=== PATIENT | female | born 1940 | race Caucasian/White ===

== ENCOUNTER 2016-04-26 15:03 | Emergency (ER) | payer MEDICARE, MEDICAID ==
[~2016-04-26] VITALS: Ht 162.6 cm; Wt 96.4 kg
[~2016-04-26 15:03] MED LIST: ADV250INH IH; ALBU8.5H2 INHALATION; PRED-508 PO
[2016-04-26 15:06] VITALS: BP 122/86; PULSE 71; RESP 24; O2SAT 93
--- NOTE | 2016-04-26 15:14 | ED.REPORT ---
HPI-Dyspnea / Wheezing Date of Service Apr 26, 2016 ED Provider: Thom Tong Anna A 76 year old female with a history of COPD, hypertension, asthma, and pneumonia presents to the ED complaining of shortness of breath. She has been short of breath for two days, which has been accompanied by a productive cough with clear sputum. The cough is slightly worse than baseline. She denies fever. The pt was seen for similar symptoms two months ago and was discharged on 4 liters of oxygen. She has been using this regularly at home. She has not been using her albuterol treatments very frequently, though she used it twice today. The pt believes that her symptoms are due to her COPD. Nursing Notes Stated Complaint: SOB Chief Complaint: Respiratory Distress Nursing Notes Reviewed: Yes Allergies: Coded Allergies: Penicillins (Verified Allergy, Unknown, 08/13/15) Sulfa (Sulfonamide Antibiotics) (Verified Allergy, Unknown, 08/13/15) Scheduled Azithromycin (Zithromax) 250 Mg Tablet 250 MG PO DAILY Fluticasone/Salmeterol (Advair 250-50 Diskus) 60 Puff/Inh Disk 1 PUFF IH BID Prednisone (Deltasone) 20 Mg Tablet 40 MG PO BID Prednisone (PredniSONE) 50 Mg Tablet 50 MG PO DAILY Scheduled PRN Albuterol HFA (Proair HFA) 8.5 Gm Hfa.aer.ad 2 PUFFS INHALATION Q4H PRN PRN For Shortness of Breath General Time Seen by MD: 15:13 Chief Complaint Shortness of breath Hx Obtained From: Patient Arrived By: Wheelchair Sudden in Onset?: No Onset Occurred: 2 days ago Symptom Duration: Since onset Recent Healthcare: Recent doctor visit, Recent hospitalization Similar Sx Previous: Yes Past Medical History Past Medical History Notes: PCP: Dr. Ariana Miller Patient had abdominal CT 09/05/2014 for hernia, bilateral hip osteoarthritis was noted at that time. Admitted November 2013 for left lower lobe pneumonia Past Medical History chronic hip and back pain Pneumonia with hospitalization. Reports: Asthma, COPD, Hypertension Past Surgical History Stomach surgery. Right leg surgery. Family History non-contributory Smoking History Current Every Day Smoker, Heavy Tobacco Smoker Social History has been living in her van for ten years Alcohol Use: Denies alcohol use Drug Use: Denies drug use Other Social History: Homeless Ambulatory Status Walker Review of Systems Constitutional: Denies: Fever Respiratory: Reports: Prod cough, clear, Shortness of breath Cardiovascular: Denies: Chest pain Musculoskeletal: Denies: Back pain, Neck pain Skin: Denies Rash Complete sys rev & neg: except as marked. GI: Denies: Abdominal pain Physical Exam Initial Vital Signs Vital Signs (First) Date Time Temp Pulse Resp B/P Pulse Ox O2 Delivery O2 Flow Rate FiO2 04/26/16 15:06 36.2 71 24 122/86 93 Nasal Cannula 4 Initial VS: Reviewed General/Constitutional: Awake, Alert Neck: Atraumatic, Supple, Full range of motion Respiratory / Chest: Atraumatic, Breath sounds = bilat, No respiratory distress prolonged expiration bibasilar rales with inspiration Cardiovascular: Regular rhythm, Heart sounds NL, No murmurs Heart Rate / Rhythm: Positive: Tachycardia ENT: Atraumatic, Airway patent, Mucous membranes moist Abdomen: Atraumatic, Soft, Non-tender Back: Atraumatic, Full range of motion Lower Extremity / Pelvis / MS: Atraumatic, Full range of motion trace edema bilaterally Skin: Atraumatic, Color NL, No rash, Warm, Dry Neurologic: Oriented X3, Speech NL, No motor deficits, No sensory deficits Head / Eyes: Atraumatic, Normocephalic, PERRL, EOMI Upper Extremity / MS: Atraumatic, Full range of motion Psychiatric: Affect NL, Mood NL Interpretation & Diagnostics Lab Results Interpretation Result Diagram: 04/26/16 1546 04/26/16 1546 Test 04/26/16 15:46 White Blood Count 10.1th/mm3 (3.8-10.1) Red Blood Count 5.38mil/mm3 (3.90-5.20) Hemoglobin 16.3g/dL (12.0-15.6) Hematocrit 50.1% (35.0-46.0) Mean Corpuscular Volume 93.1fL (81-100) Mean Corpuscular Hemoglobin 30.3pg (27.0-35.0) Mean Corpuscular Hemoglobin Concent 32.5% (32.0-37.0) Red Cell Distribution Width 13.7% (12.3-15.4) Platelet Count 307bil/L (150-400) Neutrophils (%) (Auto) 65.8% (40-74) Lymphocytes (%) (Auto) 20.8% (14-46) Monocytes (%) (Auto) 10.4% (4-12) Eosinophils (%) (Auto) 2.6% (0-5) Basophils (%) (Auto) 0.3% (0-3) Sodium Level 144mEq/L (134-144) Potassium Level 4.0mEq/L (3.5-5.2) Chloride Level 101mEq/L (97-108) Carbon Dioxide Level 30mmol/L (18-29) Blood Urea Nitrogen 12mg/dL (8-27) Creatinine 0.72mg/dL (0.57-1.00) Estimat Glomerular Filtration Rate 113mL/min (>59) Glucose Level 131mg/dL (60-99) Calcium Level 9.0mg/dL (8.5-10.1) Total Bilirubin 0.3mg/dL (0.0-1.2) Aspartate Amino Transf (AST/SGOT) 16U/L (0-50) Alanine Aminotransferase (ALT/SGPT) 14U/L (0-32) Alkaline Phosphatase 94U/L (25-165) Troponin T < 0.010ug/L (0.0-0.011) Pro-B-Type Natriuretic Peptide 118.1pg/mL (0-738) Total Protein 6.4g/dL (6.4-8.4) Albumin 4.3g/dL (3.4-5.0) Hold [place] Top Tube Received (Received) ECG Interpretation ECG Interpretation: normal sinus rhythm with a rate of [address] changes unchanged from previous dated 02/25/2016 Time: 16:51 Interpreted by: ED physician X-Ray Chest Interpretation Chest Xray Interpretation: IMPRESSION: Bibasilar pneumonia. Continued plain film surveillance is recommended to ensure resolution, and to exclude underlying or central malignancy. Dictated by: Samuel Zamora M.D. on 04/26/2016 at 16:32 Approved by: Samuel Zamora M.D. on 04/26/2016 at 16:32 Interpretation / Wet Read by: Interpret - Radiologist Re-Eval/Medical Decision Med Decision/Clinical Course 76-year-old female with a history of COPD presents with increasing shortness of breath for the past 2 days. She is not in respiratory distress but did have some prolonged expiration and bibasilar Rales. She is stable with a pulse ox of 96 on her home oxygen of 4 L/m. X-ray shows bilateral pneumonia. Patient felt much better after receiving prednisone and 2 breathing treatments here. She notes that she only has one inhaler left so another inhaler was given here in the emergency department. Because she looks so good and has a curb 65 score of only 1 I have elected to treat her as an outpatient. She is not hypotensive or tachypneic at the time of my last check. Patient is in agreement with this plan. It is noted that she lives out of her van but she states that she does have plenty of oxygen and plenty of gas to keep her warm through the night. Source of Hx: Old records Re-Evaluation/Progress #1: Time of Eval: 16:41 Patient Status: Condition improved Re-Evaluation/Progress Note: Pt rechecked, who is feeling significantly better with breathing treatment. She is informed of her radiology results and diagnosis, as well as the plan for discharge. The pt understands and agrees with the plan. All questions are addressed at this time. Re-Evaluation/Progress #2: Time of Eval: 17:08 Patient Status: Condition improved Re-Evaluation/Progress Note: Pt rechecked, who is stable. Options for both admission and discharge are discussed. The pt feels comfortable with discharge. The pt understands and agrees with the plan. All questions are addressed at this time. Counseled Regarding: Diagnosis, Lab results, Need for follow-up, When/why to return to ED Discharge & Departure Impression: Primary Impression: Pneumonia of both lower lobes Pneumonia type: due to unspecified organism Qualified Code: J18.9 - Pneumonia, unspecified organism Additional Impression: COPD exacerbation Disposition: Home Discharge Condition All VS Reviewed: Yes Condition: Stable Patient Instructions: Bacterial Pneumonia (ED), Chronic Obstructive Pulmonary Disease (ED) Additional Instructions: Thank you for entrusting us with your care today. Your tests indicate that you have pneumonia. Take your prednisone and azithromycin once daily as prescribed. You may also use the albuterol inhaler as needed for shortness of breath. Follow up with your primary care physician next week for further evaluation. Return to the emergency department if you develop any new or concerning symptoms. Referrals: Adam Lane MD (PCP) Scribe Attestation Portions of this note were transcribed by John Naqvi I Dr. Tong personally performed the history, physical exam and medical decision-making; I reviewed and confirmed the accuracy of the information in the transcribed note. Signed by: Alana Forbes, 04/26/16 and 15:27. copies to: Adam Lane MD, Gary R DO Apr 26, 2016 15:13 JOHN NAQVI Apr 26, 2016 15:27
[2016-04-26 15:22] VITALS: BP 118/69; PULSE 108; RESP 20; O2SAT 97
[2016-04-26] MEDS ORDERED: Albuterol 2.5 mg/3 mL Inhalation Solution NEB ONE (15:25)
[2016-04-26] MEDS ORDERED: Albuterol-Ipratropium 3 mL Inhalation Solution NEB ONE (15:25)
[2016-04-26] MEDS ORDERED: predniSONE 20 mg Tablet PO ONE (15:25)
[2016-04-26 15:54] LABS: BASOPHILS % (AUTO) 0.3 % (0-3); EOSINOPHILS % (AUTO) 2.6 % (0-5); MONOCYTES % (AUTO) 10.4 % (4-12); Mean Corpuscular Hemoglobin 30.3 pg (27.0-35.0); Mean Corpuscular Volume 93.1 fL (81-100); NEUTROPHILS % (AUTO) 65.8 % (40-74); Platelet Count 307 bil/L (150-400)
[2016-04-26 16:28] VITALS: BP 126/49; PULSE 94; RESP 22; O2SAT 97
[2016-04-26 16:32] LABS: TROPONIN T < 0.010 ug/L (0.0-0.011)
--- NOTE | 2016-04-26 16:34 | DRSVH ---
PROCEDURE: X-RAY CHEST, TWO VIEWS ([id number]) INDICATIONS: sob TECHNIQUE: 2 views of the chest were acquired. COMPARISON: [facility], CR, XR CHEST 2VW, 02/25/2016, 8:05. [facility], CR , XR CHEST 2VW, 02/02/2016, 15:34. [facility], CR, XR CHEST 2VW, 07/10/2015, 10:25. FINDINGS: Surgical changes and devices: None. Lungs and pleura: No pleural effusions or pneumothorax. Mild bibasilar patchy airspace opacity. Mediastinum: Mediastinal contours are normal. Heart size is normal. Bones and chest wall: No suspicious bony abnormalities. Soft tissues appear unremarkable. IMPRESSION: Bibasilar pneumonia. Continued plain film surveillance is recommended to ensure resolutio n, and to exclude underlying or central malignancy. Dictated by: Samuel Zamora M.D. on 04/26/2016 at 16:32 Approved by: Samuel Zamora M.D. on 04/26/2016 at 16:32
[2016-04-26] MEDS ORDERED: Albuterol HFA 60 Puff 8 Gm Inhaler INHALATION ONE (16:45)
[2016-04-26] MEDS ORDERED: PRED50TA PO (17:13)
[2016-04-26] MEDS ORDERED: ZIT250 PO (17:13)
[2016-04-26 18:21] VITALS: BP 132/75; PULSE 87; RESP 18; O2SAT 98
== END 2016-04-26 18:23 | disposition home or self-care (01) ==
LOC: SED 15:03
DX: J18.9 Pneumonia, unspecified organism (principal); J44.1 Chronic obstructive pulmonary disease with (acute) exacerbation; I10 Essential (primary) hypertension; J45.909 Unspecified asthma, uncomplicated; F17.200 Nicotine dependence, unspecified, uncomplicated; Z87.01 Personal history of pneumonia (recurrent); Z59.0 Homelessness; Z88.0 Allergy status to penicillin; Z88.2 Allergy status to sulfonamides
CPT/HCPCS: 36415; 71020; 80053; 83880; 84484; 85025; 93005; 94799; 99285; J7613; J7620

== ENCOUNTER 2016-05-02 07:53 | Emergency (ER) | payer MEDICARE, MEDICAID ==
[~2016-05-02 07:53] MED LIST changes: +PRED50TA PO; +ZIT250 PO
[2016-05-02 07:55] VITALS: BP 163/110; PULSE 102; RESP 22; O2SAT 93
--- NOTE | 2016-05-02 08:06 | ED.REPORT ---
HPI-General Illness Date of Service May 02, 2016 ED Provider: Willie Cm MD Pt is a 76-year-old lady with history of COPD, recurrent pneumonia, homelessness , anxiety, depression, tobaccoism, and urinary incontinence and recent visit to the emergency department 6 days ago, 04/26 for COPD exacerbation and possible bilateral lower lobe pneumonia and was treated with duo nebs, prednisone, azithromycin who presents to the ED complaining of SOB starting this morning. She states that when the cold outside, several days ago, she started wheezing again. She states that her albuterol inhaler frozen the van after standing at the cold weather homeless halfway last evening as well as reports of malfunctioning oxygen concentrator (4 L at home, day and night) she was doing very short of breath and very anxious and decided to visit the emergency department for treatment. Pt reports aggravated nonproductive cough. She denies fever and chills. She states that she is currently homeless and lives out of her car. She currently feels pretty well on 2 L nasal cannula and she is asking for stuart crackers and cranberry juice. Nursing Notes Stated Complaint: TROUBLE BREATHING/COPD Chief Complaint: Respiratory Complaints Nursing Notes Reviewed: Yes Allergies: Coded Allergies: Penicillins (Verified Allergy, Unknown, 05/02/16) Sulfa (Sulfonamide Antibiotics) (Verified Allergy, Unknown, 05/02/16) Scheduled PRN Albuterol HFA (Proair HFA) 8.5 Gm Hfa.aer.ad 2 PUFFS INHALATION Q4H PRN PRN For Shortness of Breath General Time Seen by MD: 08:06 Chief Complaint Breathing problem Sudden in Onset?: No Past Medical History Past Medical History Notes: PCP: Dr. Ariana Miller Patient had abdominal CT 09/05/2014 for hernia, bilateral hip osteoarthritis was noted at that time. Admitted November 2013 for left lower lobe pneumonia Past Medical History chronic hip and back pain Pneumonia with hospitalization. Reports: Asthma, COPD, Hypertension Past Surgical History Stomach surgery. Right leg surgery. Family History non-contributory Smoking History Current Every Day Smoker, Heavy Tobacco Smoker Social History has been living in her van for ten years Alcohol Use: Denies alcohol use Drug Use: Denies drug use Other Social History: Homeless Ambulatory Status Walker Review of Systems A comprehensive review of systems was conducted with the patient and found to be negative except as above in the History of Present Illness. Physical Exam General: Elderly lady lying in bed in no acute distress after 10 minute interview no longer in acute distress, well-developed, well-nourished, appropriately interactive. On 2 L oxygen nasal cannula. HEENT: Normocephalic, atraumatic. External ears without defect. Pupils equal, round, and reactive to light and accommodation. Anicteric sclerae, moist conjunctivae, and no lid lag. Oropharynx free of erythema and cobble stoning with moist mucosa. Neck: Supple with full range of motion. No jugular venous distension. No bruits. No lymphadenopathy or thyromegaly. Cardiovascular: Regular rate and rhythm with no murmurs, rubs, or gallops appreciated Pulmonary: Clear to auscultation bilaterally with no crackles. Decreased air movement diffusely, minor end expiratory wheezes in the upper lobes laterally, abnormal respiratory effort with minor use of accessory muscles. With cough patient is rhonchorous and very wheezy. Abdomen: Bowel tones present. Soft, nontender, nondistended. No hepatosplenomegaly or masses appreciated. Extremities: No clubbing, cyanosis, edema, or lymphadenopathy appreciated. Mild lower extremity nonpitting edema appreciated. Skin: Normal temperature, turgor, and texture; no rash, ulcers, or subcutaneous nodules appreciated. Neurological: Cranial nerves grossly intact. Normal muscle strength, tone, and bulk. Reflexes, coordination, and sensory function within normal limits. No known gait impairment. Psychiatric: Depressed and anxious mood. Alert and oriented to person, place, and time. Vital Signs Vital Signs Date Time Temp Pulse Resp B/P Pulse Ox O2 Delivery O2 Flow Rate FiO2 05/02/16 10:19 84 23 138/66 93 Room Air 05/02/16 09:01 111 22 Nasal Cannula 4 05/02/16 07:55 36.4 102 22 163/110 93 Room Air Re-Eval/Medical Decision Med Decision/Clinical Course Miss Linda Kramer is a 76-year-old lady with history of COPD, recurrent pneumonia, homelessness, anxiety, depression, tobaccoism, and urinary incontinence and recent visit to the emergency department 6 days ago, 04/26 for COPD exacerbation and possible bilateral lower lobe pneumonia and was treated with duo nebs, prednisone, azithromycin who presents to the ED complaining of SOB starting this morning. Patient is homeless and reports living in her van for the last 14 years. She is very anxious individual and feels that without her oxygen or medical help she will . She was encouraged to stop smoking. She was just treated for possible pneumonia and COPD exacerbation 6 days ago with azithromycin and prednisone as well as DuoNeb treatments. Her presentation is much more consistent with mild COPD exacerbation and anxiety, as well as social. She has been treated with duo nebs, oxygen by nasal cannula. She is a 76-year- old with significant social needs therefore social work consult has been placed with attempts to find housing and help with home oxygen concentrator. 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 Patient's vitals are stable and she is feeling much better. Patient will be discharged with detailed instructions follow-up with primary care physician and emergency services if signs and symptoms do not improve. Discharge & Departure Primary Impression: Cough Additional Impressions: COPD (chronic obstructive pulmonary disease) Anxiety Disposition: Home Discharge Condition All VS Reviewed: Yes Condition: Stable Patient Instructions: Chronic Obstructive Pulmonary Disease (ED) Additional Instructions: During your visit to [facility] Emergency Department we treated you with a Duo-Neb nebulizer treatment with great results. You were initially treated with oxygen by nasal cannula at 2 L O2. During your stay your Oxygen levels were normal on room air. Your history and presentation were not consistent with active infection. Following your duoneb treatments you report feeling much better. This is most likely COPD exacerbation. COPD can be managed at home if you do the following. - Stay away from cigarette smoke, or other irritants. - Use your home medications for COPD. - Use your home Oxygen at 2-4 L daily. Do not hesitate to call emergency services or your primary care physician if you experience any of the following. -High unrelenting fevers. -Uncontrolled vomiting. -Severe hypertension. -Syncope or loss of consciousness. -Chest pain or severe shortness of breath. Follow up with your primary care physician in 1-2 weeks time following your emergency department visit for medication checks and general well-being. Referrals: Adam Lane MD (PCP) Attending Statement The patient was seen and examined together with Dr. Antony on 05/02/16 and I agree with the history, exam and plan as outlined in the note above. copies to: Adam Lane MD, COREY P DO May 02, 2016 08:06 Willie Cm MD May 02, 2016 15:53
[2016-05-02] MEDS ORDERED: Albuterol-Ipratropium 3 mL Inhalation Solution NEB ONE (08:15)
[2016-05-02 09:01] VITALS: PULSE 111; RESP 22
[2016-05-02 10:19] VITALS: BP 138/66; PULSE 84; RESP 23; O2SAT 93
== END 2016-05-02 10:12 | disposition home or self-care (01) ==
LOC: SED 07:53
DX: R05 Cough (principal); J44.9 Chronic obstructive pulmonary disease, unspecified; F41.9 Anxiety disorder, unspecified; I10 Essential (primary) hypertension; F17.200 Nicotine dependence, unspecified, uncomplicated; Z59.0 Homelessness; Z79.51 Long term (current) use of inhaled steroids; Z88.0 Allergy status to penicillin; Z88.2 Allergy status to sulfonamides
CPT/HCPCS: 94664; 99284; J7620

== ENCOUNTER 2016-05-05 13:11 | Inpatient (IN) | payer MEDICARE, MEDICAID ==
[~2016-05-05] VITALS: Ht 162.6 cm; Wt 97.3 kg
[2016-05-05] VITALS (9 sets, daily range): BP systolic 119–144; BP diastolic 70–95; PULSE 85–110; RESP 20–48; O2SAT 88–95
[~2016-05-05 13:11] MED LIST changes: -ADV250INH IH; -PRED-508 PO; -PRED50TA PO; -ZIT250 PO
[2016-05-05] MEDS ORDERED: Albuterol-Ipratropium 3 mL Inhalation Solution NEB ONE ×2 (13:40→14:30)
[2016-05-05] MEDS ORDERED: MethylprednisoLONE Sodium Succinate 62.5 mg/mL 2 mL Inj IVPUSH ONE ×2 (13:40→14:30)
[2016-05-05] MEDS ORDERED: 0.9% Sodium Chloride 1,000 ML IV ONE (13:40)
--- NOTE | 2016-05-05 13:42 | ED.REPORT ---
HPI-General Illness Date of Service May 05, 2016 ED Provider: Félix Walters MD The patient is a 76 year old female with history of COPD, asthma, hypertension, and pneumonia, who presents to the emergency department complaining of shortness of breath. She was seen here 2 days ago for the same symptoms. She was discharged home with antibiotics and prednisone. She lost the prednisone pills, her last dose was yesterday. She has also not been using her oxygen. She denies chest pain, fever, chills, nausea, vomiting or diarrhea. Nursing Notes Stated Complaint: TROUBLE BREATHING Chief Complaint: Respiratory Distress Nursing Notes Reviewed: Yes Allergies: Coded Allergies: Penicillins (Verified Allergy, Unknown, 05/05/16) Sulfa (Sulfonamide Antibiotics) (Verified Allergy, Unknown, 05/05/16) Scheduled Azithromycin (Zithromax (Z-Nikita)) 250 Mg Tablet 250 MG PO DIRECTED Take two tablets by mouth on day 1, then take one tablet daily on days 2 through 5. Fluticasone/Salmeterol (Advair 250-50 Diskus) 60 Puff/Inh Disk 1 PUFF IH BID Prednisone (PredniSONE) 20 Mg Tablet 20 MG PO DAILY Scheduled PRN Albuterol HFA (Proair HFA) 8.5 Gm Hfa.aer.ad 2 PUFFS INHALATION Q4H PRN PRN For Shortness of Breath General Time Seen by MD: 13:39 Chief Complaint Other (shortness of breath) Hx Obtained From: Patient Arrived By: Walk-in Sudden in Onset?: Yes Onset Occurred: 5 - 8 hours ago Symptom Duration: Since onset Severity: Current: No pain currently Severity: Maximum: No pain Recent Healthcare: No recent hospitalization, Recent doctor visit Similar Sx Previous: Yes Past Medical History Past Medical History Notes: PCP: Dr. Ariana Miller Past Medical History chronic hip and back pain Pneumonia with hospitalization. Reports: Asthma, COPD, Hypertension Past Surgical History Stomach surgery. Right leg surgery. Family History non-contributory Smoking History Current Every Day Smoker, Heavy Tobacco Smoker Social History has been living in her van for ten years Alcohol Use: Denies alcohol use Drug Use: Denies drug use Other Social History: Homeless Ambulatory Status Walker Review of Systems Full Review of Systems Constitutional: Denies: Chills, Fever Respiratory: Reports: Non-productive cough, Shortness of breath Cardiovascular: Denies: Chest pain GI: Denies: Diarrhea, Nausea, Vomiting Complete sys rev & neg: except as marked. Physical Exam Vital Signs Vital Signs Date Time Temp Pulse Resp B/P Pulse Ox O2 Delivery O2 Flow Rate FiO2 05/05/16 15:18 94 Nasal Cannula 2.5 05/05/16 13:31 36.9 108 48 144/95 90 Room Air Initial VS: Reviewed Head / Eyes: Atraumatic, Normocephalic, PERRL ENT: Mucous membranes moist, Conjunctiva normal, No scleral icterus Neck: Supple, Non-tender, Full range of motion Lymphatic: No lymphadenopathy Extremities: Vascular intact, Neuro intact, No swelling, No tenderness Skin: Warm, Dry, No cyanosis Neurologic: Alert, Oriented, Nonfocal Psychiatric: Mood/affect normal, Behavior normal, Normal thought content General/Constitutional: Awake, Alert, No acute distress, Cooperative Respiratory / Chest: No respiratory distress, No stridor, No chest tenderness, No chest wall deformity Decreased air movement throughout, prolonged expiratory phase, scattered wheezing, somewhat tachypneic. Cardiovascular: Heart rate NL, Regular rhythm, Heart sounds NL, No gallop, No murmurs, No rubs, Cap refill not delayed, Peripheral circulation NL Abdomen: Atraumatic, Soft, Non-tender, No guarding, No rebound, BS normoactive , No distention, No hernia, No palpable mass, No pulsatile mass Lower Extremity / Pelvis / MS: No deformity, Neurologic intact, Vascular intact No calf swelling or tenderness. Interpretation & Diagnostics Lab Results Interpretation Result Diagram: 05/05/16 1510 05/05/16 1510 Test 05/05/16 15:10 White Blood Count 12.1th/mm3 (3.8-10.1) Red Blood Count 5.38mil/mm3 (3.90-5.20) Hemoglobin 16.3g/dL (12.0-15.6) Hematocrit 50.7% (35.0-46.0) Mean Corpuscular Volume 94.2fL (81-100) Mean Corpuscular Hemoglobin 30.3pg (27.0-35.0) Mean Corpuscular Hemoglobin Concent 32.1% (32.0-37.0) Red Cell Distribution Width 13.7% (12.3-15.4) Platelet Count 309bil/L (150-400) Neutrophils (%) (Auto) 61.3% (40-74) Lymphocytes (%) (Auto) 24.4% (14-46) Monocytes (%) (Auto) 12.4% (4-12) Eosinophils (%) (Auto) 1.4% (0-5) Basophils (%) (Auto) 0.3% (0-3) Sodium Level 145mEq/L (134-144) Potassium Level 4.1mEq/L (3.5-5.2) Chloride Level 102mEq/L (97-108) Carbon Dioxide Level 28mmol/L (18-29) Blood Urea Nitrogen 13mg/dL (8-27) Creatinine 0.64mg/dL (0.57-1.00) Estimat Glomerular Filtration Rate 129mL/min (>59) Glucose Level 95mg/dL (60-99) Calcium Level 8.6mg/dL (8.5-10.1) Magnesium Level 2.3mg/dL (1.6-2.6) Total Bilirubin 0.3mg/dL (0.0-1.2) Aspartate Amino Transf (AST/SGOT) 19U/L (0-50) Alanine Aminotransferase (ALT/SGPT) 18U/L (0-32) Alkaline Phosphatase 98U/L (25-165) Pro-B-Type Natriuretic Peptide 112.7pg/mL (0-738) Total Protein 6.7g/dL (6.4-8.4) Albumin 4.0g/dL (3.4-5.0) Hold [place] Top Tube Received (Received) ECG Interpretation ECG Interpretation: Sinus rhythm Inferior Q waves No ST segment elevation No T wave abnormalities No prior available for comparison Time: 14:02 Interpreted by: ED physician X-Ray Chest Interpretation Chest Xray Interpretation: IMPRESSION: 1. No acute cardiopulmonary disease. 2. Nonacute lateral left seventh rib fracture. Dictated by: Isaiah Pereyra M.D. on 05/05/2016 at 14:26 Interpretation / Wet Read by: Interpret - Radiologist Re-Eval/Medical Decision Med Decision/Clinical Course The patient is a 76 year old female with history of COPD, asthma, hypertension, and pneumonia, who presents to the emergency department complaining of shortness of breath. She was seen here 2 days ago for the same symptoms. She was discharged home with antibiotics and prednisone. She lost the prednisone pills, her last dose was yesterday. She has also not been using her oxygen. Upon arrival the patient is afebrile stable vital signs. She has oxygen saturation in the low 90s on 3 L by nasal cannula and has markedly increased work of breathing and expiratory wheezing. CXR: Obtained, reviewed and interpreted by myself shows no evidence of acute infiltrates, effusions or pneumothorax. Cardiac and mediastinal silhouette normal. No bony or soft tissue abnormalities. Laboratory studies were obtained and are notable for moderate leukocytosis, stable hematocrit, good renal function, normal electrolytes and negative troponin. The patient was treated with 125 mg of IV methylprednisolone, IV fluids and back -to-back DuoNeb treatments followed by an albuterol nebulizer. The patient reported improvement in her symptoms though she remained with significant work of breathing and continued to have oxygen saturations in the low 90s on her baseline oxygen requirement. She did not feel that she was well enough to go home. The patient has significantly limited resources and ability to care for herself and I feel that she requires admission at this time for further management of her COPD exacerbation. At this time initial screening EKG as interpreted by myself and documented above as well as negative troponin are reassuring against acute coronary syndrome. Overall presentation and risk factors unconvincing for pulmonary embolism. I do not feel that further workup for PE is immediately indicated. Patient was discussed with the medical hospitalist and transferred in stable condition for further management. Source of Hx: Old records Time of Eval: 14:24 Re-Evaluation/Progress Note: The patient feels that her symptoms are bad enough that she should be in the hospital. Consultation : Referral / Consult Name: Candace Santoro MD Consulted With: Hospitalist Requested Call at: 14:30 Call Returned at: 14:38 Operator Technician: Will see patient, Agrees with eval, Agrees with plan, Accepts admit Counseled Regarding: Diagnosis, Lab results, Need for admission Discharge & Departure Primary Impression: COPD exacerbation Additional Impressions: Respiratory distress Hypoxia Noncompliance with medication regimen Leukocytosis Leukocytosis type: unspecified Qualified Code: D72.829 - Elevated white blood cell count, unspecified Tachypnea Disposition: ADMITTED TO HOSPITAL Discharge Condition All VS Reviewed: Yes Condition: Stable Referrals: Adam Lane MD (PCP) Crit Care Except Billable Proc Time Spent: 75-104 minutes Services Performed: Patient management by me, Time spent at bedside, Reviewing test results, Reviewing imaging, Discussing patient care, Documentation in record Scribe Attestation Portions of this note were transcribed by Anabell Alva. I, Dr. Walters personally performed the history, physical exam and medical decision-making; I reviewed and confirmed the accuracy of the information in the transcribed note. Signed by: Alana Tapia, 05/04/2015 and 2221. copies to: Adam Lane MD, Beck O MD May 05, 2016 13:42 Anabell Alva May 05, 2016 13:43
--- NOTE | 2016-05-05 14:29 | DRSVH ---
PROCEDURE: X-RAY CHEST, TWO VIEWS ([id number]) INDICATIONS: 76 year-old female with a shortness of breath. TECHNIQUE: 2 views of the chest were acquired. COMPARISON: [facility], CT, CHEST ANGIO-PE, 11/13/2013, 0:20. [facility], CR , XR CHEST 2VW, 04/26/2016, 16:10. [facility], CR, XR CHEST 2VW, 02/25/2016, 8:05. [facility], CR, XR CHEST 2VW, 02/02/2016, 15:34. FINDINGS: Surgical changes and devices: None. Lungs and pleura: No pleural effusions or pneumothorax. Lungs are clear, except for persistent ling ular scarring. Mediastinum: Mediastinal contours are normal. Heart size is normal. There is aortic atherosclerosi s. Bones and chest wall: No suspicious bony abnormalities. Nonacute left seventh rib fracture is again noted. Soft tissues appear unremarkable. IMPRESSION: 1. No acute cardiopulmonary disease. 2. Nonacute lateral left seventh rib fracture. Dictated by: Isaiah Pereyra M.D. on 05/05/2016 at 14:26 Approved by: Isaiah Pereyra M.D. on 05/05/2016 at 14:28
[2016-05-05] MEDS ORDERED: Albuterol 2.5 mg/3 mL Inhalation Solution NEB ONE (14:30)
[2016-05-05] MEDS ORDERED: Alum-Mag Hydrox-Simeth 30 mL Suspension PO PRN (14:40)
[2016-05-05] MEDS ORDERED: Ondansetron 2 mg/mL 2 mL Inj IVPUSH PRN (14:40)
[2016-05-05] MEDS ORDERED: PRE20 PO (15:22)
[2016-05-05] MEDS ORDERED: ADV250INH IH (15:22)
[2016-05-05] MEDS ORDERED: AZIT250T4 PO (15:22)
[2016-05-05 15:23] LABS: BASOPHILS % (AUTO) 0.3 % (0-3); EOSINOPHILS % (AUTO) 1.4 % (0-5); MONOCYTES % (AUTO) 12.4 % (4-12); Mean Corpuscular Hemoglobin 30.3 pg (27.0-35.0); Mean Corpuscular Volume 94.2 fL (81-100); NEUTROPHILS % (AUTO) 61.3 % (40-74); Platelet Count 309 bil/L (150-400)
[2016-05-05] MEDS ORDERED: levoFLOXacin Inj 500 MG in IV Premix 1 EACH IV ONE (15:40)
[2016-05-05] MEDS ORDERED: Albuterol 2.5 mg/3 mL Inhalation Solution NEB PRN (15:40)
--- NOTE | 2016-05-05 15:48 | PCM.HPMED ---
Subjective Date of Service May 05, 2016 Primary Provider: Admitting Physician: Candace Santoro MD Primary Care Physician: Adam Lane MD Attending Physician: Candace Santoro MD Chief Complaint: SOB despite medications HISTORY was OBTAINED FROM PATIENT / MEDITECH NOTES History of present illness 76y f O2 2-3L dependent, on 04/26 and 05/03 she was seen AT urgent care, was told that she had a PNA, lost prednisone. With ongoing SOB/cough despite antibiotics , and no O2 recently per ER notes, she presented to ER now w/ ongoing SOB Cough increased work of breathing. ongoing smoker. sick contact +. productive yellow phelgm. doesn't want to stay. In the ER 36.9, HR108, RR48, 144/95, 90% room air, multiple DuoNeb nebs, Solu- Medrol, diffuse wheezing Last evaluated April 26 2016 Review of Systems - none of the following - F/C/sick contact / wt change/ JOHNSON / lightheaded / dizziness / sob / cough / cp / acid reflux / n/v/diarrhea / bleeding/bruising / / change in voiding / yeast infections / rash ambulates chronic leg swelling urinary incontinence FAMILY HX she does not know any family hx SOCIAL HX smoker, lives in her van MEDICATIONS on 05/03/2016 UC list ADVAIR PREDNISON 20 Past Medical/Surgical HX PCP: Dr. Ariana Miller COPD/O2 dependent 2-3 L/ asthma Cataracts Headache hypertension Pneumonia Asthma/emphysema/COPD Gastric ulcer/GERD Recurrent UTI Arthritis/back injury/.chronic hip and back pain Depression right leg operation stomach operation Allergies Coded Allergies: Penicillins (Verified Allergy, Unknown, 05/05/16) Sulfa (Sulfonamide Antibiotics) (Verified Allergy, Unknown, 05/05/16) PMH Social History Hx Alcohol Use: No Hx Substance Use: No Hx Tobacco Use: Yes Smoking Status: Current Every Day Smoker, Heavy Tobacco Smoker Exam Vital Signs Vital Sign - Last Date Time Temp Pulse Resp B/P Pulse Ox O2 Delivery O2 Flow Rate FiO2 05/05/16 15:18 94 Nasal Cannula 2.5 05/05/16 13:31 36.9 108 48 144/95 Exam Exam on admission 2L NC NAD A and O x 3 mood affect WNL NC/AT no icterus no injected eyes EOMI PERRL /no pharyngeal lesions/ no oral lesions / hearing intact Supple neck bilateral soft wheezes, equal chest rise / no accessory muscle use / speaks in phrases / no rrw RRR S1 S2 / no mrg / 2+ radial pulses Soft nt nd + BS no hepatosplenomegaly trace edema no cyanosis no ecchymosis of lower extremities No rash / no jaundice CAMPOS symmetrical facies Trop0.01 BNP 112 procalcitonin pending UA pending LFT normal Imaging PROCEDURE: X-RAY CHEST, TWO VIEWS ([id number]) INDICATIONS: 76 year-old female with a shortness of breath. TECHNIQUE: 2 views of the chest were acquired. COMPARISON: [facility], CT, CHEST ANGIO-PE, 11/13/2013, 0:20. [facility], CR, XR CHEST 2VW, 04/26/2016, 16:10. [facility], CR, XR CHEST 2VW, 02/25/2016, 8:05. [facility], CR, XR CHEST 2VW, 02/02/2016, 15:34. FINDINGS: Surgical changes and devices: None. Lungs and pleura: No pleural effusions or pneumothorax. Lungs are clear, except for persistent lingular scarring. Mediastinum: Mediastinal contours are normal. Heart size is normal. There is aortic atherosclerosis. Bones and chest wall: No suspicious bony abnormalities. Nonacute left seventh rib fracture is again noted. Soft tissues appear unremarkable. IMPRESSION: 1. No acute cardiopulmonary disease. 2. Nonacute lateral left seventh rib fracture. Lab and Diagnostics Result Diagram: 05/05/16 1510 Assessment & Plan Active issues and reason for admission COPD exacerbation/bronchitis, diffuse wheezing, recent pna per UC per patinet --levaquin/duoneb/solumedrol --pending sputum cx respi viral --serial Trop urinary incontinence --pending UA, hx of UTIs Chronic issues known prior to admission, present on admission COPD/O2 dependent 2-3 L/ asthma Cataracts Headache hypertension Pneumonia Asthma/emphysema/COPD Gastric ulcer/GERD Recurrent UTI Arthritis/back injury/.chronic hip and back pain Depression right leg operation stomach operation --nicotnie patch --protonix while on steroid. --ativan anxiety Diet cardiac DVT prophylaxis lovenox Code full Disposition inpt, lives in van, walker use Assessment and plan were discussed with patient l Candace Santoro MD May 05, 2016 15:48
[2016-05-05 15:59] LABS: Magnesium 2.3 mg/dL (1.6-2.6)
[2016-05-05 16:01] LABS: TROPONIN T < 0.010 ug/L (0.0-0.011)
[2016-05-05] MEDS ORDERED: MethylprednisoLONE Sodium Succinate 62.5 mg/mL 2 mL Inj IVPUSH SCH (16:30)
[2016-05-05] MEDS: Albuterol-Ipratropium 3 mL Inhalation Solution NEB SCH ×3 (20:30→23:54)
[2016-05-05] MEDS: Pantoprazole 20 mg ER24 Tablet PO SCH (20:30)
[2016-05-06] VITALS (11 sets, daily range): BP systolic 113–124; BP diastolic 46–75; PULSE 79–97; RESP 18–22; O2SAT 87–94
[2016-05-06] MEDS: MethylprednisoLONE Sodium Succinate 62.5 mg/mL 2 mL Inj IVPUSH SCH ×2 (00:17→07:48)
[2016-05-06] MEDS: Albuterol-Ipratropium 3 mL Inhalation Solution NEB SCH ×5 (00:30→21:44)
--- NOTE | 2016-05-06 05:21 | NUR ---
Med Refusal Pt refused protonix this evening, stating "there's nothing wrong with my stomach". Encouraged patient regarding ABX and GI S/E. Pt is unhappy about being here, and is tired of having to come so often. Pt more compliant with IV medications but still needing encouragement and explanation of necessity.
[2016-05-06 06:05] LABS: APPEARANCE,URINE CLEAR (CLEAR,HAZY); COLOR,URINE YELLOW (YELLOW); OCCULT BLOOD,URINE NEGATIVE (NEGATIVE); PH,URINE 5.5 (5.0-8.0); UROBILINOGEN,URINE NORMAL (NORMAL)
[2016-05-06 07:03] LABS: TROPONIN T 0.01 ug/L (0.0-0.011)
[2016-05-06] MEDS ORDERED: levoFLOXacin Inj 500 MG in IV Premix 1 EACH IV SCH (08:30)
[2016-05-06] MEDS: Pantoprazole 20 mg ER24 Tablet PO SCH (08:45)
--- NOTE | 2016-05-06 11:41 | NUR ---
spiritual care: pt request conversational visit. pt known to log preparer from previous admissions. Pt shared her mixed and overwhelming feelings that led her to seek medical help. pt described ongoing weariness and discouragement especially with managing her oxygen needs while maintaining her independence. (pt lives in car--battery operated O2 device drains car battery further limiting her ability to keep warm, have transportation and care for herself) Pt shared her specific medical concerns: health of heart, possible cancer diagnosis and ongoing effects from incontinence. Pt offered that she wants to cope with this hospitalization by asking questions and making the most of the care she's offered. 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 Pt said she felt encouraged by discussion and asked me return later following her meeting with medical staff.
--- NOTE | 2016-05-06 15:35 | PCM.PNMED ---
Subjective Date of Service May 06, 2016 Subjective says breathing better but still not fully back to baseline. denies any other new issues/complaints Exam Vital Signs Vital Sign - Last Date Time Temp Pulse Resp B/P Pulse Ox O2 Delivery O2 Flow Rate FiO2 05/06/16 14:22 36.8 94 20 120/70 92 Room Air 05/06/16 00:00 2.00 General: Alert, Cooperative, No Acute Distress Eyes: Scleral Anicteric Nose: Mucous Membr Moist/[place] Mouth: Mucous Membr Moist/[place] Neck: Supple Chest & Lungs: Chest Wall Normal, Expiratory wheezes (mild bilateral) Cardiovascular: Regular Rate/Rhythm Pulses: NL carotid, radial, femoral, DP, PT Abdomen: Non-tender, Non-distended, Normoactive bowel tones, Soft Extremities: No cyanosis/clubbing/edma bilat Neurological: Grossly Neurologically Intact, Normal Speech Additional Information: Psych: appropriate IVs and Medications Medications Reviewed: Medications were reviewed in detail Lab and Diagnostics Result Diagram: 05/05/16 1510 05/05/16 1510 Assessment & Plan 75-year-old female with history of COPD, and hypertension, active smoker and on continues O2 supplement at home presents was seen at urgent care on 05/03 and was apparently started on tapering dose of prednisone but she lost her prednisone and presents with ongoing SOB/cough and increased work of breathing. # Acute COPD exacerbation, present on admission. - no evidence of active pneumonia on CXR - viral PCR negative - afebrile and procalcitonin negative - c/w Abx for UTI not pneumonia - c/w Neb treatment - no significant wheezing on exam so will hold off on additional steroids at this time - c/w supplemental O2 # Acute UTI present on admission - c/w Levofloxacin (day 2) - f/u pending cultures # Suspected pneumonia on admission seems unlikely as noted above # Depression, chronic, present on admission. stable. - pt meeting with Keyshawn today # History of Hypertension, chronic. - currently stable and well controlled - Not on blood pressure medication at home - we will continue to monitor this # History of Asthma, chronic, present on admission - Treatment as noted above Dispo: 1-2 days Yony Bowling May 06, 2016 15:34
[2016-05-06] MEDS ORDERED: levoFLOXacin Dose Per Pharmacist XX ONE (15:45)
--- NOTE | 2016-05-06 16:26 | NUR ---
Social Work-initial assessment: Data:See initial assessment. Pt is a 75 y/o female who was admitted on 05/05/16 for COPD per H&P. Pt's insurance is [employer] and PCP is Adam Lane MD. EMR reviewed. Pt's readmission score is 3-high risk. Pt discharged home last with home O2 through [employer]. SW met with pt at bedside, Pt alert and oriented x3. Pt resides in a van where she has been residing for the last 10 years. Pt uses a fww at baseline and does drive. Pt has no HH or SNF history. Pt access [employer] for showers and meals. SW discussed DPOA/ advanced directive with pt, pt declines completing this and declines any resources at this time. Pt states her van is in the parking lot and she will provide transport for herself at discharge. Pt has home O2 through [employer]. Pt has been up ambulating with her Fww in the hallways independent, no PT needs. No anticipated discharge needs. SW provided phone number and plan on white board in room. SW will continue to follow if needs arise. Assessment:Pt who is independent at baseline. Plan:Pt to discharge back to her van when medically stable via POV. No anticipated discharge needs. SW will continue to follow if need arise. DORINA Delgadillo Addendum: 05/06/16 at 1628 by AME SCOTT SS Amended: Links added.
--- NOTE | 2016-05-06 17:56 | NUR ---
spiritual care: follow up pt engaged in conversation including reflections on the day, concerns about her health and happiness. Pt described her qualities that give her clint and meaning: adventures, relationships with others, social change. blessing
--- NOTE | 2016-05-06 18:32 | NUR ---
Case Management: Explained IMM to patient at 1725, all questions answered. Signed original placed in chart, copy given to patient. Caren Quispe RN
[2016-05-06] MEDS ORDERED: levoFLOXacin 250 mg Tablet PO SCH (19:30)
[2016-05-07] VITALS (7 sets, daily range): BP systolic 112–145; BP diastolic 65–84; PULSE 68–88; RESP 20–30; O2SAT 91–96
[2016-05-07] MEDS: Albuterol-Ipratropium 3 mL Inhalation Solution NEB SCH ×3 (00:21→06:31)
[2016-05-07] MEDS ORDERED: Pantoprazole 20 mg ER24 Tablet PO SCH (07:30)
[2016-05-07] MEDS ORDERED: LVF250T PO (11:55)
--- NOTE | 2016-05-07 11:59 | PCM.DIMED ---
Discharge Instructions Date of Service May 07, 2016 Dates of Hospitalization May 05, 2016 at 15:27 Discharge Diagnosis Discharge Diagnosis # Acute COPD exacerbation, present on admission. Resolved - no evidence of active pneumonia on chest x-ray - viral PCR negative # Acute urinary tract infection, present on admission - followup with primary care provider in 1-2 days for the final urine culture results # Suspected pneumonia on admission seems unlikely # Depression, chronic, present on admission. stable. # History of Hypertension, chronic. stable # History of Asthma, chronic, present on admission. stable Diet Low fat, Low Sodium, Heart Healthy Activity No restrictions Call your provider Fever or Chills, Shortness of breath, Chest pain Patient Instructions Seek immediate medical attention if any new or worsening signs or symptoms occur. Follow-up plan 1. Followup with primary care provider in 2-3 days (Call to setup the appointment) Follow-up Provider: Adam Lane MD, Masoud May 07, 2016 11:59
--- NOTE | 2016-05-07 13:57 | NUR ---
Social Work-discharge: Data:EMR Reviewed. Pt is on day 2 of hospitalization for COPD exacerbation per H&P. Pt is medically stable to discharge today. Pt resides in her van and has home O2 through [employer]. Confirmed plan with pt and her van is parked in the parking lot. Pt uses fww for ambulation and has been up independent in the hallways, no PT needs. No discharge needs identified. All updated and agreeable to plan. Assessment:Pt who is independent at baseline. Plan:Pt to discharge back to her Van today via POV. No discharge needs identified. All updated and agreeable to plan. DORINA Delgadillo
--- NOTE | 2016-05-07 14:23 | NUR ---
discharge assumed care of patient at 1320. patient discharge paperwork completed per day rn. patient had visit with shop tech as requested. tele and saline lock dc'd per day jose crow. all paperwork signed and completed per day jose crow and signed per patient. patient with 2 friends in room. patient states understanding regarding all dc instructions and states "i am ready to go". patient states "i had a good visit with the shop tech". patient dc'd in stable condition via wheelchair with 2 friends per gluing machine operator cecile at 1405.
--- NOTE | 2016-05-07 14:58 | NUR ---
spiritual care: pt request/nursing conversational visit as pt ready to discharge. explored anxieties, coping and fears. follow up plan made. pt's 2 friends in room, assisting.
--- NOTE | 2016-05-07 15:14 | PCM.DC.MED ---
Discharge Summary Date of Service May 07, 2016 Dates of Hospitalization Date of Hospital Admission May 05, 2016 at 15:27 Date of Discharge: May 07, 2016 Providers: Admitting Physician: Candace Santoro MD Primary Care Physician: Adam Lane MD Attending Physician: Candace Santoro MD Diagnosis at Time of Discharge Diagnosis at Time of Discharge # Acute COPD exacerbation, present on admission. Resolved - no evidence of active pneumonia on chest x-ray - viral PCR negative # Acute urinary tract infection, present on admission - followup with primary care provider in 1-2 days for the final urine culture results # Suspected pneumonia on admission seems unlikely # Depression, chronic, present on admission. stable. # History of Hypertension, chronic. stable # History of Asthma, chronic, present on admission. stable Procedures XRay, CTs & MRIs Date of Service: 05/05/16 1340 PROCEDURE: X-RAY CHEST, TWO VIEWS ([id number]) IMPRESSION: 1. No acute cardiopulmonary disease. 2. Nonacute lateral left seventh rib fracture. Dictated by: Isaiah Pereyra M.D. on 05/05/2016 at 14:26 Approved by: Isaiah Pereyra M.D. on 05/05/2016 at 14:28 Brief History 75-year-old female with history of COPD, and hypertension, active smoker and on continues O2 supplement at home presents was seen at urgent care on 05/03 and was apparently started on tapering dose of prednisone but she lost her prednisone and presents with ongoing SOB/cough and increased work of breathing. Hospital Course # Acute COPD exacerbation, present on admission. - no evidence of active pneumonia on CXR - viral PCR negative - afebrile and procalcitonin negative - c/w Abx for UTI not pneumonia - Neb treatment - no significant wheezing on exam so will hold off on additional steroids at this time - c/w supplemental O2 # Acute UTI present on admission - c/w Levofloxacin (day 3) - f/u pending cultures as outpatient # Suspected pneumonia on admission seems unlikely as noted above # Depression, chronic, present on admission. stable. # History of Hypertension, chronic. - currently stable and well controlled - Not on blood pressure medication at home # History of Asthma, chronic, present on admission - Treatment as noted above by day of d/c lungs CTA bilaterally. pt ambulating the hallway without supplemental O2 without any difficulty. no cough noted on exam Exam Vital Signs (Last) Date Time Temp Pulse Resp B/P Pulse Ox O2 Delivery O2 Flow Rate FiO2 05/07/16 13:58 37.0 85 26 145/84 92 Room Air 05/06/16 00:00 2.00 Test 05/05/16 15:10 05/06/16 05:50 05/06/16 06:03 White Blood Count 12.1th/mm3 (3.8-10.1) Red Blood Count 5.38mil/mm3 (3.90-5.20) Hemoglobin 16.3g/dL (12.0-15.6) Hematocrit 50.7% (35.0-46.0) Mean Corpuscular Volume 94.2fL (81-100) Mean Corpuscular Hemoglobin 30.3pg (27.0-35.0) Mean Corpuscular Hemoglobin Concent 32.1% (32.0-37.0) Red Cell Distribution Width 13.7% (12.3-15.4) Platelet Count 309bil/L (150-400) Neutrophils (%) (Auto) 61.3% (40-74) Lymphocytes (%) (Auto) 24.4% (14-46) Monocytes (%) (Auto) 12.4% (4-12) Eosinophils (%) (Auto) 1.4% (0-5) Basophils (%) (Auto) 0.3% (0-3) Sodium Level 145mEq/L (134-144) Potassium Level 4.1mEq/L (3.5-5.2) Chloride Level 102mEq/L (97-108) Carbon Dioxide Level 28mmol/L (18-29) Blood Urea Nitrogen 13mg/dL (8-27) Creatinine 0.64mg/dL (0.57-1.00) Estimat Glomerular Filtration Rate 129mL/min (>59) Glucose Level 95mg/dL (60-99) Calcium Level 8.6mg/dL (8.5-10.1) Magnesium Level 2.3mg/dL (1.6-2.6) Total Bilirubin 0.3mg/dL (0.0-1.2) Aspartate Amino Transf (AST/SGOT) 19U/L (0-50) Alanine Aminotransferase (ALT/SGPT) 18U/L (0-32) Alkaline Phosphatase 98U/L (25-165) Pro-B-Type Natriuretic Peptide 112.7pg/mL (0-738) Total Protein 6.7g/dL (6.4-8.4) Albumin 4.0g/dL (3.4-5.0) Hold [place] Top Tube Received (Received) Urine Color Yellow (YELLOW) Urine Appearance Clear (CLEAR,HAZY) Urine pH 5.5 (5.0-8.0) Urine Specific [place] 1.029 (1.003-1.035) Urine Protein Negativemg/dL (NEG,TRACE) Urine Glucose (UA) >1000mg/dL (NEGATIVE) Urine Ketones Negativemg/dL (NEGATIVE) Urine Occult Blood Negative (NEGATIVE) Urine Nitrite Positive (NEGATIVE) Urine Bilirubin Negative (NEGATIVE) Urine Urobilinogen Normalmg/dL (NORMAL) Urine Leukocyte Esterase Negative (NEGATIVE) Urine RBC 0-2/hpf (0-2) Urine WBC 11-50/hpf (0-5) Urine Epithelial Cells Occasional/hpf (NONE-MOD) Urine Crystals None seen (NONE SEEN) Urine Bacteria Moderate/hpf (NONE-FEW) Urine Hyaline Casts None/lpf (NONE) Urine Granular Casts None seen (NONE SEEN) Urine Waxy Casts None seen (NONE SEEN) Urine Red Blood Cell Casts None seen (NONE SEEN) Urine White Blood Cell Casts None seen (NONE SEEN) Urine Mucus None seen (None Seen) Urine Trichomonas None seen (NONE SEEN) Urine Yeast None (NONE SEEN) Urine Culture Reflexed Indicated Troponin T 0.010ug/L (0.0-0.011) Procalcitonin 0.07ng/mL (0.00-0.08) Discharge Medications Discharge Medications Fluticasone/Salmeterol (Advair 250-50 Diskus) 60 Puff/Inh Disk 1 PUFF IH BID ( Reported) Levofloxacin (Levaquin) 250 Mg Tablet 250 MG PO DAILY@1930 Prescribed by: BERNICE NAVARRETE MD As needed Albuterol HFA (Proair HFA) 8.5 Gm Hfa.aer.ad 2 PUFFS INHALATION Q4H PRN PRN For Shortness of Breath (Reported) Followup Plan Disposition: Home Follow-up plan 1. Followup with primary care provider in 2-3 days (Call to setup the appointment) Discharge Diet: Low fat, Low Sodium, Heart Healthy Discharge Activity: No restrictions Patient Instructions Seek immediate medical attention if any new or worsening signs or symptoms occur. Follow-up Provider: Adam Lane MD Time spent 30 min copies to: Adam Lane MD, Masoud May 07, 2016 15:14
[2016-05-08] MEDS ORDERED: PRE20 PO (11:41)
== END 2016-05-07 14:05 | disposition home or self-care (01) | DRG 191 ==
LOC: SED 13:11 → MPC 15:27 → OBSVTOIN 15:27
PROVIDERS: ADMIT Urology; ATTEND Urology
DX: J44.1 Chronic obstructive pulmonary disease with (acute) exacerbation (principal); N39.0 Urinary tract infection, site not specified; J45.909 Unspecified asthma, uncomplicated; I10 Essential (primary) hypertension; F17.210 Nicotine dependence, cigarettes, uncomplicated; Z99.81 Dependence on supplemental oxygen; F32.9 Major depressive disorder, single episode, unspecified; F41.9 Anxiety disorder, unspecified; K21.9 Gastro-esophageal reflux disease without esophagitis

== ENCOUNTER 2016-05-07 23:00 | Emergency (ER) | payer MEDICARE, MEDICAID ==
[~2016-05-07] VITALS: Ht 162.6 cm; Wt 102.3 kg
[~2016-05-07 23:00] MED LIST changes: +ADV250INH IH; +AZIT250T4 PO; +LVF250T PO; +PRE20 PO
[2016-05-07 23:06] VITALS: BP 153/118; PULSE 114; RESP 60; O2SAT 87
--- NOTE | 2016-05-07 23:09 | ED.REPORT ---
HPI-Dyspnea / Wheezing Date of Service May 07, 2016 ED Provider: Fritz Littlejohn MD Patient is a 76 year old female with a history of COPD, asthma, and pneumonia previously requiring hospitalization who presents to the ED complaining of increased shortness of breath and wheezing that began this evening. The patient was admitted to [facility] from 05/05-05/07 for acute COPD exacerbation and was discharged home this morning. Patient was also treated for a UTI while in the hospital. The patient last had a nebulizer treatment this morning. Patient states that since discharge she went to [facility] for dinner and then returned to her van (which she lives in), when she began to wheeze and have difficulty breathing. The patient has an inhaler, which she does not like to use, and states that she cannot use it when she is panicked. She does not have a nebulizer, since she is currently living her car and would not be able to use. She also has an oxygen concentrator in her van, which plugs into her car battery source, but she did not want to run it today since it drains her battery /gasoline. Patient states that she is very anxious and becomes stressed out when she is unable to breathe well. She denies chest pain or fever. Nursing Notes Stated Complaint: SHORTNESS OF BREATH Chief Complaint: Respiratory Complaints Nursing Notes Reviewed: Yes Allergies: Coded Allergies: Penicillins (Verified Allergy, Unknown, 05/07/16) Sulfa (Sulfonamide Antibiotics) (Verified Allergy, Unknown, 05/07/16) Scheduled Fluticasone/Salmeterol (Advair 250-50 Diskus) 60 Puff/Inh Disk 1 PUFF IH BID Levofloxacin (Levaquin) 250 Mg Tablet 250 MG PO DAILY@1930 Scheduled PRN Albuterol HFA (Proair HFA) 8.5 Gm Hfa.aer.ad 2 PUFFS INHALATION Q4H PRN PRN For Shortness of Breath General Time Seen by MD: 23:06 Chief Complaint Shortness of breath Hx Obtained From: Patient Arrived By: Walk-in Sudden in Onset?: No Onset Occurred: 1 - 4 hours ago Severity: Current: No pain currently Severity: Maximum: No pain Recent Healthcare: Recent hospitalization Similar Sx Previous: Yes Past Medical History Past Medical History Notes: PCP: Dr. Ariana Miller Past Medical History chronic hip and back pain Pneumonia with hospitalization. Reports: Asthma, COPD, Hypertension Past Surgical History Stomach surgery. Right leg surgery. Family History non-contributory Smoking History Current Every Day Smoker, Heavy Tobacco Smoker Social History has been living in her van for ten years Alcohol Use: Denies alcohol use Drug Use: Denies drug use Other Social History: Homeless Ambulatory Status Walker Review of Systems Constitutional: Denies: Chills, Fever Respiratory: Reports: Shortness of breath, Wheezing Cardiovascular: Denies: Chest pain Complete sys rev & neg: except as marked. Psychiatric: Reports: Anxiety, Stress Physical Exam Initial Vital Signs Vital Signs (First) Date Time Temp Pulse Resp B/P Pulse Ox O2 Delivery O2 Flow Rate FiO2 05/07/16 23:06 36.4 114 60 153/118 87 Room Air 05/07/16 23:25 4 Initial VS: Reviewed Head / Eyes: Atraumatic, Normocephalic, PERRL Extremities: Vascular intact, Neuro intact Skin: Warm, Dry, No cyanosis Neurologic: Alert, Oriented, Nonfocal Psychiatric: Mood/affect normal, Behavior normal, Normal thought content General/Constitutional: Awake, Alert Behavior: Positive: Anxious, Tearful Appearance / Presentation: Positive: Obese Neck: Supple, Full range of motion Respiratory / Chest: No rales, No rhonchi Wheezing / Retractions: Positive: Wheeze insp/exp diffuse (tight) decreased air movement accessory muscles used, leaning forward Cardiovascular: Regular rhythm, Heart sounds NL Heart Rate / Rhythm: Positive: Tachycardia ENT: Airway patent Abdomen: Soft, Non-tender Interpretation & Diagnostics Lab Results Interpretation Result Diagram: 05/07/16 2328 05/07/16 2328 Test 05/07/16 23:28 White Blood Count 13.8th/mm3 (3.8-10.1) Red Blood Count 5.31mil/mm3 (3.90-5.20) Hemoglobin 16.2g/dL (12.0-15.6) Hematocrit 49.5% (35.0-46.0) Mean Corpuscular Volume 93.2fL (81-100) Mean Corpuscular Hemoglobin 30.5pg (27.0-35.0) Mean Corpuscular Hemoglobin Concent 32.7% (32.0-37.0) Red Cell Distribution Width 13.6% (12.3-15.4) Platelet Count 304bil/L (150-400) Neutrophils (%) (Auto) 60.1% (40-74) Lymphocytes (%) (Auto) 26.8% (14-46) Monocytes (%) (Auto) 11.7% (4-12) Eosinophils (%) (Auto) 0.4% (0-5) Basophils (%) (Auto) 0.1% (0-3) Sodium Level 141mEq/L (134-144) Potassium Level 3.6mEq/L (3.5-5.2) Chloride Level 98mEq/L (97-108) Carbon Dioxide Level 27mmol/L (18-29) Blood Urea Nitrogen 19mg/dL (8-27) Creatinine 0.77mg/dL (0.57-1.00) Estimat Glomerular Filtration Rate 104mL/min (>59) Glucose Level 102mg/dL (60-99) Calcium Level 8.5mg/dL (8.5-10.1) Magnesium Level 2.3mg/dL (1.6-2.6) Total Bilirubin 0.3mg/dL (0.0-1.2) Aspartate Amino Transf (AST/SGOT) 14U/L (0-50) Alanine Aminotransferase (ALT/SGPT) 18U/L (0-32) Alkaline Phosphatase 84U/L (25-165) Troponin T 0.010ug/L (0.0-0.011) Pro-B-Type Natriuretic Peptide 245.0pg/mL (0-738) Total Protein 6.5g/dL (6.4-8.4) Albumin 3.9g/dL (3.4-5.0) ECG Interpretation ECG Interpretation: Sinus rhythm, Rate 91 Left anterior fascicular block Time: 23:45 Interpreted by: ED physician Normal ECG Interpretation: No acute ischemic changes, No change from prior ECGs X-Ray Chest Interpretation Chest Xray Interpretation: Impression: Right lower lobe pneumonia. View: Portable Interpretation / Wet Read by: Wet read ED physician Reviewed Previous Films: Worse Re-Eval/Medical Decision Med Decision/Clinical Course 76-year-old female who presents with worsening shortness of breath. She lives in her van on [address] She has an oxygen concentrator but does not like to use it because it runs or battery downer runs her car out of gasoline. She is quite upset and anxious about her living situation. Several times she stated that she was dying and wishes she was . She denies being actively suicidal though. She was in the hospital here for respiratory problems and was just discharged this morning. Chest x-ray done in the hospital showed no infiltrate but today she shows a right lower lobe infiltrate. She is allergic to penicillin. She was given levofloxacin in the hospital. She was given IV doses of Zithromax and Rocephin here in the emergency room. I do not believe she will do well in her van but she does not want to be admitted. Her care will be turned over to Dr. Lorenzo. I recommend that she have [facility] for [facility]. Source of Hx: Old records Re-Evaluation/Progress #1: Time of Eval: 01:44 Patient Status: Condition improved Re-Evaluation/Progress Note: Rechecked the patient, who is now sleeping in the ED. The patient is improved but she needs another breathing treatment. Patient was informed that she was pneumonia on her x-ray. Patient states that "she is going to ". Patient was advised to be readmitted to the hospital. Patient understands and agrees with this plan. Re-Evaluation/Progress #2: Time of Eval: 02:05 Re-Evaluation/Progress Note: Patient no longer wishes to be admitted to the hospital, as she is afraid that she will be placed into a assisted. She will be treated for her pneumonia and re-evaluated. Re-Evaluation/Progress #3: Time of Eval: 05:42 Re-Evaluation/Progress Note: Patient is sleeping in the ED comfortably. Counseled Regarding: Diagnosis, Lab results, Need for admission Discharge & Departure Shift Change Sign-Out Patient Care Transferred: Yes Discussed Complaint(s): Yes Laboratory Evaluation: Lab evaluation discussed Imaging Studies: Imaging discussed Social work eval or possible hospital admission Impression: Primary Impression: Right lower lobe pneumonia Pneumonia type: due to unspecified organism Qualified Code: J18.9 - Pneumonia, unspecified organism Additional Impressions: COPD exacerbation Homelessness Disposition: ADMITTED TO HOSPITAL Discharge Condition All VS Reviewed: Yes Condition: Stable Referrals: Adam Lane MD (PCP) Care Transferred to: Dr. Lorenzo Care Transferred at: 06:00 Scribe Attestation Portions of this note were transcribed by Natalya Rodriguez. I, Dr. Littlejohn personally performed the history, physical exam and medical decision-making; I reviewed and confirmed the accuracy of the information in the transcribed note. Signed by: Alana Donohue, 05/07/2016 0544 copies to: Adam Lane MD, Howard L MD May 07, 2016 23:09 Natalya Rodriguez May 07, 2016 23:21
[2016-05-07] MEDS ORDERED: MethylprednisoLONE Sodium Succinate 62.5 mg/mL 2 mL Inj IVPUSH ONE (23:15)
[2016-05-07] MEDS ORDERED: Albuterol 2.5 mg/3 mL Inhalation Solution NEB ONE ×2 (23:15→23:55)
[2016-05-07] MEDS ORDERED: Albuterol-Ipratropium 3 mL Inhalation Solution NEB ONE (23:15)
[2016-05-07 23:25] VITALS: PULSE 102; RESP 28; O2SAT 95
[2016-05-07 23:40] LABS: BASOPHILS % (AUTO) 0.1 % (0-3); EOSINOPHILS % (AUTO) 0.4 % (0-5); MONOCYTES % (AUTO) 11.7 % (4-12); Mean Corpuscular Hemoglobin 30.5 pg (27.0-35.0); Mean Corpuscular Volume 93.2 fL (81-100); NEUTROPHILS % (AUTO) 60.1 % (40-74); Platelet Count 304 bil/L (150-400)
[2016-05-07 23:58] VITALS: PULSE 106; RESP 26; O2SAT 96
[2016-05-08] VITALS (8 sets, daily range): BP systolic 130–152; BP diastolic 76–101; PULSE 88–106; RESP 18–28; O2SAT 90–98
[2016-05-08 00:27] LABS: TROPONIN T 0.01 ug/L (0.0-0.011)
[2016-05-08 00:56] LABS: Magnesium 2.3 mg/dL (1.6-2.6)
[2016-05-08] MEDS ORDERED: Azithromycin Inj 500 MG in Dextrose 5% w/Vial Mate 250 ML IV ONE (03:20)
[2016-05-08] MEDS ORDERED: cefTRIAXone Inj 2,000 MG in Dextrose 5% Minibag Plus 50 ML IV ONE (03:20)
--- NOTE | 2016-05-08 09:28 | DRSVH ---
PROCEDURE: X-RAY CHEST ONE VIEW, PORTABLE ([id number]) INDICATIONS: COPD exac TECHNIQUE: One view of the chest was acquired. COMPARISON: [facility], CR, XR CHEST 2VW, 05/05/2016, 14:08. [facility], CR, XR CHEST 1VW (PORTABLE), 08/13/2015, 9:29. FINDINGS: Surgical changes and devices: None. Lungs and pleura: No pleural effusions or pneumothorax. Lungs are clear. Lung volumes are increase d with flattening of the hemidiaphragms suggesting COPD. Mediastinum: Mediastinal contours appear normal. Heart size is normal. Bones and chest wall: No suspicious bony lesions. Overlying soft tissues appear unremarkable. Mult iple healed left posterior lateral fractures. IMPRESSION: Lung volumes are increased suggesting COPD, correlate with pulmonary functions test. No definite acute cardiopulmonary process. Dictated by: Jeremy Schneider A Interpreted: Demi Alfredo MD on 05/08/2016 at 9:26 Transcribed by: CARLA on 05/08/2016 at 9:27 Approved by: Demi Alfredo MD, PhD on 05/08/2016 at 17:05
[2016-05-08] MEDS ORDERED: Albuterol-Ipratropium 3 mL Inhalation Solution NEB ONE (09:55)
[2016-05-08] MEDS ORDERED: PRE20 PO (11:41)
--- NOTE | 2016-05-08 12:13 | NUR ---
Social Work note Linda Kramer is a 76 yr old who came to ED with shortness of breath. CHIEF OF PRODUCTION met with pt - pt lives with a friend Lio in her van. She identifies that she has been living in her van for the past 10 years. Has O2 condenser from [employer] that she charges on the van battery. Pt has COPD - was recently admitted to the hospital and was discharged yesterday from hospital to return to her van. She uses a walker at baseline. She states she went to [employer] last night, felt short of breath and weak - came back to ED. Pt has income from social security - identifies that she gets $611 per month and has not sought out a home to rent. She states that she in the past has liked the independence of living in her van. She however admits that she is getting old and is "dying" from her COPD. CHIEF OF [employer]ODUCTION explored options for more care. 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 Pt states she does not want to loose her van or her income to pay for her care. Pt does not have a phone - CHIEF OF PRODUCTION provided information about a safe link phone and recommended that Pt follow up with community action to acquire one. CHIEF OF PRODUCTION provided hospital contact information - asked pt to call me back with contact numbers to explore Medicaid case management services to help with community resources, health literacy and advocacy services. CHIEF OF PRODUCTION explored next of kin - Pt states that she has no children, her only next of kin is her sister who lives in [place]. She states that she does not want to complete DPOA paperwork - states that she does not want her sister contacted at this time, but she said that she knows she is dying. CHIEF OF PRODUCTION provided community resources to [employer], provided support and education. Pt's friend Lio identifies that he is able to help pt as much as she will allow. He worries that she continues to smoke, that she is becoming more difficult to care for in her van and that she needs to make different choices - Pt and friend agree that she is stubborn and is not ready to make changes to how she is living. CHIEF OF PRODUCTION discussed with MD - Pt will d/c back to her van with friend with community follow up provided. HUGH Cox
== END 2016-05-08 12:17 | disposition home or self-care (01) ==
LOC: SED 23:00
DX: J18.9 Pneumonia, unspecified organism (principal); J44.1 Chronic obstructive pulmonary disease with (acute) exacerbation; J45.909 Unspecified asthma, uncomplicated; I10 Essential (primary) hypertension; F17.200 Nicotine dependence, unspecified, uncomplicated; Z59.0 Homelessness; Z87.01 Personal history of pneumonia (recurrent); Z87.440 Personal history of urinary (tract) infections; Z88.0 Allergy status to penicillin; Z88.2 Allergy status to sulfonamides
CPT/HCPCS: 36415; 71010; 80053; 83735; 83880; 84484; 85025; 90791; 93005; 94640; 94644; 94664; 96365; 96367; 96375; 99285; J0456; J0696; J2930; J7613; J7620

== ENCOUNTER 2016-06-01 09:34 | Emergency (ER) | payer MEDICARE, MEDICAID ==
[~2016-06-01] VITALS: Ht 157.5 cm; Wt 86.4 kg
[~2016-06-01 09:34] MED LIST changes: -AZIT250T4 PO
[2016-06-01 09:40] VITALS: BP 179/103; PULSE 106; RESP 22; O2SAT 94
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
[2016-06-01] MEDS ORDERED: PRE20 PO (10:34)
[2016-06-01] MEDS ORDERED: predniSONE 20 mg Tablet PO ONE (10:35)
== END 2016-06-01 11:06 | disposition home or self-care (01) ==
LOC: SED 09:34
DX: J45.901 Unspecified asthma with (acute) exacerbation (principal); R45.4 Irritability and anger; R45.89 Other symptoms and signs involving emotional state; I10 Essential (primary) hypertension; J44.9 Chronic obstructive pulmonary disease, unspecified; F17.200 Nicotine dependence, unspecified, uncomplicated; Z87.01 Personal history of pneumonia (recurrent); Z59.0 Homelessness; Z88.0 Allergy status to penicillin; Z88.2 Allergy status to sulfonamides

== ENCOUNTER 2016-06-03 11:30 | Emergency (ER) | payer MEDICARE, MEDICAID ==
[~2016-06-03] VITALS: Ht 162.6 cm; Wt 96.4 kg
[2016-06-03 11:35] VITALS: BP 148/90; PULSE 101; RESP 20; O2SAT 92
== END 2016-06-03 13:10 | disposition left against medical advice (07) ==
LOC: SED 11:30
DX: F99 Mental disorder, not otherwise specified (principal); Z53.21 Procedure and treatment not carried out due to patient leaving prior to being seen by health care provider

== ENCOUNTER 2016-06-09 08:35 | Emergency (ER) | payer MEDICARE, MEDICAID ==
[~2016-06-09] VITALS: Ht 162.6 cm; Wt 96.4 kg
[2016-06-09 08:43] VITALS: BP 140/83; PULSE 97; RESP 24; O2SAT 91
--- NOTE | 2016-06-09 08:55 | ED.REPORT ---
HPI-General Illness Date of Service Jun 09, 2016 ED Provider: MD Toi This is a 76 year old female with a history of COPD presenting to the emergency department via police due to medical and social concerns. Pt lives in her van, she was found in her vehicle by police sitting in feces. In the ED, she reports diffuse myalgias and states, worsening shortness of breath, and states she is out of prescribed prednisone. Associated symptoms include swelling, numbness, and "burning" in lower extremities that have been progressively worsening in the last 2 weeks and causing difficulty ambulating. Denies fever, chills, headache, nausea, vomiting, diarrhea, constipation, or dysuria at this time. Nursing Notes Stated Complaint: PSYCH Chief Complaint: General Complaint Nursing Notes Reviewed: Yes Allergies: Coded Allergies: Penicillins (Verified Allergy, Unknown, 06/09/16) Sulfa (Sulfonamide Antibiotics) (Verified Allergy, Unknown, 06/09/16) Scheduled Azithromycin (Azithromycin) 200 Mg/5 Ml Susp.recon 250 MG PO DAILY Fluticasone/Salmeterol (Advair 250-50 Diskus) 60 Puff/Inh Disk 1 PUFF IH BID Levofloxacin (Levaquin) 250 Mg Tablet 250 MG PO DAILY@1930 Prednisone (PredniSONE) 20 Mg Tablet 20 MG PO DAILY 2 pills (40mg) 05/08 and 05/09 1 pill (20mg) 05/10 and 05/11 1/2 pill (10mg) 05/12 and 05/13 Prednisone (PredniSONE) 20 Mg Tablet 40 MG PO DAILY Prednisone (PredniSONE) 20 Mg Tablet 40 MG PO DAILY Scheduled PRN Albuterol HFA (Proair HFA) 8.5 Gm Hfa.aer.ad 2 PUFFS INHALATION Q4H PRN PRN For Shortness of Breath General Time Seen by MD: 08:55 Chief Complaint Other Hx Obtained From: Patient Arrived By: Police Sudden in Onset?: Yes Symptom Duration: Since onset Severity: Current: No pain currently Pertinent Negative: Pt denies other symptoms Recent Healthcare: No recent doctor visit, No recent hospitalization Similar Sx Previous: No Past Medical History Past Medical History Notes: PCP: Dr. Ariana Miller Past Medical History chronic hip and back pain Pneumonia with hospitalization. Reports: Asthma, COPD, Hypertension Past Surgical History Stomach surgery. Right leg surgery. Family History non-contributory Smoking History Current Every Day Smoker, Heavy Tobacco Smoker Social History has been living in her van for ten years Alcohol Use: Denies alcohol use Drug Use: Denies drug use Other Social History: Homeless Ambulatory Status Walker Review of Systems Full Review of Systems Constitutional: Denies: Chills, Fever Respiratory: Denies: Non-productive cough, Shortness of breath GI: Denies: Abdominal pain, Constipation, Diarrhea, Nausea, Vomiting Neurologic: Reports: Numbness, Problem walking, Weakness, Denies: Headache Complete sys rev & neg: except as marked. Physical Exam Vital Signs Vital Signs Date Time Temp Pulse Resp B/P Pulse Ox O2 Delivery O2 Flow Rate FiO2 06/09/16 11:59 36.6 75 20 90 Room Air 06/09/16 08:43 37 97 24 140/83 91 Room Air Initial VS: Reviewed, Vital signs abnormal Head / Eyes: Atraumatic, Normocephalic, PERRL ENT: Mucous membranes moist, Conjunctiva normal, No scleral icterus Neck: Supple, Non-tender, Full range of motion Cardiovascular: Regular rate & rhythm, Heart sounds normal, Intact distal pulses Abdomen / GI: Soft, Non-tender, No guarding, No rebound, No distention Skin: Warm, Dry, No cyanosis Neurologic: Alert, Oriented, Nonfocal General/Constitutional: Awake, Alert Diminished Breath Sounds: Positive: Decreased bilateral Wheezing / Retractions: Positive: Wheezing expiratory Lower Extremity / Pelvis / MS: Vascular intact Erythema to bilateral inner thighs, increased warmth and mild tenderness to L thigh. Pitting edema to bilateral lower extremities with tendernesss. Interpretation & Diagnostics X-Ray Chest Interpretation Chest Xray Interpretation: IMPRESSION: Bilateral basilar pulmonary radiopacities. Differential considerations include infection, aspiration, atelectasis. Dictated by: Ariana Rabago M.D. on 06/09/2016 at 10:29 Approved by: Ariana Rabago M.D. on 06/09/2016 at 10:30 US Focused Lower Ext Venous IMPRESSION: Limited study. No deep vein thrombosis of the bilateral lower extremities. Dictated by: Ariana Rabago M.D. on 06/09/2016 at 11:11 Approved by: Ariana Rabago M.D. on 06/09/2016 at 11:12 Re-Eval/Medical Decision Med Decision/Clinical Course The patient came in with multiple complaints but it seems she mostly wanted to shower and feet. She declined most of the testing but did accept chest x-ray and ultrasound. She was treated for pneumonia and cellulitis was given medications for COPD exacerbation however she declined most of his medications as well. The patient did not wish to be admitted to the hospital she wanted to go home. Time of Eval: 10:14 Re-Evaluation/Progress Note: Patient is refusing blood tests, medications, and breathing treatment, would like to be discharged. Counseled Regarding: Diagnosis, Need for follow-up Discharge & Departure Primary Impression: Pneumonia Pneumonia type: due to unspecified organism Laterality: bilateral Lung location: lower lobe of lung Qualified Code: J18.9 - Pneumonia, unspecified organism Additional Impression: Cellulitis Site of cellulitis: extremity Site of cellulitis of extremity: lower extremity Laterality: unspecified laterality Qualified Code: L03.119 - Cellulitis of unspecified part of limb Disposition: Home Discharge Condition All VS Reviewed: Yes Condition: Stable Patient Instructions: Bacterial Pneumonia (ED), Cellulitis (ED) Additional Instructions: Your chest x-ray indicates that you have pneumonia. Take azithromycin as prescribed. Be sure to keep your legs elevated as much as possible. Follow up with your primary care provider. Seek care for any new or worsening symptoms. Referrals: Adam Lane MD (PCP) Scribe Attestation Portions of this note were transcribed by Mateo Peter. I, Dr. Cunningham personally performed the history, physical exam and medical decision-making; I reviewed and confirmed the accuracy of the information in the transcribed note. Signed by: sky Armendariz. 06/09/2016, 15:00. Bre Cunningham MD Jun 09, 2016 08:55 MATEO PETER Jun 09, 2016 09:01
[2016-06-09] MEDS ORDERED: Albuterol-Ipratropium 3 mL Inhalation Solution NEB ONE (10:00)
[2016-06-09] MEDS ORDERED: 0.9% Sodium Chloride 1,000 ML IV ONE (10:00)
[2016-06-09] MEDS ORDERED: predniSONE 20 mg Tablet PO ONE (10:00)
--- NOTE | 2016-06-09 10:32 | DRSVH ---
PROCEDURE: X-RAY CHEST, TWO VIEWS ([id number]) INDICATIONS: short of breath TECHNIQUE: 2 views of the chest were acquired. COMPARISON: [facility], CR, XR CHEST 1VW (PORTABLE), 05/07/2016, 23:18. FINDINGS: Surgical changes and devices: None. Lungs and pleura: Patchy pulmonary opacities are present at the bilateral lung bases which are new wh en compared with the study dated 05/07/16. No pleural effusion or pneumothorax. Mediastinum: Mediastinal contours are normal. Heart size is normal. Bones and chest wall: No suspicious bony abnormalities. Soft tissues appear unremarkable. IMPRESSION: Bilateral basilar pulmonary radiopacities. Differential considerations include infection, aspiration, atelectasis. Dictated by: Ariana Rabago M.D. on 06/09/2016 at 10:29 Approved by: Ariana Rabago M.D. on 06/09/2016 at 10:30
--- NOTE | 2016-06-09 11:14 | DRSVH ---
PROCEDURE: US VENOUS LEG DUPLEX BILATERAL INDICATIONS: swollen painful legs TECHNIQUE: Real-time imaging, as well as color and pulse Doppler interrogation, were performed of the deep veins of both legs from the inguinal ligament to the popliteal fossa. COMPARISON: None. FINDINGS: The study is limited by patient body habitus. The deep veins appear free of intraluminal t hrombus. The patient did not tolerate compression. Color and pulse Doppler demonstrate normal phasic intravascular flow. IMPRESSION: Limited study. No deep vein thrombosis of the bilateral lower extremities. Dictated by: Ariana Rabago M.D. on 06/09/2016 at 11:11 Approved by: Ariana Rabago M.D. on 06/09/2016 at 11:12
[2016-06-09] MEDS ORDERED: PRE20 PO (11:54)
[2016-06-09] MEDS ORDERED: AZIT200S47 PO (11:54)
[2016-06-09 11:59] VITALS: PULSE 75; RESP 20; O2SAT 90
[2016-06-10] MEDS ORDERED: PRE20 PO (11:26)
[2016-06-10] MEDS ORDERED: AZIT500T5 PO (11:26)
== END 2016-06-09 11:14 | disposition home or self-care (01) ==
LOC: SED 08:35
DX: J18.9 Pneumonia, unspecified organism (principal); L03.119 Cellulitis of unspecified part of limb; I10 Essential (primary) hypertension; F17.200 Nicotine dependence, unspecified, uncomplicated; Z88.0 Allergy status to penicillin; Z88.2 Allergy status to sulfonamides

== ENCOUNTER 2016-06-10 08:03 | Emergency (ER) | payer MEDICARE, MEDICAID ==
[~2016-06-10 08:03] MED LIST changes: +AZIT200S47 PO
[2016-06-10 08:08] VITALS: BP 132/87; PULSE 72; RESP 18; O2SAT 95
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
[2016-06-10] MEDS ORDERED: predniSONE 20 mg Tablet PO ONE (08:50)
[2016-06-10] MEDS ORDERED: Albuterol 2.5 mg/3 mL Inhalation Solution NEB ONE (08:50)
[2016-06-10 09:32] VITALS: PULSE 80; RESP 20; O2SAT 90
[2016-06-10] MEDS ORDERED: AZIT500T5 PO (11:26)
[2016-06-10] MEDS ORDERED: PRE20 PO (11:26)
== END 2016-06-10 11:25 ==
LOC: SED 08:03
DX: J44.1 Chronic obstructive pulmonary disease with (acute) exacerbation (principal); J18.9 Pneumonia, unspecified organism; T23.232A Burn of second degree of multiple left fingers (nail), not including thumb, initial encounter; X08.8XXA Exposure to other specified smoke, fire and flames, initial encounter; Z59.0 Homelessness; Y93.9 Activity, unspecified; Y92.818 Other transport vehicle as the place of occurrence of the external cause; Y99.8 Other external cause status; J45.909 Unspecified asthma, uncomplicated; I10 Essential (primary) hypertension; F17.200 Nicotine dependence, unspecified, uncomplicated; Z88.0 Allergy status to penicillin; Z88.2 Allergy status to sulfonamides
CPT/HCPCS: 94664; 99283; J7613

== ENCOUNTER 2016-06-13 16:32 | Emergency (ER) | payer MEDICARE, MEDICAID ==
[~2016-06-13 16:32] MED LIST changes: +AZIT500T5 PO
[2016-06-13 17:14] VITALS: BP 118/81; PULSE 102; RESP 16; O2SAT 91
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
[2016-06-13 21:36] LABS: BASOPHILS % (AUTO) 0.2 % (0-3); EOSINOPHILS % (AUTO) 1.2 % (0-5); MONOCYTES % (AUTO) 8.4 % (4-12); Mean Corpuscular Hemoglobin 30.4 pg (27.0-35.0); Mean Corpuscular Volume 94.5 fL (81-100); NEUTROPHILS % (AUTO) 61.5 % (40-74); Platelet Count 208 bil/L (150-400)
[2016-06-13] MEDS ORDERED: levoFLOXacin 750 mg Tablet PO ONE (23:10)
[2016-06-13] MEDS ORDERED: predniSONE 20 mg Tablet PO ONE (23:10)
[2016-06-13] MEDS ORDERED: TdaP Vaccine 0.5 mL Inj IM ONE (23:20)
== END 2016-06-14 01:31 | disposition home or self-care (01) ==
LOC: SED 16:32
DX: R19.7 Diarrhea, unspecified (principal); T23.202D Burn of second degree of left hand, unspecified site, subsequent encounter; X19.XXXD Contact with other heat and hot substances, subsequent encounter; Y93.89 Activity, other specified; Y99.8 Other external cause status; Y92.9 Unspecified place or not applicable; J45.909 Unspecified asthma, uncomplicated; I10 Essential (primary) hypertension; F17.200 Nicotine dependence, unspecified, uncomplicated; Z23 Encounter for immunization; Z59.0 Homelessness; Z79.51 Long term (current) use of inhaled steroids; Z79.52 Long term (current) use of systemic steroids; Z88.0 Allergy status to penicillin; Z88.2 Allergy status to sulfonamides

== ENCOUNTER 2016-06-14 18:35 | Emergency (ER) | payer MEDICARE, MEDICAID ==
[~2016-06-14] VITALS: Ht 162.6 cm; Wt 95.5 kg
[2016-06-14 18:43] VITALS: BP 145/94; PULSE 104; RESP 20; O2SAT 91
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
== END 2016-06-14 21:07 | disposition home or self-care (01) ==
LOC: SED 18:35
DX: T23.201A Burn of second degree of right hand, unspecified site, initial encounter (principal); T31.0 Burns involving less than 10% of body surface; X58.XXXA Exposure to other specified factors, initial encounter; Y92.810 Car as the place of occurrence of the external cause; Y93.9 Activity, unspecified; Y99.9 Unspecified external cause status; J44.9 Chronic obstructive pulmonary disease, unspecified; J45.909 Unspecified asthma, uncomplicated; I10 Essential (primary) hypertension; F17.200 Nicotine dependence, unspecified, uncomplicated; Z48.00 Encounter for change or removal of nonsurgical wound dressing; Z59.0 Homelessness; Z88.0 Allergy status to penicillin; Z88.2 Allergy status to sulfonamides

== ENCOUNTER 2016-06-15 13:46 | Emergency (ER) | payer MEDICARE, MEDICAID ==
[~2016-06-15] VITALS: Ht 162.6 cm; Wt 96.4 kg
[2016-06-15 13:49] VITALS: BP 13/95; PULSE 94; RESP 26; O2SAT 90
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
== END 2016-06-15 14:57 | disposition home or self-care (01) ==
LOC: SED 13:46
DX: T23.002D Burn of unspecified degree of left hand, unspecified site, subsequent encounter (principal); I10 Essential (primary) hypertension; J45.909 Unspecified asthma, uncomplicated; F17.200 Nicotine dependence, unspecified, uncomplicated; Z88.0 Allergy status to penicillin; Z88.2 Allergy status to sulfonamides

== ENCOUNTER 2016-06-16 20:24 | Emergency (ER) | payer MEDICARE, MEDICAID ==
[~2016-06-16] VITALS: Ht 162.6 cm; Wt 93.2 kg
[~2016-06-16 20:24] MED LIST changes: -ADV250INH IH; -AZIT200S47 PO; -AZIT500T5 PO; -LVF250T PO; -PRE20 PO
[2016-06-16] MEDS ORDERED: Albuterol 2.5 mg/3 mL Inhalation Solution NEB ONE (20:40)
[2016-06-16] MEDS ORDERED: Albuterol-Ipratropium 3 mL Inhalation Solution ONE ×2 (20:41)
[2016-06-16 20:45] VITALS: BP 130/83; PULSE 104; RESP 32; O2SAT 86
[2016-06-16 21:21] VITALS: PULSE 105; RESP 44; O2SAT 93
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
== END 2016-06-16 22:00 | disposition home or self-care (01) ==
LOC: SED 20:24
DX: J44.1 Chronic obstructive pulmonary disease with (acute) exacerbation (principal); T23.202D Burn of second degree of left hand, unspecified site, subsequent encounter; X19.XXXD Contact with other heat and hot substances, subsequent encounter; Y93.9 Activity, unspecified; Y99.8 Other external cause status; Y92.9 Unspecified place or not applicable; I10 Essential (primary) hypertension; G89.29 Other chronic pain; F17.200 Nicotine dependence, unspecified, uncomplicated; Z59.0 Homelessness; Z79.51 Long term (current) use of inhaled steroids; Z88.0 Allergy status to penicillin; Z88.2 Allergy status to sulfonamides
CPT/HCPCS: 99283; J7620

== ENCOUNTER 2016-06-18 12:20 | Emergency (ER) | payer MEDICARE, MEDICAID ==
[~2016-06-18] VITALS: Ht 162.6 cm; Wt 97.7 kg
[2016-06-18 12:30] VITALS: BP 149/88; PULSE 102; RESP 22; O2SAT 87
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
[2016-06-18] MEDS ORDERED: Albuterol-Ipratropium 3 mL Inhalation Solution ONE (14:45)
== END 2016-06-18 17:59 | disposition home or self-care (01) ==
LOC: EDUNIT# 12:20 → SED 12:20 → EDBD 12:20 → SED 17:59
DX: R15.9 Full incontinence of feces (principal); T23.202D Burn of second degree of left hand, unspecified site, subsequent encounter; X19.XXXD Contact with other heat and hot substances, subsequent encounter; Y93.9 Activity, unspecified; Y99.8 Other external cause status; Y92.9 Unspecified place or not applicable; Z59.0 Homelessness; I10 Essential (primary) hypertension; J44.9 Chronic obstructive pulmonary disease, unspecified; F17.200 Nicotine dependence, unspecified, uncomplicated; Z79.51 Long term (current) use of inhaled steroids; Z88.0 Allergy status to penicillin; Z88.2 Allergy status to sulfonamides
CPT/HCPCS: 99283; J7620

== ENCOUNTER 2016-06-19 10:27 | Emergency (ER) | payer MEDICARE, MEDICAID ==
[~2016-06-19] VITALS: Ht 162.6 cm; Wt 93.2 kg
[2016-06-19 10:32] VITALS: BP 124/84; PULSE 114; RESP 60; O2SAT 87
[2016-06-19] MEDS ORDERED: Albuterol-Ipratropium 3 mL Inhalation Solution NEB ONE (10:35)
[2016-06-19] MEDS ORDERED: Albuterol 2.5 mg/3 mL Inhalation Solution NEB ONE (10:35)
--- NOTE | 2016-06-19 10:35 | ED.REPORT ---
HPI-Dyspnea / Wheezing Date of Service Jun 19, 2016 ED Provider: The patient is a 76 year old female with history of hypertension, COPD, and pneumonia, who presents to the emergency department complaining of lower extremity swelling and shortness of breath The patient was seen here yesterday for diarrhea and was discharged home and directed to followup with her primary care provider. She still complains of diarrhea today. She is currently living in her van and does not have easy access to a restroom. Nursing Notes Stated Complaint: SWOLLEN FEET/DIFFICULTY BREATHING Chief Complaint: Respiratory Complaints Nursing Notes Reviewed: Yes Allergies: Coded Allergies: Penicillins (Verified Allergy, Unknown, 06/15/16) Sulfa (Sulfonamide Antibiotics) (Verified Allergy, Unknown, 06/15/16) Scheduled PRN Albuterol HFA (Proair HFA) 8.5 Gm Hfa.aer.ad 2 PUFFS INHALATION Q4H PRN PRN For Shortness of Breath General Time Seen by MD: 10:34 Chief Complaint Shortness of breath, Other (extremity swelling) Hx Obtained From: Patient Arrived By: Wheelchair Sudden in Onset?: No Onset Occurred: Yesterday Symptom Duration: Since onset Location: : None Severity: Current: No pain currently Severity: Maximum: No pain Recent Healthcare: No recent hospitalization, Recent doctor visit Similar Sx Previous: Yes Past Medical History Past Medical History Notes: PCP: Dr. Ariana Miller Past Medical History Chronic hip and back pain Pneumonia with hospitalization Reports: Asthma, COPD, Hypertension Past Surgical History Stomach surgery. Right leg surgery. Family History non-contributory Smoking History Current Every Day Smoker, Heavy Tobacco Smoker Social History Living in her van for past ten years Alcohol Use: Denies alcohol use Drug Use: Denies drug use Other Social History: Homeless Ambulatory Status Wheelchair Review of Systems Respiratory: Reports: Shortness of breath Musculoskeletal: Reports: Extremity swelling Complete sys rev & neg: except as marked. GI: Reports: Diarrhea Physical Exam Initial Vital Signs Vital Signs (First) Date Time Temp Pulse Resp B/P Pulse Ox O2 Delivery O2 Flow Rate FiO2 06/19/16 10:32 37.2 114 60 124/84 87 Room Air 06/19/16 11:26 2 Initial VS: Reviewed Head / Eyes: Atraumatic, Normocephalic, PERRL ENT: Mucous membranes moist, Conjunctiva normal, No scleral icterus Abdomen / GI: Soft, Non-tender, No guarding, No rebound, No distention Lymphatic: No lymphadenopathy Extremities: Vascular intact, Neuro intact, No swelling, No tenderness Skin: Warm, Dry, No cyanosis Neurologic: Alert, Oriented, Nonfocal Psychiatric: Mood/affect normal, Behavior normal, Normal thought content General/Constitutional: Awake, Alert Smells strongly of stool Neck: Atraumatic, Supple, No meningismus, Full range of motion, No swelling, Non-tender, No masses Respiratory / Chest: Breath sounds = bilat, No respiratory distress Wheezing / Retractions: Positive: Wheezing moderate Cardiovascular: Heart rate NL, Regular rhythm, Heart sounds NL, No murmurs, No rubs Lower Ext Edema: Positive: Ankle, Bilateral 3+, Knee, Pitting Interpretation & Diagnostics Lab Results Interpretation Result Diagram: 06/19/16 1135 06/19/16 1135 Test 06/19/16 11:35 White Blood Count 8.3th/mm3 (3.8-10.1) Red Blood Count 5.34mil/mm3 (3.90-5.20) Hemoglobin 16.1g/dL (12.0-15.6) Hematocrit 50.4% (35.0-46.0) Mean Corpuscular Volume 94.4fL (81-100) Mean Corpuscular Hemoglobin 30.1pg (27.0-35.0) Mean Corpuscular Hemoglobin Concent 31.9% (32.0-37.0) Red Cell Distribution Width 13.9% (12.3-15.4) Platelet Count 186bil/L (150-400) Neutrophils (%) (Auto) 61.3% (40-74) Lymphocytes (%) (Auto) 23.0% (14-46) Monocytes (%) (Auto) 10.7% (4-12) Eosinophils (%) (Auto) 4.0% (0-5) Basophils (%) (Auto) 0.5% (0-3) Sodium Level 142mEq/L (134-144) Potassium Level 4.3mEq/L (3.5-5.2) Chloride Level 99mEq/L (97-108) Carbon Dioxide Level 28mmol/L (18-29) Blood Urea Nitrogen 11mg/dL (8-27) Creatinine 0.55mg/dL (0.57-1.00) Estimat Glomerular Filtration Rate 154mL/min (>59) Glucose Level 113mg/dL (60-99) Calcium Level 8.8mg/dL (8.5-10.1) Total Bilirubin 0.5mg/dL (0.0-1.2) Aspartate Amino Transf (AST/SGOT) 21U/L (0-50) Alanine Aminotransferase (ALT/SGPT) 30U/L (0-32) Alkaline Phosphatase 75U/L (25-165) Pro-B-Type Natriuretic Peptide 140.1pg/mL (0-738) Total Protein 5.9g/dL (6.4-8.4) Albumin 3.6g/dL (3.4-5.0) Re-Eval/Medical Decision Source of Hx: Old records Re-Evaluation/Progress : Time of Eval: 13:00 Re-Evaluation/Progress Note: Rechecked the patient. Discussed results, diagnosis, and plan for discharge. All questions were addressed. Counseled Regarding: Diagnosis, Lab results, Need for follow-up, When/why to return to ED Discharge & Departure Impression: Primary Impression: Diarrhea Additional Impression: Leg edema Laterality: bilateral Qualified Code: R60.0 - Localized edema Disposition: Home Discharge Condition All VS Reviewed: Yes Condition: Stable Patient Instructions: Leg Edema (ED) Additional Instructions: Thank you for entrusting us with your care today. Your workup is reassuring. I recommend elevating your feet to help with the swelling. Followup with your regular doctor in the next few days. Return to the emergency department for any new or concerning symptoms. Referrals: Adam Lane MD (PCP) Scribe Attestation Portions of this note were transcribed by Anabell Alva. I, Dr. Cm personally performed the history, physical exam and medical decision-making; I reviewed and confirmed the accuracy of the information in the transcribed note. Signed by: Alana Tapia, 06/19/2016 at 1305. copies to: Adam Lane MD, Kirk H MD Jun 19, 2016 10:35 Anabell Alva Jun 19, 2016 10:42
[2016-06-19 11:20] VITALS: PULSE 107; O2SAT 80
[2016-06-19 11:26] VITALS: PULSE 102; O2SAT 94
[2016-06-19 11:47] LABS: BASOPHILS % (AUTO) 0.5 % (0-3); MONOCYTES % (AUTO) 10.7 % (4-12); Mean Corpuscular Hemoglobin 30.1 pg (27.0-35.0); Mean Corpuscular Volume 94.4 fL (81-100); NEUTROPHILS % (AUTO) 61.3 % (40-74); Platelet Count 186 bil/L (150-400)
--- NOTE | 2016-06-19 12:57 | DRSVH ---
PROCEDURE: X-RAY CHEST ONE VIEW, PORTABLE ([id number]) INDICATIONS: dyspnea TECHNIQUE: One view of the chest was acquired. COMPARISON: [facility], CR, XR CHEST 1VW (PORTABLE), 06/13/2016, 20:50. FINDINGS: Surgical changes and devices: None. Lungs and pleura: No pleural effusions or pneumothorax. Interstitium is prominent and there is scar ring in the left lung base. Mediastinum: Mediastinal contours appear normal. Heart size is normal. Bones and chest wall: No suspicious bony lesions. Overlying soft tissues appear unremarkable. Corazon ral healed left inferior posterior lateral rib fractures redemonstrated. IMPRESSION: No definite acute cardiopulmonary process. Dictated by: Jeremy Schneider RRA Interpreted: Desiree Cervantes MD on 06/19/2016 at 12:56 Transcribed by: LAURA on 06/19/2016 at 12:57 Approved by: Desiree Cervantes M.D. on 06/19/2016 at 13:37
[2016-06-19 13:32] VITALS: RESP 28; O2SAT 94
== END 2016-06-19 13:33 | disposition home or self-care (01) ==
LOC: SED 10:27
DX: R19.7 Diarrhea, unspecified (principal); R60.0 Localized edema; I10 Essential (primary) hypertension; J44.9 Chronic obstructive pulmonary disease, unspecified; J45.909 Unspecified asthma, uncomplicated; F17.200 Nicotine dependence, unspecified, uncomplicated; Z88.0 Allergy status to penicillin; Z88.2 Allergy status to sulfonamides
CPT/HCPCS: 36415; 71010; 80053; 83880; 85025; 99284; J7613

== ENCOUNTER 2016-06-20 05:09 | Inpatient (IN) | payer MEDICARE, MEDICAID ==
[~2016-06-20] VITALS: Ht 162.6 cm; Wt 96.6 kg
[2016-06-20] VITALS (12 sets, daily range): BP systolic 108–143; BP diastolic 49–77; PULSE 86–108; RESP 17–38; O2SAT 86–97
--- NOTE | 2016-06-20 05:16 | ED.REPORT ---
HPI-Dyspnea / Wheezing Date of Service Jun 20, 2016 ED Provider: Fritz Littlejohn MD The patient is a 76 year old female with history of hypertension, COPD, and pneumonia, who presents to the emergency department complaining of SOB and cough. The patient was seen here yesterday for similar symptoms and was discharged home and directed to followup with her primary care provider. She reports that she, "just can't breathe." She has also had diarrhea all week. Pt lives in her van and does not have easy access to a restroom. Pt has presciprtion for oxygen at home but has not picked up O2 tank. She requests Prednisone. Nursing Notes Stated Complaint: DIFFICULTY BREATHING Chief Complaint: Respiratory Complaints Nursing Notes Reviewed: Yes Allergies: Coded Allergies: Penicillins (Verified Allergy, Unknown, 06/20/16) Sulfa (Sulfonamide Antibiotics) (Verified Allergy, Unknown, 06/20/16) Scheduled PRN Albuterol HFA (Proair HFA) 8.5 Gm Hfa.aer.ad 2 PUFFS INHALATION Q4H PRN PRN For Shortness of Breath General Time Seen by MD: 05:15 Chief Complaint Shortness of breath Hx Obtained From: Patient Arrived By: Walk-in Caused by: Spontaneous Sudden in Onset?: Yes Onset Occurred: Just prior to arrival Symptom Duration: Since onset Recent Healthcare: Recent doctor visit Similar Sx Previous: Yes Past Medical History Past Medical History Notes: PCP: Dr. Ariana Miller Past Medical History Chronic hip and back pain Pneumonia with hospitalization Reports: Asthma, COPD, Hypertension Past Surgical History Stomach surgery. Right leg surgery. Family History non-contributory Smoking History Current Every Day Smoker, Heavy Tobacco Smoker Social History Living in her van for past ten years Alcohol Use: Denies alcohol use Drug Use: Denies drug use Other Social History: Homeless Ambulatory Status Wheelchair Review of Systems Respiratory: Reports: Shortness of breath Complete sys rev & neg: except as marked. GI: Reports: Diarrhea Physical Exam Initial Vital Signs Vital Signs (First) Date Time Temp Pulse Resp B/P Pulse Ox O2 Delivery O2 Flow Rate FiO2 06/20/16 05:12 36.3 96 22 143/76 92 Room Air Initial VS: Reviewed, Vital signs normal Head / Eyes: Atraumatic, Normocephalic, PERRL ENT: Mucous membranes moist, Conjunctiva normal Abdomen / GI: Soft, Non-tender Extremities: Vascular intact, No swelling Skin: Warm, Dry Neurologic: Alert General/Constitutional: Awake, Alert Neck: Atraumatic, Supple Wheezing / Retractions: Positive: Wheezing expiratory Cardiovascular: Regular rhythm, Heart sounds NL Heart Rate / Rhythm: Positive: Tachycardia Re-Eval/Medical Decision Med Decision/Clinical Course 76-year-old female with a history of asthma presents with acute exacerbation. Workup was initiated to include labs and a chest x-ray and she was given prednisone and continuous nebulizer treatment for 1 hour. Her care will be turned over to Dr. Lakhani at change of shift. Counseled Regarding: Diagnosis, Lab results, Need for follow-up, When/why to return to ED Discharge & Departure Impression: Primary Impression: COPD with acute exacerbation Referrals: Adam Lane MD (PCP) Scribe Attestation Portion of this note were transcribed by Marcela Cuba. I, Dr. Litltejohn, personally performed the history, physical exam, and medical decision-making: I reviewed and confirmed the accuracy for the information in the transcribed note. Signed by: sky Mckee, 06/20/16 0600 copies to: Adam Lane MD, Howard L MD Jun 20, 2016 05:16 Marcela Cuba Jun 20, 2016 05:26
[2016-06-20] MEDS ORDERED: predniSONE 20 mg Tablet PO ONE (05:30)
[2016-06-20] MEDS ORDERED: Albuterol-Ipratropium 3 mL Inhalation Solution NEB ONE (05:30)
[2016-06-20] MEDS ORDERED: Albuterol 2.5 mg/3 mL Inhalation Solution NEB ONE (05:30)
[2016-06-20] MEDS ORDERED: Ondansetron 8 mg ODT Tablet PO ONE (06:00)
[2016-06-20 06:13] LABS: BASOPHILS % (AUTO) 0.4 % (0-3); MONOCYTES % (AUTO) 11.1 % (4-12); Mean Corpuscular Hemoglobin 30.2 pg (27.0-35.0); Mean Corpuscular Volume 94.9 fL (81-100); Platelet Count 194 bil/L (150-400)
[2016-06-20] MEDS ORDERED: _Albuterol-HFA 60 Puff Inhaler INHALATION PRN (06:30)
[2016-06-20 06:49] LABS: TROPONIN T 0.01 ug/L (0.0-0.011)
[2016-06-20] MEDS ORDERED: Ondansetron 2 mg/mL 2 mL Inj IVPUSH ONE (08:10)
--- NOTE | 2016-06-20 09:36 | DRSVH ---
PROCEDURE: X-RAY CHEST ONE VIEW, PORTABLE ([id number]) INDICATIONS: dyspnea TECHNIQUE: One view of the chest was acquired. COMPARISON: [facility], CR, XR CHEST 1VW (PORTABLE), 06/19/2016, 12:29. FINDINGS: Surgical changes and devices: None. Lungs and pleura: No pleural effusions or pneumothorax. Lungs are clear. Interstitium is prominent . Mediastinum: Mediastinal contours appear normal. Heart size is normal. Bones and chest wall: No suspicious bony lesions. Overlying soft tissues appear unremarkable. IMPRESSION: Prominent interstitium. Mild developing edema cannot be excluded. Correlate clinically. Dictated by: Jeremy Schneider RRA Interpreted: Demi Alfredo MD on 06/20/2016 at 9:36 Transcribed by: CARLA on 06/20/2016 at 9:36 Approved by: Demi Alfredo MD, PhD on 06/20/2016 at 16:50
--- NOTE | 2016-06-20 11:04 | NUR ---
Admit nurse: Homeless pt, reports that she lives in her car. Admit completed, allergy sticker placed, med rec completed.
--- NOTE | 2016-06-20 13:10 | NUR ---
[place] [facility] report called [place] [facility] from [place]. Patient arrived to room 303o via gurney and assisted to bed. Patient had incontinent diarrhea and was cleaned up. Patient had complaints of 5/10 pain to lower extremities due to edema. Patient oriented to room, staff, call light, bed controls, and visiting hours. Echo is waiting outside of room to perform Echo on patient.
--- NOTE | 2016-06-20 14:41 | DRSVH ---
[facility] [address] [place] [address] Echocardiogram Report Name: GINNY SHIN CStudy Date: 06/20/2016 Height: 64 in Hospital Exam Location: [facility] Weight: 210 lb Gender: Female BSA: 2.0 m2 : 1940 Age: 76 yrs BP: 110/49 mmHg Reason For Study: SOB, EDEMA History: COPD,HTN,SMOKER-CURRENT Ordering Physician: DR. Elton VICENTE Performed By: Connie Núñez Referring Physician: Dr. Adam Lane Interpretation Summary Left ventricular systolic function is normal without focal wall motion abnormalities with the ejection fraction visually estimated to be 60-65%. There is moderate concentric left ventricular hypertrophy with diastolic parameters suggesting a relaxation abnormality of the left ventricle, consistent with normal filling pressures. The right ventricle grossly appears normal in size with probable normal systolic function. Pulmonary artery pressures cannot be estimated because of the lack of a measurable TR jet velocity but the IVC suggests a low right atrial pressure of 3 mm Hg. Both atria are normal in size. There is no significant valvular heart disease. The ascending aorta is at the upper limits of normal in size. Procedure: A two-dimensional transthoracic echocardiogram with color flow and Doppler was performed. The study quality was technically adequate. There is no prior echocardiogram noted for this patient. The patient was in normal sinus rhythm during the exam. Left Ventricle: The left ventricle is normal in size. There is moderate concentric left ventricular hypertrophy. Left ventricular systolic function is normal without focal wall motion abnormalities. The ejection fraction is estimated to be 60-65%. Assessment of diastolic parameters indicates a relaxation abnormality of the left ventricle, consistent with normal filling pressures. Right Ventricle: The right ventricle grossly appears normal in size with probable normal systolic function. Atria: Both atria are normal in size. The interatrial septum is intact with no evidence for an atrial septal defect. There is no Doppler evidence for an atrial septal defect. Mitral Valve: The mitral valve leaflets appear borderline thickened, but open well. There is a flat closure plane of the the mitral valve leaflets. There is trace mitral regurgitation. Aortic Valve: The aortic valve is trileaflet. The aortic valve is slightly calcified. The aortic valve opens well. No aortic regurgitation is present. Tricuspid Valve: The tricuspid valve leaflets are thin and pliable. There is a trace or physiologic amount of tricuspid regurgitation. Pulmonary artery pressures cannot be estimated because of the lack of a measurable TR jet velocity. Pulmonic Valve: The pulmonic valve leaflets are thin and pliable; valve motion is normal. There is no pulmonic valvular regurgitation. There is no significant valvular heart disease. Great Vessels: The aortic root is normal size. The ascending aorta is at the upper limits of normal in size. The aortic arch is normal in size. The pulmonary artery is not well visualized, but is probably normal size. The IVC is of normal diameter and collapses greater than 50% with a sniff. This suggests a low right atrial pressure of 3 mm Hg. Pericardium/ Pleura There is no pericardial effusion. There is no pleural effusion. MMode/2D Measurements & Calculations LVIDd: 3.5 cm LA dimension: 3.5 cm RA long axis LVOT diam: 2.4 cm LVIDs: 2.3 cm AoV Opening FS: 35.8 % LA A2 area: 19.0 cm RA area EPSS: 0.57 cm LA A4 area: 17.6 cm Ao root diam IVSd: 1.6 cm LA length (vol) : 14.4 cm LVPWd: 1.4 cm RA vol asc Aorta Diam LA vol: 56.3 ml : 39.7 ml LA vol index RA Ao Arch Diam (Prox : 19.9 mm2 Trans): 2.6 cm : 28.2 ml/m2 LV de la torre. diameter/BSA LV sys. diameter/BSA (cm/m^2): 1.8 (cm/m^2): 1.1 Doppler Measurements & Calculations Ao V2 max MV E max casey MV E/A: 0.76 MV P1/2t max casey : 158.3 cm/sec : 83.4 cm/sec Med Peak E' Casey Ao max PG MV A max casey : 10.0 mmHg : 110.1 cm/sec E/E' med: 11.2 MVA(P1/2t): 2.5 cm2 Ao mean PG MV P1/2t Lat Peak E' Casey : 86.6 msec LVOT Max Casey E/E' lat: 11.9 : 120.6 cm/sec E/e' average: 11.6 Pulm A Revs Dur ROZ(I,D): 2.8 cm sev ratio MV A dur: 0.10 sec Ao V2 mean LV V1 max PG ROZ indexed to BSA Pulm A Revs Dur - MV : 111.1 cm/sec (cm^2/m^2): 1.4 A Dur: 0.03 msec Ao V2 VTI LV V1 VTI : 17.9 cm ROZ(V,D): 3.4 cm2 Reading Physician:02:40 PM
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
[2016-06-20] MEDS ORDERED: Albuterol 2.5 mg/3 mL Inhalation Solution NEB PRN (17:30)
[2016-06-20] MEDS ORDERED: Ondansetron 2 mg/mL 2 mL Inj IVPUSH PRN (17:30)
[2016-06-20] MEDS ORDERED: Polyethylene Glycol (PEG) 17 Gm Powder PO PRN (17:30)
[2016-06-20] MEDS: Albuterol-Ipratropium 3 mL Inhalation Solution NEB SCH (20:26)
[2016-06-20] MEDS: Fluticasone-Salmererol 250-50 Inhaler INHALATION SCH ×2 (21:10→22:49)
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
[2016-06-21] VITALS (11 sets, daily range): BP systolic 96–112; BP diastolic 58–70; PULSE 74–100; RESP 18–24; O2SAT 89–94
[2016-06-21] MEDS: Albuterol-Ipratropium 3 mL Inhalation Solution NEB SCH ×4 (02:40→20:17)
[2016-06-21 06:14] LABS: Platelet Count 218 bil/L (150-400)
[2016-06-21 06:15] LABS: BASOPHILS % (AUTO) 0.2 % (0-3); MONOCYTES % (AUTO) 11.4 % (4-12); Mean Corpuscular Volume 95.5 fL (81-100); NEUTROPHILS % (AUTO) 54.6 % (40-74)
[2016-06-21 07:22] LABS: Magnesium 2.1 mg/dL (1.6-2.6); Phosphorus 3.4 mg/dL (2.5-4.9)
[2016-06-21] MEDS: predniSONE 20 mg Tablet PO SCH (07:35)
[2016-06-21 07:36] LABS: ERYTHROCYTE SEDIMENTATION RATE 16 mm/hr (0-40)
[2016-06-21] MEDS: Fluticasone-Salmererol 250-50 Inhaler INHALATION SCH ×2 (07:36→22:03)
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
--- NOTE | 2016-06-21 10:48 | NUR ---
Gave access and faxed referral to [facility] ,[facility], [facility] and [facility]. Patient came through ER and this request came from CAFETERIA DIRECTOR and CAFETERIA DIRECTOR joint supervisor. Addendum: 06/21/16 at 1157 by DOLORES BEARD Sangita from [facility] called and they do hold [employer] contract and she will discuss patient with ED barrier is patient's current discharge plan. Updated CAFETERIA DIRECTOR
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
[2016-06-21] MEDS: Alum-Mag Hydrox-Simeth 30 mL Suspension PO PRN (19:57)
--- NOTE | 2016-06-21 23:21 | NUR ---
nausea Pt vomited, complained of nausea. Said that the ice cream made her sick. Offered Zofran for nausea, pt declined and said she would be better.
[2016-06-22] VITALS (12 sets, daily range): BP systolic 107–116; BP diastolic 58–77; PULSE 75–100; RESP 18–22; O2SAT 90–94
[2016-06-22] MEDS: Albuterol-Ipratropium 3 mL Inhalation Solution NEB SCH ×4 (02:23→21:02)
[2016-06-22 06:35] LABS: BASOPHILS % (AUTO) 0.2 % (0-3); EOSINOPHILS % (AUTO) 1.6 % (0-5); MONOCYTES % (AUTO) 10.6 % (4-12); Mean Corpuscular Hemoglobin 30.1 pg (27.0-35.0); Mean Corpuscular Volume 96.5 fL (81-100); NEUTROPHILS % (AUTO) 59.1 % (40-74); Platelet Count 215 bil/L (150-400)
[2016-06-22] MEDS: predniSONE 20 mg Tablet PO SCH (07:44)
[2016-06-22] MEDS: Fluticasone-Salmererol 250-50 Inhaler INHALATION SCH ×2 (07:44→21:26)
--- NOTE | 2016-06-22 09:25 | NUR ---
LEIGHA signed. DORINA Delgadillo
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
--- NOTE | 2016-06-22 14:19 | NUR ---
Social Work-continue d/c planning: Data:EMR reviewed. Pt is on day 2 of hospitalization for COPD per H&P. Pt is not medically stable for discharge at this time. In Morning rounds, states he will order PT to see pt. SW followed up with pt to discuss discharge planning, SW role explained. SW discussed possibility of SNF. Pt is not sure if this is something that she wants, but she is agreeable to think about it. Pt states her first choice for facility would be [facility]. If pt does not go to SNF then she plans to return to her van. Referrals have been made to [facility], [facility], [facility], and [facility]. SW will continue to follow. Assessment:SNF vs back to van. Plan:Pt to either discharge back to Van when medically stable vs SNF. PT evaluation is pending. SW will continue to follow. DORINA Delgadillo
--- NOTE | 2016-06-22 18:33 | NUR ---
Evaluation completed. Please go to "Notes" then click on "Assessments and Notes" (bottom left corner of screen). Then select appropriate discipline tab on top of screen.
--- NOTE | 2016-06-22 18:34 | NUR ---
Activity: Patient has been ambulating in her room and in the halls today. She took a shower and says she feels a little stronger today.
[2016-06-22] MEDS: Alum-Mag Hydrox-Simeth 30 mL Suspension PO PRN (21:26)
[2016-06-23] VITALS (12 sets, daily range): BP systolic 120–132; BP diastolic 67–80; PULSE 87–96; RESP 20–32; O2SAT 90–94
[2016-06-23] MEDS: Albuterol-Ipratropium 3 mL Inhalation Solution NEB SCH ×4 (01:53→19:52)
[2016-06-23 05:39] LABS: BASOPHILS % (AUTO) 0.4 % (0-3); EOSINOPHILS % (AUTO) 1.2 % (0-5); MONOCYTES % (AUTO) 12.1 % (4-12); Mean Corpuscular Hemoglobin 30.2 pg (27.0-35.0); Mean Corpuscular Volume 95.3 fL (81-100); NEUTROPHILS % (AUTO) 55.9 % (40-74); Platelet Count 240 bil/L (150-400)
--- NOTE | 2016-06-23 06:29 | NUR ---
Noc activity Pt denies chest pain, still having mild sob. Currently on 2LPM NC and saturating around 90's. Breathing Tx provided by RT as scheduled. No nausea or vomiting noted, houry rounding done and pt has slept most of the night.
[2016-06-23] MEDS: predniSONE 20 mg Tablet PO SCH (09:34)
[2016-06-23] MEDS: Fluticasone-Salmererol 250-50 Inhaler INHALATION SCH ×2 (09:35→20:08)
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
--- NOTE | 2016-06-23 11:55 | NUR ---
YESSENIA spoke with Vani at [facility] they are still reviewing. Spoke with Levy at [facility], still reviewing. YESSENIA left message with Salty and [facility]. YESSENIA will continue to follow. DORINA Delgadillo
--- NOTE | 2016-06-23 15:28 | NUR ---
[facility] has declined pt. Renetta Lindsey,BUSINESS SCHOOL DEAN
--- NOTE | 2016-06-23 18:20 | NUR ---
Activity: Patient ambulated in the halls with [facility] x4 today. She was able to visit her friend who is also in the hospital and eat lunch with her. Patients dressing on her fingers was changed , the fingers continue to heal and show no s/s of infection Tylenol was given for her finger pain with good pain relief bringing her pain down from a 7 to a 3 on 1-10 scale.
[2016-06-24] VITALS (12 sets, daily range): BP systolic 116–136; BP diastolic 67–84; PULSE 78–101; RESP 20–33; O2SAT 92–96
[2016-06-24] MEDS: Albuterol-Ipratropium 3 mL Inhalation Solution NEB SCH ×4 (02:55→19:46)
--- NOTE | 2016-06-24 06:28 | NUR ---
NOC activity Pt alert and oriented. Denies chest pain. Reports mild sob. Breathing Tx administered by RT as scheduled. Denies n/v or abd discomfort. Pt seems frustrated about her incontinence, and states that she doesn't know when she's going or not. Offer scheduled toileting, pt states understanding but is forgetful. Intentional hourly rounding done, VSS and pt has been afebrile overnight.
[2016-06-24 06:48] LABS: BASOPHILS % (AUTO) 0.3 % (0-3); EOSINOPHILS % (AUTO) 0.9 % (0-5); MONOCYTES % (AUTO) 10.2 % (4-12); Mean Corpuscular Hemoglobin 30.4 pg (27.0-35.0); Mean Corpuscular Volume 95.7 fL (81-100); NEUTROPHILS % (AUTO) 56.4 % (40-74); Platelet Count 255 bil/L (150-400)
[2016-06-24] MEDS: Fluticasone-Salmererol 250-50 Inhaler INHALATION SCH ×2 (09:30→20:06)
[2016-06-24] MEDS: predniSONE 20 mg Tablet PO SCH (09:30)
--- NOTE | 2016-06-24 11:50 | NUR ---
[facility] is coming to see patient between 1230 and 1PM. Updated LIFT TEAM TECHNICIAN Addendum: 06/24/16 at 1419 by DOLORES BEARD CM José Luis from [facility] came and did onsite with patient and they were concerned about patient feeling like a usp facility is where you go to . There was also some concern about middle or intermediate school principal plan. Sangita will work on authorization but they are concerned about flight risk. Sangita needs to know if patient is willing and would be less of flight risk. DORINA is going to follow up with patient and then we will let [facility] know.
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
[2016-06-25] VITALS (12 sets, daily range): BP systolic 120–136; BP diastolic 74–83; PULSE 79–117; RESP 20–32; O2SAT 91–96
[2016-06-25] MEDS: Albuterol-Ipratropium 3 mL Inhalation Solution NEB SCH ×4 (02:40→20:43)
--- NOTE | 2016-06-25 06:33 | NUR ---
Pain Pt complains of pain on her left fingers due to benavidez. Tylenol administered PRN. Denies chest pain, having mild sob and is wearing 2LPM NC of o2 saturating high 90's. Telemetry monitoring noted no abnormal ectopy. Denies n/v or abd discomfort. VSS, and pt has been afebrile overnight.
[2016-06-25 07:52] LABS: BASOPHILS % (AUTO) 0.4 % (0-3); EOSINOPHILS % (AUTO) 0.8 % (0-5); MONOCYTES % (AUTO) 8.4 % (4-12); Mean Corpuscular Volume 91.6 fL (81-100); NEUTROPHILS % (AUTO) 58.6 % (40-74); Platelet Count 281 bil/L (150-400)
[2016-06-25] MEDS: predniSONE 20 mg Tablet PO SCH (09:26)
[2016-06-25] MEDS: Fluticasone-Salmererol 250-50 Inhaler INHALATION SCH ×2 (09:26→20:22)
--- NOTE | 2016-06-25 10:25 | NUR ---
Social Work-continued d/c planning: Data:EMR reviewed. Pt is on day 5 of hospitalization for COPD and hypoxia per H&P. Pt is not medically stable for discharge. SW spoke with pt today to discuss discharge planning, SW role explained. Pt very hesitant at first about SNF, but realizes that this would be needed to help herself get better. SW explained that [facility] is planning on coming and visiting pt today at bedside. Pt is agreeable to this visit. Paperwork in the chart. SW will continue to follow. Assessment:Pt who would benefit from SNF. Plan:[facility] to come and see pt today. Paperwork in the chart. SW will continue to follow. DORINA Delgadillo
--- NOTE | 2016-06-25 11:56 | NUR ---
spiritual care: (late entry) visit yesterday during [facility] staff visit and following. pt reflected on her concerns and hopes about discharge plans. Pt shared her general malaise about growing older and facing new limitations. pt engaged with exploration of values as she faces possible changes in lifestyle, and I assisted her making contact with other community friends.
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
[2016-06-26] VITALS (10 sets, daily range): BP systolic 110–145; BP diastolic 71–92; PULSE 79–111; RESP 20–26; O2SAT 91–98
[2016-06-26] MEDS: Albuterol-Ipratropium 3 mL Inhalation Solution NEB SCH ×4 (01:39→21:43)
[2016-06-26] MEDS: predniSONE 20 mg Tablet PO SCH (08:01)
[2016-06-26] MEDS: Fluticasone-Salmererol 250-50 Inhaler INHALATION SCH ×2 (08:02→20:30)
--- NOTE | 2016-06-26 10:39 | NUR ---
Called and spoke with Sangita at [facility] and asked to start authorization to see what her insurance will give us. Spoke with Shahid at [facility] and they are unable to accept patient, patient has been with them before and is not a good fit. Updated SAP SOLUTION MANAGER CONSULTANT
--- NOTE | 2016-06-26 14:28 | NUR ---
spiritual care: follow up brief conversational visit. pt agreeable for visit from caring automotive machinist apprentice later in day. expressive of her loneliness and apprehension. Addendum: 06/26/16 at 1812 by YESSENIA SY CM pt rec. visit from caring automotive machinist apprentice Basia. She reports lengthy conversational visit which pt seemed to enjoy.
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
[2016-06-27] VITALS (12 sets, daily range): BP systolic 116–144; BP diastolic 65–91; PULSE 74–102; RESP 18–22; O2SAT 91–96
[2016-06-27] MEDS: Albuterol-Ipratropium 3 mL Inhalation Solution NEB SCH ×4 (02:58→19:48)
--- NOTE | 2016-06-27 03:20 | NUR ---
sleep: pt has been sleeping most of shift. incontinent of urine X1. woke up with pain in right hip. total bed change, pt sitting in chair talking with RN. A&OX3. pt easily fell back to sleep. will continue to monitor pt
[2016-06-27] MEDS ORDERED: predniSONE 20 mg Tablet PO SCH (08:30)
[2016-06-27] MEDS: Fluticasone-Salmererol 250-50 Inhaler INHALATION SCH ×2 (09:46→21:06)
--- NOTE | 2016-06-27 17:21 | NUR ---
Wound Care Patient seen at bedside for treatment of her finger benavidez. Benavidez continue to decrease in size and are becoming less painful. Rewrapped with conform and coban. Recommend vaseline gauze remain in place at next dressing change, nursing can change dressing 06/29, WC to recheck on benavidez 07/01.
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
--- NOTE | 2016-06-27 18:09 | NUR ---
Activity: Patient sat in the diaz and visited with pastor Stanton for most of the evening. She has had a good appetite and appears to be in good spirits today. She has been pleasant and cooperative with care.
--- NOTE | 2016-06-27 18:22 | NUR ---
spiritual care: follow up lengthy conversational visit in lobby. Pt reflective about her life, kalli, housing preferences, work and values. Pt enjoyed several packs of stuart crackers and coffee "let's have a republican, why not?" Pt breathing easily, speaking with animation and clarity.
[2016-06-28 01:56] VITALS: BP 122/72; PULSE 78; RESP 18; O2SAT 97
[2016-06-28] MEDS: Albuterol-Ipratropium 3 mL Inhalation Solution NEB SCH ×2 (02:42→09:35)
[2016-06-28 02:43] VITALS: PULSE 87; O2SAT 91
[2016-06-28 05:25] VITALS: BP 104/66; PULSE 72; RESP 18; O2SAT 98
[2016-06-28 05:29] VITALS: PULSE 88
[2016-06-28 08:00] VITALS: PULSE 103
[2016-06-28] MEDS ORDERED: predniSONE 20 mg Tablet PO SCH (08:30)
--- NOTE | 2016-06-28 08:57 | NUR ---
Spoke with Sangita in admissions at [facility] and she is calling Will this morning and checking as she did not receive updated yesterday. Updated BAR CAPTAIN
[2016-06-28] MEDS ORDERED: ADV250INH INHALATION (09:10)
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
[2016-06-28 09:36] VITALS: PULSE 102; RESP 20; O2SAT 92
[2016-06-28] MEDS: Fluticasone-Salmererol 250-50 Inhaler INHALATION SCH (09:44)
--- NOTE | 2016-06-28 11:11 | NUR ---
Discharge Nrsing Note: Patient was discharged back to her Van at 1040. Patients IV was discontinued intact . Her Telemetry was removed . Her discharge information was reviewed with her and all of her questions were answered to her satisfaction. Patient was given information and number to call to replace her oxygen concentrator. It was explained to her that the concentrator will not be covered by her insurance per the . Patient stated that she understood. Patient was escorted by nursing staff member to her van that was parked out in the front hospital parking lot. All of patients belongings were brought to her van also.Patient drove herself to her Eye doctor appointment that she said she had this morning.
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
[2016-06-29] MEDS ORDERED: ALBU8.5H2 INHALATION (14:14)
== END 2016-06-28 10:40 | disposition home or self-care (01) | DRG 189 ==
LOC: SED 05:09 → OFED 09:26 → MPC 12:33
PROVIDERS: ADMIT Internal Medicine Infectious Disease; ATTEND Internal Medicine Infectious Disease
DX: J96.21 Acute and chronic respiratory failure with hypoxia (principal); J44.1 Chronic obstructive pulmonary disease with (acute) exacerbation; J45.901 Unspecified asthma with (acute) exacerbation; F17.210 Nicotine dependence, cigarettes, uncomplicated; I10 Essential (primary) hypertension; Z59.0 Homelessness; E66.9 Obesity, unspecified; Z68.36 Body mass index [BMI] 36.0-36.9, adult; R19.7 Diarrhea, unspecified

== ENCOUNTER 2016-06-29 12:45 | Emergency (ER) | payer MEDICARE, MEDICAID ==
[~2016-06-29] VITALS: Ht 162.6 cm; Wt 97.7 kg
[~2016-06-29 12:45] MED LIST changes: +ADV250INH INHALATION
[2016-06-29 12:58] VITALS: BP 137/87; PULSE 117; RESP 24; O2SAT 91
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
[2016-06-29] MEDS ORDERED: Albuterol-Ipratropium 3 mL Inhalation Solution NEB ONE (13:30)
[2016-06-29 13:38] VITALS: PULSE 119; RESP 24; O2SAT 90
[2016-06-29] MEDS ORDERED: ALBU8.5H2 INHALATION (14:14)
[2016-06-29 14:31] VITALS: BP 147/87; PULSE 91; RESP 20; O2SAT 94
[2016-06-30] MEDS ORDERED: FLUT1DIS5 IH (08:15)
[2016-06-30] MEDS ORDERED: ALBU8.5H2 INHALATION (08:15)
== END 2016-06-29 14:32 | disposition home or self-care (01) ==
LOC: SED 12:45
DX: J44.1 Chronic obstructive pulmonary disease with (acute) exacerbation (principal); Z76.89 Persons encountering health services in other specified circumstances; I10 Essential (primary) hypertension; J45.909 Unspecified asthma, uncomplicated; F17.200 Nicotine dependence, unspecified, uncomplicated; Z88.0 Allergy status to penicillin; Z88.2 Allergy status to sulfonamides
CPT/HCPCS: 94664; 99283; J7620

== ENCOUNTER 2016-06-30 08:03 | Emergency (ER) | payer MEDICARE, MEDICAID ==
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
[2016-06-30] MEDS ORDERED: Albuterol-Ipratropium 3 mL Inhalation Solution NEB ONE (08:10)
[2016-06-30 08:12] VITALS: BP 139/100; PULSE 111; RESP 42; O2SAT 98
[2016-06-30] MEDS ORDERED: FLUT1DIS5 IH (08:15)
[2016-06-30] MEDS ORDERED: ALBU8.5H2 INHALATION (08:15)
[2016-06-30 08:19] VITALS: PULSE 112; RESP 22; O2SAT 94
[2016-06-30 08:55] VITALS: BP 127/84; PULSE 102; RESP 32; O2SAT 89
== END 2016-06-30 09:10 | disposition home or self-care (01) ==
LOC: SED 08:03
DX: J44.1 Chronic obstructive pulmonary disease with (acute) exacerbation (principal); I10 Essential (primary) hypertension; F17.200 Nicotine dependence, unspecified, uncomplicated; Z88.0 Allergy status to penicillin; Z88.2 Allergy status to sulfonamides; Z87.01 Personal history of pneumonia (recurrent)
CPT/HCPCS: 94664; 99283; J7620

== ENCOUNTER 2016-07-02 13:46 | Emergency (ER) | payer MEDICARE, MEDICAID ==
[~2016-07-02] VITALS: Ht 162.6 cm; Wt 215.0 kg
[~2016-07-02 13:46] MED LIST changes: +FLUT1DIS5 IH
[2016-07-02 13:51] VITALS: BP 134/80; PULSE 101; RESP 22; O2SAT 96
--- NOTE | 2016-07-02 15:03 | ED.REPORT ---
HPI-General Illness Date of Service Jul 02, 2016 ED Provider: Willie Cm MD The patient is a 76 year old female with history of asthma, COPD, hypertension, as well as pneumonia, she uses albuterol and Advair with history of intermittent medication noncompliance. She also reportedly has had an O2 concentrator but has lost this and she is here trying to get a new one. She has a prescription to get a new O2 concentrator but she has not taken it to a pharmacy yet. She presents today by EMS from urgent care complaining of worsening shortness of breath. She was given a breathing treatment at urgent care that has provided some relief. She is currently homeless and lives in her van. Nursing Notes Stated Complaint: SHORTNESS OF BREATH Chief Complaint: Respiratory Distress Nursing Notes Reviewed: Yes Allergies: Coded Allergies: Penicillins (Verified Allergy, Unknown, 06/20/16) Sulfa (Sulfonamide Antibiotics) (Verified Allergy, Unknown, 06/20/16) Scheduled Albuterol HFA (Proair HFA) 8.5 Gm Hfa.aer.ad 2 PUFFS INHALATION Q4H disp with aerochamber and review appropriate inhaler technique. Albuterol HFA (Proair HFA) 8.5 Gm Hfa.aer.ad 2 PUFFS INHALATION Q4H dispense with chamber. please review appropriate use of inhaler with spacer Fluticasone/Salmeterol (Advair 250-50 Diskus) 60 Puff/Inh Disk 1 PUFF INHALATION BID Fluticasone/Salmeterol (Advair 500-50 Diskus) 1 Each Disk.w.dev 1 PUFF IH BID Prednisone (PredniSONE) 20 Mg Tablet 40 MG PO DAILY Scheduled PRN Albuterol HFA (Proair HFA) 8.5 Gm Hfa.aer.ad 2 PUFFS INHALATION Q4H PRN PRN For Shortness of Breath General Time Seen by MD: 15:03 Chief Complaint Other (shortness of breath) Hx Obtained From: Patient, EMS Arrived By: Ambulance Sudden in Onset?: No Onset Occurred: More than a week ago... Symptom Duration: Since onset Severity: Current: No pain currently Severity: Maximum: No pain Recent Healthcare: No recent hospitalization, Recent doctor visit Similar Sx Previous: Yes Past Medical History Past Medical History Notes: PCP: Dr. Ariana Miller Past Medical History Chronic hip and back pain Pneumonia with hospitalization Reports: Asthma, COPD, Hypertension Past Surgical History Stomach surgery. Right leg surgery. Family History non-contributory Smoking History Current Every Day Smoker Social History Living in her van for past ten years Alcohol Use: Denies alcohol use Drug Use: Denies drug use Other Social History: Homeless Ambulatory Status Wheelchair Review of Systems Full Review of Systems Respiratory: Reports: Shortness of breath Complete sys rev & neg: except as marked. Physical Exam Vital Signs Vital Signs Date Time Temp Pulse Resp B/P Pulse Ox O2 Delivery O2 Flow Rate FiO2 07/02/16 16:05 37.2 88 121/62 99 Nasal Cannula 3.5 07/02/16 13:51 37.5 101 22 134/80 96 Nasal Cannula 2 Initial VS: Reviewed Head / Eyes: Atraumatic, Normocephalic, PERRL ENT: Mucous membranes moist, Conjunctiva normal, No scleral icterus Neck: Supple, Non-tender, Full range of motion Cardiovascular: Regular rate & rhythm, Heart sounds normal, Intact distal pulses Abdomen / GI: Soft, Non-tender, No guarding, No rebound, No distention Lymphatic: No lymphadenopathy Extremities: Vascular intact, Neuro intact, No swelling, No tenderness Skin: Warm, Dry, No cyanosis Neurologic: Alert, Oriented, Nonfocal Psychiatric: Mood/affect normal, Behavior normal, Normal thought content General/Constitutional: Awake, Alert Respiratory / Chest: Breath sounds = bilat, No respiratory distress, No rales, No rhonchi Wheezing / Retractions: Positive: Wheezing expiratory (mild) Re-Eval/Medical Decision Med Decision/Clinical Course The patient is a 76 year old female with history of asthma, COPD, hypertension, as well as previous pneumonia, she uses albuterol and Advair with history of intermittent medication noncompliance. She also reportedly has had an O2 concentrator but has lost this and she is here trying to get a new one. She has a prescription to get a new O2 concentrator but she has not taken it to a pharmacy yet. She presents today by EMS from urgent care complaining of worsening shortness of breath/wheezing. She was given a breathing treatment at urgent care that has provided some relief. She is currently homeless and lives in her van. Upon arrival pt is borderline tachycardic with a heart rate of 101, otherwise afebrile with stable vitals signs. Oxygen saturation of 96 % on 2 L by nasal canula. Upon chart review the tachycardia is regular baseline. Here she was treated with 40 mg of oral prednisone and a DuoNeb treatment. She reported significant symptomatic improvement. She remained afebrile without any cough. Reportedly chest x-ray obtained at urgent care demonstrated no focal pneumonia image is not immediately available. She reported significant subjective improvement. Overall presentation consistent with COPD exacerbation. At this time no convincing evidence of bacterial pneumonia and she remains afebrile. Patient ambulated on room air and tolerated well without oxygen. She has prescription for oxygen concentrator and is advised to take this to be filled. She is provided with a 5 day course of prednisone for her COPD exacerbation. She currently has all of her needed bronchodilator's. Prior to discharge follow-up and return precautions were reviewed in detail with the patient who verbalized understanding and agreement with the plan. The patient was discharged in stable condition. Source of Hx: Old records Time of Eval: 15:41 Re-Evaluation/Progress Note: The patient is feeling better. Time of Eval: 16:36 Re-Evaluation/Progress Note: The patient was able to ambulate with her walker. She will be discharged home at this time. Counseled Regarding: Diagnosis, Lab results, Need for follow-up, When/why to return to ED Discharge & Departure Primary Impression: COPD exacerbation Additional Impressions: Noncompliance with medication regimen Homelessness Disposition: Home Discharge Condition All VS Reviewed: Yes Condition: Stable Patient Instructions: Chronic Obstructive Pulmonary Disease (ED) Additional Instructions: Thank you for seeking care at the emergency room. Our primary goal today in the ED was to evaluate you for any life-threatening conditions. Your evaluation was reassuring. You will be discharged with a prescription for Prednisone. Use your albuterol inhaler every 2-4 hours as needed. Make sure to crop picker your oxygen concentrator that was already prescribed to you. You should follow-up with your primary doctor in the next week. You should return to the ED immediately if you develop increased work of breathing, chest pain, fevers, vomiting, cough, lightheadedness, weakness or any other concerning signs or symptoms. Thank you for letting us partake in your care today. Referrals: Adam Lane MD (PCP) Scribe Attestation Portions of this note were transcribed by Anabell Alva. I, Dr. Walters personally performed the history, physical exam and medical decision-making; I reviewed and confirmed the accuracy of the information in the transcribed note. Signed by: Alana Tapia, 07/02/2016 at 1640. copies to: Adam Lane MD, Beck O MD Jul 02, 2016 15:03 Anabell Alva Jul 02, 2016 15:21
[2016-07-02] MEDS ORDERED: PRE20 PO (15:49)
[2016-07-02] MEDS ORDERED: predniSONE 20 mg Tablet PO ONE (15:50)
[2016-07-02] MEDS ORDERED: Albuterol-Ipratropium 3 mL Inhalation Solution NEB ONE (15:50)
[2016-07-02 16:05] VITALS: BP 121/62; PULSE 88; O2SAT 99
[2016-07-02 16:57] VITALS: PULSE 98; RESP 22; O2SAT 93
== END 2016-07-02 16:57 | disposition home or self-care (01) ==
LOC: SED 13:46 → EDBD 13:46 → SED 16:57
DX: J44.1 Chronic obstructive pulmonary disease with (acute) exacerbation (principal); J45.909 Unspecified asthma, uncomplicated; I10 Essential (primary) hypertension; F17.200 Nicotine dependence, unspecified, uncomplicated; Z91.14 Patient's other noncompliance with medication regimen; Z59.0 Homelessness; Z88.0 Allergy status to penicillin; Z88.2 Allergy status to sulfonamides
CPT/HCPCS: 94664; 99283; J7620

== ENCOUNTER 2016-07-05 05:54 | Emergency (ER) | payer MEDICARE, MEDICAID ==
[~2016-07-05] VITALS: Ht 162.6 cm; Wt 96.4 kg
[~2016-07-05 05:54] MED LIST changes: +PRE20 PO
[2016-07-05 06:02] VITALS: BP 137/94; PULSE 97; RESP 28; O2SAT 93
--- NOTE | 2016-07-05 06:13 | ED.REPORT ---
HPI-Dyspnea / Wheezing Date of Service Jul 05, 2016 ED Provider: Gerry Baker DO The patient is a 76 year old female w/ a hx of asthma, COPD, hypertension, as well as pneumonia, she uses albuterol and Advair with history of intermittent medication noncompliance and frequent ED visits. She presents to the ED due increase an increase in SOB today. She used her albuterol inhaler earlier but it was not effective in reducing her symptoms. She also reports chest pain. She has not been eating or drinking anything and requests some food at the ED. Pt is currently homeless and lives in her van. She was last seen for similar symptoms 07/02/16. Nursing Notes Stated Complaint: SHORT OF BREATH Chief Complaint: Respiratory Complaints Nursing Notes Reviewed: Yes Allergies: Coded Allergies: Penicillins (Verified Allergy, Unknown, 07/05/16) Sulfa (Sulfonamide Antibiotics) (Verified Allergy, Unknown, 07/05/16) Scheduled Albuterol HFA (Proair HFA) 8.5 Gm Hfa.aer.ad 2 PUFFS INHALATION Q4H disp with aerochamber and review appropriate inhaler technique. Albuterol HFA (Proair HFA) 8.5 Gm Hfa.aer.ad 2 PUFFS INHALATION Q4H dispense with chamber. please review appropriate use of inhaler with spacer Fluticasone/Salmeterol (Advair 250-50 Diskus) 60 Puff/Inh Disk 1 PUFF INHALATION BID Fluticasone/Salmeterol (Advair 500-50 Diskus) 1 Each Disk.w.dev 1 PUFF IH BID Prednisone (PredniSONE) 20 Mg Tablet 40 MG PO DAILY Prednisone (PredniSONE) 20 Mg Tablet 40 MG PO DAILY begin on 07/06/16 Scheduled PRN Albuterol HFA (Proair HFA) 8.5 Gm Hfa.aer.ad 2 PUFFS INHALATION Q4H PRN PRN For Shortness of Breath General Time Seen by MD: 06:04 Chief Complaint Shortness of breath Hx Obtained From: Patient Past Medical History Past Medical History Notes: PCP: Dr. Ariana Miller Past Medical History Chronic hip and back pain Pneumonia with hospitalization Reports: Asthma, COPD, Hypertension Past Surgical History Stomach surgery. Right leg surgery. Family History non-contributory Smoking History Current Every Day Smoker Social History Living in her van for past ten years Alcohol Use: Denies alcohol use Drug Use: Denies drug use Other Social History: Homeless Ambulatory Status Wheelchair Review of Systems Respiratory: Reports: Shortness of breath Cardiovascular: Denies: Chest pain Complete sys rev & neg: except as marked. Physical Exam Initial Vital Signs Vital Signs (First) Date Time Temp Pulse Resp B/P Pulse Ox O2 Delivery O2 Flow Rate FiO2 07/05/16 06:02 36.6 97 28 137/94 93 Room Air Initial VS: Reviewed Head / Eyes: Atraumatic, Normocephalic, PERRL ENT: Mucous membranes moist, Conjunctiva normal Abdomen / GI: Soft, Non-tender, No guarding, No rebound Extremities: Vascular intact, No swelling, No tenderness Skin: Warm, Dry, No cyanosis General/Constitutional: Awake, Alert, Cooperative smells of smoke Neck: Atraumatic, Supple, No swelling, Non-tender Respiratory / Chest: No retractions, No stridor Wheezing / Retractions: Positive: Wheezing expiratory Cardiovascular: Heart rate NL, No gallop, No murmurs Interpretation & Diagnostics ECG Interpretation ECG Interpretation: PVC no acute ST changes Time: 06:18 Interpreted by: ED physician Normal ECG Interpretation: Normal sinus rhythm Re-Eval/Medical Decision Med Decision/Clinical Course Overall, not in severe distress, respiratory status stabilized after nebulizer therapy, given a steroid ascription. I doubt pneumonia, overall the patient's main complaint was being tired of her chronic illness and not having enough food. I did confirm that the patient had her home medications and the patient is stable for discharge. Return and follow-up precautions are given. Re-Evaluation/Progress : Time of Eval: 06:50 Re-Evaluation/Progress Note: Pt rechecked. Breathing treatment is helping. Plan for steroid treatment and discharge. F/U and RTER warnings given. Pt understands and agrees with plan. Counseled Regarding: Diagnosis, Lab results, Need for follow-up, When/why to return to ED Discharge & Departure Impression: Primary Impression: COPD with acute exacerbation Disposition: Home Discharge Condition All VS Reviewed: Yes Condition: Stable Additional Instructions: Use your inhalers as prescribed. You can take albuterol every 4 hours as needed. Follow-up with your primary care doctor in the next few days. Return to the ER as needed for worsening trouble breathing or other concerns. Referrals: Adam Lane MD (PCP) Scribe Attestation Portion of this note were transcribed by Marcela Cuba. I, Dr. Baker, personally performed the history, physical exam, and medical decision-making: I reviewed and confirmed the accuracy for the information in the transcribed note. Signed by: sky Mckee, 07/05/16 0800 copies to: Adam Lane MD, Timothy S DO Jul 05, 2016 06:13 Marcela Cuba Jul 05, 2016 06:19
[2016-07-05] MEDS ORDERED: Albuterol 2.5 mg/3 mL Inhalation Solution NEB ONE (06:20)
[2016-07-05] MEDS ORDERED: Albuterol-Ipratropium 3 mL Inhalation Solution NEB ONE (06:20)
[2016-07-05 06:24] VITALS: PULSE 92; RESP 24; O2SAT 95
[2016-07-05] MEDS ORDERED: PRE20 PO (06:55)
[2016-07-05 07:16] VITALS: BP 118/58; PULSE 88; RESP 12; O2SAT 99
[2016-07-05 08:03] VITALS: BP 144/84; PULSE 93; RESP 28; O2SAT 91
== END 2016-07-05 08:05 | disposition home or self-care (01) ==
LOC: SED 06:15
DX: J44.1 Chronic obstructive pulmonary disease with (acute) exacerbation (principal); J45.909 Unspecified asthma, uncomplicated; I10 Essential (primary) hypertension; F17.200 Nicotine dependence, unspecified, uncomplicated; Z59.0 Homelessness; Z88.0 Allergy status to penicillin; Z88.2 Allergy status to sulfonamides
CPT/HCPCS: 93005; 99284; J7613; J7620

== ENCOUNTER 2016-07-05 17:33 | Emergency (ER) | payer MEDICARE, MEDICAID ==
[~2016-07-05] VITALS: Ht 162.6 cm; Wt 96.4 kg
[2016-07-05 17:50] VITALS: BP 142/93; PULSE 101; RESP 20; O2SAT 91
[2016-07-05 20:42] VITALS: BP 140/91; PULSE 94; RESP 20; O2SAT 93
[2016-07-05 20:51] VITALS: BP 140/91; PULSE 94; RESP 20; O2SAT 93
== END 2016-07-05 20:51 ==
LOC: SED 17:33
DX: Z53.20 Procedure and treatment not carried out because of patient's decision for unspecified reasons (principal)

== ENCOUNTER 2016-07-14 19:31 | Emergency (ER) | payer MEDICARE, MEDICAID ==
[~2016-07-14] VITALS: Ht 162.6 cm; Wt 96.4 kg
[2016-07-14 19:40] VITALS: BP 138/88; PULSE 114; RESP 36; O2SAT 92
--- NOTE | 2016-07-14 20:55 | ED.REPORT ---
HPI-General Illness Date of Service Jul 14, 2016 ED Provider: Alexandre Lakhani MD Nursing Notes Stated Complaint: GRAVELY DISABLED,CANT CONTROL HER BOWELS Chief Complaint: General Complaint Nursing Notes Reviewed: Yes (Fashion To Figure not reconciled) Allergies: Coded Allergies: Penicillins (Verified Allergy, Unknown, 07/14/16) Sulfa (Sulfonamide Antibiotics) (Verified Allergy, Unknown, 07/14/16) Scheduled Albuterol HFA (Proair HFA) 8.5 Gm Hfa.aer.ad 2 PUFFS INHALATION Q4H disp with aerochamber and review appropriate inhaler technique. Albuterol HFA (Proair HFA) 8.5 Gm Hfa.aer.ad 2 PUFFS INHALATION Q4H dispense with chamber. please review appropriate use of inhaler with spacer Fluticasone/Salmeterol (Advair 250-50 Diskus) 60 Puff/Inh Disk 1 PUFF INHALATION BID Fluticasone/Salmeterol (Advair 500-50 Diskus) 1 Each Disk.w.dev 1 PUFF IH BID Prednisone (PredniSONE) 20 Mg Tablet 40 MG PO DAILY Prednisone (PredniSONE) 20 Mg Tablet 40 MG PO DAILY begin on 07/06/16 Scheduled PRN Albuterol HFA (Proair HFA) 8.5 Gm Hfa.aer.ad 2 PUFFS INHALATION Q4H PRN PRN For Shortness of Breath General Time Seen by MD: 20:53 Past Medical History Past Medical History Notes: PCP: Dr. Ariana Miller Past Medical History Chronic hip and back pain Pneumonia with hospitalization Reports: Asthma, COPD, Hypertension Past Surgical History Stomach surgery. Right leg surgery. Family History non-contributory Smoking History Current Every Day Smoker Social History Living in her van for past ten years Alcohol Use: Denies alcohol use Drug Use: Denies drug use Other Social History: Homeless Ambulatory Status Wheelchair Physical Exam Vital Signs Vital Signs Date Time Temp Pulse Resp B/P Pulse Ox O2 Delivery O2 Flow Rate FiO2 07/14/16 19:40 36.5 114 36 138/88 92 Room Air Initial VS: Reviewed, Vital signs abnormal Re-Eval/Medical Decision Source of Hx: Old records Discharge & Departure Referrals: Adam Lane MD (PCP) Alexandre Lakhani MD Jul 14, 2016 20:55
== END 2016-07-14 21:00 | disposition left against medical advice (07) ==
LOC: SED 19:31
DX: R19.7 Diarrhea, unspecified (principal); Z53.21 Procedure and treatment not carried out due to patient leaving prior to being seen by health care provider

== ENCOUNTER 2016-07-16 06:43 | Observation (INO) | payer MEDICARE, MEDICAID ==
[~2016-07-16] VITALS: Ht 162.6 cm; Wt 93.5 kg
[2016-07-16] VITALS (10 sets, daily range): BP systolic 105–132; BP diastolic 65–89; PULSE 89–106; RESP 16–28; O2SAT 92–96
--- NOTE | 2016-07-16 06:47 | ED.REPORT ---
HPI-Dyspnea / Wheezing Date of Service Jul 16, 2016 ED Provider: Dr. Cm A 76 year old female with a history asthma, COPD, and HTN presents to the ED complaining of bilateral leg swelling. Associated symptoms include SOB. She presents covered in stool and states that she "needs to be in the hospital." She reports that she wants to go to a skilled nursing. She currently is living in her van. Nursing Notes Stated Complaint: DIFFICULTY BREATHING Nursing Notes Reviewed: Yes Allergies: Coded Allergies: Penicillins (Verified Allergy, Unknown, 07/14/16) Sulfa (Sulfonamide Antibiotics) (Verified Allergy, Unknown, 07/14/16) Scheduled Albuterol HFA (Proair HFA) 8.5 Gm Hfa.aer.ad 2 PUFFS INHALATION Q4H disp with aerochamber and review appropriate inhaler technique. Albuterol HFA (Proair HFA) 8.5 Gm Hfa.aer.ad 2 PUFFS INHALATION Q4H dispense with chamber. please review appropriate use of inhaler with spacer Fluticasone/Salmeterol (Advair 250-50 Diskus) 60 Puff/Inh Disk 1 PUFF INHALATION BID Fluticasone/Salmeterol (Advair 500-50 Diskus) 1 Each Disk.w.dev 1 PUFF IH BID Prednisone (PredniSONE) 20 Mg Tablet 40 MG PO DAILY Prednisone (PredniSONE) 20 Mg Tablet 40 MG PO DAILY begin on 07/06/16 Scheduled PRN Albuterol HFA (Proair HFA) 8.5 Gm Hfa.aer.ad 2 PUFFS INHALATION Q4H PRN PRN For Shortness of Breath General Time Seen by MD: 06:46 Chief Complaint Other (bilateral leg swelling) Hx Obtained From: Patient Arrived By: Walk-in Sudden in Onset?: No Onset Occurred: Onset unknown Symptom Duration: Duration unknown Severity: Current: Mild Severity: Maximum: Mild Recent Healthcare: Recent doctor visit (7th ED visit since 06/20/2016.) Similar Sx Previous: No Past Medical History Past Medical History Notes: PCP: Dr. Ariana Miller Past Medical History Chronic hip and back pain Pneumonia with hospitalization. This is patient's 7th ED visit since 06/20/2016. Recent ED visit at [facility]. Reports: Asthma, COPD, Hypertension Past Surgical History Stomach surgery. Right leg surgery. Family History non-contributory Smoking History Current Every Day Smoker Social History Living in her van for past ten years. She is trying to get into a skilled nursing. Alcohol Use: Denies alcohol use Drug Use: Denies drug use Other Social History: Homeless Ambulatory Status Wheelchair Review of Systems Constitutional: Denies: Chills, Fever Respiratory: Reports: Shortness of breath Musculoskeletal: Reports: Extremity swelling (bilateral lower extremities) Complete sys rev & neg: except as marked. Physical Exam Initial Vital Signs Vital Signs (First) Date Time Temp Pulse Resp B/P Pulse Ox O2 Delivery O2 Flow Rate FiO2 07/16/16 07:18 96 16 96 Room Air 07/16/16 07:19 36.7 129/89 Initial VS: Reviewed General/Constitutional: Awake, Alert Neck: Atraumatic, Full range of motion Respiratory / Chest: Atraumatic, Breath sounds NL, Breath sounds = bilat, No respiratory distress, No rales, No rhonchi, No wheezing Cardiovascular: Heart rate NL, Regular rhythm, Heart sounds NL Lower Ext Edema: Positive: Bilateral 2+ ENT: Atraumatic, Mucous membranes moist Abdomen: No guarding, No rebound Skin: Warm, Dry Neurologic: Oriented X3, Speech NL Head / Eyes: Atraumatic, Normocephalic, PERRL, EOMI Interpretation & Diagnostics Interpretation & Diagnostics: NEGATIVE FOR INFLUENZA TYPE A AND B Lab Results Interpretation Result Diagram: 07/16/16 0735 07/16/16 0735 Test 07/16/16 07:35 07/16/16 07:50 White Blood Count 10.3th/mm3 (3.8-10.1) Red Blood Count 5.82mil/mm3 (3.90-5.20) Hemoglobin 17.3g/dL (12.0-15.6) Hematocrit 53.9% (35.0-46.0) Mean Corpuscular Volume 92.6fL (81-100) Mean Corpuscular Hemoglobin 29.7pg (27.0-35.0) Mean Corpuscular Hemoglobin Concent 32.1% (32.0-37.0) Red Cell Distribution Width 14.1% (12.3-15.4) Platelet Count 204bil/L (150-400) Neutrophils (%) (Auto) 65.2% (40-74) Lymphocytes (%) (Auto) 21.6% (14-46) Monocytes (%) (Auto) 10.4% (4-12) Eosinophils (%) (Auto) 2.0% (0-5) Basophils (%) (Auto) 0.2% (0-3) Sodium Level 139mEq/L (134-144) Potassium Level 4.2mEq/L (3.5-5.2) Chloride Level 99mEq/L (97-108) Carbon Dioxide Level 23mmol/L (18-29) Blood Urea Nitrogen 13mg/dL (8-27) Creatinine 0.52mg/dL (0.57-1.00) Estimat Glomerular Filtration Rate 164mL/min (>59) Glucose Level 121mg/dL (60-99) Calcium Level 8.7mg/dL (8.5-10.1) Magnesium Level 2.3mg/dL (1.6-2.6) Total Bilirubin 0.9mg/dL (0.0-1.2) Aspartate Amino Transf (AST/SGOT) 32U/L (0-50) Alanine Aminotransferase (ALT/SGPT) 65U/L (0-32) Alkaline Phosphatase 74U/L (25-165) Troponin T 0.010ug/L (0.0-0.011) Pro-B-Type Natriuretic Peptide 90.73pg/mL (0-738) Total Protein 5.9g/dL (6.4-8.4) Albumin 3.8g/dL (3.4-5.0) Procalcitonin 0.25ng/mL (0.00-0.08) Hold Zaragoza Top Tube Received (Received) ECG Interpretation ECG Interpretation: Rate is 92. Sinus rhythm. Inferior infarct, old. Time: 10:56 Interpreted by: ED physician X-Ray Chest Interpretation Chest Xray Interpretation: IMPRESSION: Opacity in the left lung base which could represent artifact versus consolidation. Recommend standard 2 view plain film radiograph of the chest. Dictated by: Demi Alfredo MD, PhD on 07/16/2016 at 8:31 Approved by: Demi Alfredo MD, PhD on 07/16/2016 at 8:33 View: Portable, 1 view Interpretation / Wet Read by: Interpret - Radiologist Chest Xray Interpretation: IMPRESSION: 1. Perihilar interstitial prominence is similar to previous exams and most likely represents chronic interstitial scarring/changes. A superimposed atypical interstitial pneumonia is difficult to exclude. 2. No consolidating pneumonia. Dictated by: Alfredo Cat M.D. on 07/16/2016 at 9:30 Approved by: Alfredo Cat M.D. on 07/16/2016 at 9:34 Interpretation / Wet Read by: Interpret - Radiologist Re-Eval/Medical Decision Source of Hx: Old records Re-Evaluation/Progress #1: Time of Eval: 08:20 Re-Evaluation/Progress Note: Rechecked patient and checked her fluids. Re-Evaluation/Progress #2: Time of Eval: 11:30 Patient Status: Condition improved Re-Evaluation/Progress Note: Explained plan for hospital admission and pending admission to [facility] afterwards. Patient understands and agrees with the plan. All questions addressed. Consultation #1: Call Returned at: 11:00 Note: Discussed patient case social worker clinical, patient may be able to go to [facility]. Consultation #2: Referral / Consult Name: Raheel Rod MD Consulted With: Hospitalist Call Returned at: 11:54 Bow Stapler: Agrees with eval, Agrees with plan, Accepts admit Note: Discussed patient case with Dr. Rod who accepts patient admit. Counseled Regarding: Diagnosis, Lab results, Need for follow-up, Need for admission Discharge & Departure Impression: Primary Impression: Pneumonia Pneumonia type: due to unspecified organism Laterality: unspecified laterality Lung location: unspecified part of lung Qualified Code: J18.9 - Pneumonia, unspecified organism Disposition: ADMITTED TO HOSPITAL Referrals: Adam Lane MD (PCP) Alana Attestation Portions of this note were transcribed by Jason Singh. I, Dr. Cm personally performed the history, physical exam and medical decision-making; I reviewed and confirmed the accuracy of the information in the transcribed note. Signed by: Alana Davila, 07/16/2016, 1159. copies to: Adam Lane MD, Kirk H MD Jul 16, 2016 06:47 Jason Singh Jul 16, 2016 06:54
[2016-07-16] MEDS ORDERED: Albuterol 2.5 mg/3 mL Inhalation Solution NEB ONE (06:55)
[2016-07-16 07:48] LABS: BASOPHILS % (AUTO) 0.2 % (0-3); MONOCYTES % (AUTO) 10.4 % (4-12); Mean Corpuscular Hemoglobin 29.7 pg (27.0-35.0); Mean Corpuscular Volume 92.6 fL (81-100); NEUTROPHILS % (AUTO) 65.2 % (40-74); Platelet Count 204 bil/L (150-400)
[2016-07-16 08:20] LABS: TROPONIN T 0.01 ug/L (0.0-0.011)
[2016-07-16 08:31] LABS: Magnesium 2.3 mg/dL (1.6-2.6)
--- NOTE | 2016-07-16 08:34 | DRSVH ---
PROCEDURE: X-RAY CHEST ONE VIEW, PORTABLE ([id number]) INDICATIONS: dyspnea TECHNIQUE: One view of the chest was acquired. COMPARISON: [facility], CR, XR CHEST 2VW, 06/09/2016, 10:11. [facility], CR, XR CHEST 1VW (PORTABLE), 06/13/2016, 20:50. [facility], CR, XR CHEST 1VW (PORTABLE), 05/30, 12:29. [facility], CR, XR CHEST 1VW (PORTABLE), 06/20/2016, 5:39. FINDINGS: Surgical changes and devices: None. Lungs and pleura: No pleural effusions or pneumothorax. Increased opacification noted over the perip indra of the left lung base may represent superimposition artifact versus lung opacity. Recommend cristin dard 2 view of the chest. Mediastinum: Mediastinal contours appear normal. Heart size is normal. Bones and chest wall: No suspicious bony lesions. Overlying soft tissues appear unremarkable. IMPRESSION: Opacity in the left lung base which could represent artifact versus consolidation. Recomm end standard 2 view plain film radiograph of the chest. Dictated by: Demi Alfredo MD, PhD on 07/16/2016 at 8:31 Approved by: Demi Alfredo MD, PhD on 07/16/2016 at 8:33
--- NOTE | 2016-07-16 10:36 | DRSVH ---
PROCEDURE: X-RAY CHEST, TWO VIEWS ([id number]) INDICATIONS: inadequate portable chest. cough TECHNIQUE: 2 views of the chest were acquired. COMPARISON: [facility], CR, XR CHEST 1VW (PORTABLE), 07/16/2016, 7:58. [facility], CR, XR CHEST 1VW (PORTABLE), 06/20/2016, 5:39. [facility], CR, XR CHEST 2VW, 2016, 10:11. [facility], CR, XR CHEST 2VW, 04/26/2016, 16:10. FINDINGS: Surgical changes and devices: None. Lungs and pleura: The aeration of the lungs is similar to the previous exams. Mild interstitial prom inence is present within the perihilar regions. There is mild pleural thickening identified along th e left lateral chest wall. Mediastinum: Mediastinal contours are normal. Heart size is normal. There is aortic atherosclerosi s. Bones and chest wall: No suspicious bony abnormalities. Soft tissues appear unremarkable. IMPRESSION: 1. Perihilar interstitial prominence is similar to previous exams and most likely represents chronic interstitial scarring/changes. A superimposed atypical interstitial pneumonia is difficult to exclu de. 2. No consolidating pneumonia. Dictated by: Alfredo Cat M.D. on 07/16/2016 at 9:30 Approved by: Alfredo Cat M.D. on 07/16/2016 at 9:34
--- NOTE | 2016-07-16 10:47 | NUR ---
Gave access to Yael Vogel and she is willing to review and then can start authorization. It is not likely to see authorization today but the process is being started. Updated ED MATERIAL DISPATCHER
[2016-07-16] MEDS ORDERED: Ondansetron 2 mg/mL 2 mL Inj IVPUSH PRN (11:55)
[2016-07-16] MEDS ORDERED: Albuterol 2.5 mg/3 mL Inhalation Solution NEB PRN (12:00)
[2016-07-16] MEDS: Albuterol-Ipratropium 3 mL Inhalation Solution NEB SCH ×4 (12:30→23:32)
[2016-07-16] MEDS ORDERED: cefTRIAXone Inj 2,000 MG in Dextrose 5% Minibag Plus 50 ML IV SCH (12:30)
[2016-07-16] MEDS: Azithromycin Inj 500 MG in Dextrose 5% w/Vial Mate 250 ML IV SCH (13:39)
--- NOTE | 2016-07-16 13:53 | NUR ---
Admit elderly female admitted to room 3023, received from ER via wheelchair. pt ambulated from wheelchair to bed. Pt alert and oriented. distressed about living situation. mildly aggitated about POC and requesting assistance outside the hospital. pt oriented to call light. VSS. antibiotics started. will continue to monitor.
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
[2016-07-16] MEDS ORDERED: PRE20 PO (14:53)
--- NOTE | 2016-07-16 18:25 | NUR ---
spiritual care: pt request conversational visit. pt discouraged, fearful of dying and overwhelmed with health issues including those that compromise her sense of dignity and independence. Pt has practiced as Roman Catholic and discussion included coping/spiritual practices from this tradition. will plan to follow
[2016-07-17] VITALS (10 sets, daily range): BP systolic 122–148; BP diastolic 74–108; PULSE 65–103; RESP 16–22; O2SAT 92–100
--- NOTE | 2016-07-17 00:10 | NUR ---
noc: [address], sob w/ exertion. recovers well, spo2 95% RA. requested NEB. intermittent periods of tearfulness and resolve; "I am dying, and I am alone." sat w/ her several times thru the noc and provided listening support. accepted few snacks and drinks. PRN apap x 1 for LE pain which was helpful. Addendum: 07/17/16 at 0440 by GINNY BRISCOE RN 0200: amb [employer] full loop helpful w/ decreasing anxiety.
[2016-07-17] MEDS: Albuterol-Ipratropium 3 mL Inhalation Solution NEB SCH ×2 (04:38→08:42)
[2016-07-17 06:36] LABS: Magnesium 2.1 mg/dL (1.6-2.6)
[2016-07-17 06:47] LABS: BASOPHILS % (AUTO) 0.1 % (0-3); EOSINOPHILS % (AUTO) 2.3 % (0-5); MONOCYTES % (AUTO) 12.6 % (4-12); Mean Corpuscular Hemoglobin 29.8 pg (27.0-35.0); Mean Corpuscular Volume 92.1 fL (81-100); NEUTROPHILS % (AUTO) 54.9 % (40-74); Platelet Count 194 bil/L (150-400)
[2016-07-17] MEDS: Azithromycin Inj 500 MG in Dextrose 5% w/Vial Mate 250 ML IV SCH (08:04)
--- NOTE | 2016-07-17 11:13 | NUR ---
Case Management:BRITTNI given and explained to pt. Anayeli JARRELLRN
--- NOTE | 2016-07-17 11:15 | PCM.PNMED ---
Subjective Date of Service Jul 17, 2016 Subjective Patient c/o mild SOB, but no cough, sputum Complain of generalized weakness No nausea or vomiting, toenail pain, constipation, diarrhea Exam Vital Signs Vital Sign - Last Date Time Temp Pulse Resp B/P Pulse Ox O2 Delivery O2 Flow Rate FiO2 07/17/16 10:37 37.2 103 18 127/89 94 Room Air Intake and Output 07/16/16 07/16/16 07/17/16 Cumulative From/Thru 15:00 23:00 07:00 07/16/16 07:19 - 07/17/16 06:08 Intake Total 400 ml 200 ml 600 ml Balance 400 ml 200 ml 600 ml Intake Oral 400 ml 200 ml 600 ml # Voids 1 1 2 # Bowel Movements 0 0 Exam NAD, comfortably laying down on the bed no JVD, MMM, no LAD RRR, nl s1, s2 no mrg decreased BS, no w,c S,ND,NT,normoactive BS+ warm, 1+ pitting edema, pulses 2/2 IVs and Medications Medications Reviewed: Medications were reviewed in detail Lab and Diagnostics Result Diagram: 07/17/16 0530 07/17/16 0530 X-Rays, CTs and MRIs PROCEDURE: X-RAY CHEST, TWO VIEWS ([id number]) INDICATIONS: inadequate portable chest. cough TECHNIQUE: 2 views of the chest were acquired. COMPARISON: [facility], CR, XR CHEST 1VW (PORTABLE), 07/16/2016, 7: 58. [facility], CR, XR CHEST 1VW (PORTABLE), 06/20/2016, 5:39. [facility], CR, XR CHEST 2VW, 06/09/2016, 10:11. [facility], CR, XR CHEST 2VW, 04/26/2016, 16:10. FINDINGS: Surgical changes and devices: None. Lungs and pleura: The aeration of the lungs is similar to the previous exams. Mild interstitial prominence is present within the perihilar regions. There is mild pleural thickening identified along the left lateral chest wall. Mediastinum: Mediastinal contours are normal. Heart size is normal. There is aortic atherosclerosis. Bones and chest wall: No suspicious bony abnormalities. Soft tissues appear unremarkable. IMPRESSION: 1. Perihilar interstitial prominence is similar to previous exams and most likely represents chronic interstitial scarring/changes. A superimposed atypical interstitial pneumonia is difficult to exclude. 2. No consolidating pneumonia. Dictated by: Alfredo Cat M.D. on 07/16/2016 at 9:30 Approved by: Alfredo Cat M.D. on 07/16/2016 at 9:34 Assessment & Plan acute, active probable asthma/COPD exacerbation, atypical PNA, POA, pt has mild hypoxia, tachypnea, CXR didn't show any acute changes. resp PCR neg. no active wheezing/ crackles noted on exam. -today, pt clinically remained stable, wbc/PCT trended down, remained afebrile. -given her baseline obstructive lung dz, will do 5days course of azithromycin, will consider adding steroid if remains symptomatic -sputum cx if possible, -trend fever curve, procalcitonin -continue duonebs q4 prn -awaits strep Ag, legionella Ag disposition, POA, pt is being assessed by SW for oil heaterman placement, of note pt refused placement in last hospitalization in May -appreciate SW/CM input urinary incontinence, POA, chronic, denied dysuria, -get UA to rule out UTI, consider Oxybutinin loose stools, POA, exams were benign for surgical ix, no tenderness, -will obtain stool samples if pt develops again dispo:patient is medically stable, likely 1-2more days until finding out the place. diet:regular dvt ppx:LMWH Full Code Time spent 35min Raheel Rod MD Jul 17, 2016 11:15
--- NOTE | 2016-07-17 15:20 | NUR ---
Called and spoke with Sangita at [facility] and she is working on authorization with Will Bennett, she is also going to ask her Records Specialist about the possibility of admit under [facility] with Part B medicare. Sangita is also wondering about having [facility] look at patient as well in part of dual planning. Updated HEALTH COORDINATOR
[2016-07-17] MEDS: Albuterol-Ipratropium 3 mL Inhalation Solution NEB PRN (16:34)
--- NOTE | 2016-07-17 17:08 | NUR ---
spiritual care: pt request/follow several brief visits as pt ambulated, sat in lobby and room. Pt reported in detail about day's events and her coping/feelings. Pt shared her fear of convalescence and . Encouraged and affirmed pt in her thought processes karlie regarding coping with possible snf placement. pt brighter mood in pm as she recounted ways in which she is feeling better and demonstrating her mobility.
--- NOTE | 2016-07-17 18:29 | NUR ---
Activity patient walked in diaz several times throughout the shift, tolerated well. reported mild SOB at times. this evening c/o bilateral lower leg pain, PO Tylenol effective. continue to monitor.
--- NOTE | 2016-07-18 05:19 | NUR ---
Cough Pt had a coughing exacerbation after taking juice and crackers. The pt stated, ""I swallowed it down the wrong pipe" She is able to clear her airway on her own. Very strong cough Encouraged pt not to eat anymore crackers and juice for a bit Pt agrees
[2016-07-18 05:51] LABS: BASOPHILS % (AUTO) 0.3 % (0-3); EOSINOPHILS % (AUTO) 3.2 % (0-5); MONOCYTES % (AUTO) 15.3 % (4-12); Mean Corpuscular Hemoglobin 30.3 pg (27.0-35.0); Mean Corpuscular Volume 92.9 fL (81-100); NEUTROPHILS % (AUTO) 51.9 % (40-74); Platelet Count 201 bil/L (150-400)
[2016-07-18 06:02] VITALS: BP 122/80; PULSE 82; RESP 22; O2SAT 92
[2016-07-18 06:15] LABS: Magnesium 2.1 mg/dL (1.6-2.6); Phosphorus 2.5 mg/dL (2.5-4.9)
[2016-07-18 07:59] VITALS: BP 134/90; PULSE 94; RESP 21; O2SAT 93
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
[2016-07-18] MEDS: Fluticasone-Salmererol 250-50 Inhaler INHALATION SCH ×2 (11:48→20:30)
--- NOTE | 2016-07-18 15:08 | PCM.PNMED ---
Subjective Date of Service Jul 18, 2016 Subjective Patient denied any complaints Exam Vital Signs Vital Sign - Last Date Time Temp Pulse Resp B/P Pulse Ox O2 Delivery O2 Flow Rate FiO2 07/18/16 07:59 36.5 94 21 134/90 93 Room Air Intake and Output 07/17/16 07/17/16 07/18/16 Cumulative From/Thru 15:00 23:00 07:00 07/16/16 07:19 - 07/18/16 06:09 Intake Total 926 ml 200 ml 1726 ml Output Total 200 ml 200 ml Balance 726 ml 200 ml 1526 ml Intake Oral 676 ml 200 ml 1476 ml IV Total 250 ml 250 ml Output Urine Total 200 ml 200 ml # Voids 2 3 7 # Bowel Movements 0 0 Exam NAD, comfortably laying down on the bed no JVD, MMM, no LAD RRR, nl s1, s2 no mrg decreased BS, no w,c S,ND,NT,normoactive BS+ warm, 1+ pitting edema, pulses 2/2 IVs and Medications Medications Reviewed: Medications were reviewed in detail Lab and Diagnostics Result Diagram: 07/18/16 0535 07/18/16 0535 X-Rays, CTs and MRIs PROCEDURE: X-RAY CHEST, TWO VIEWS ([id number]) INDICATIONS: inadequate portable chest. cough TECHNIQUE: 2 views of the chest were acquired. COMPARISON: [facility], CR, XR CHEST 1VW (PORTABLE), 07/16/2016, 7: 58. [facility], CR, XR CHEST 1VW (PORTABLE), 06/20/2016, 5:39. [facility], CR, XR CHEST 2VW, 06/09/2016, 10:11. [facility], CR, XR CHEST 2VW, 04/26/2016, 16:10. FINDINGS: Surgical changes and devices: None. Lungs and pleura: The aeration of the lungs is similar to the previous exams. Mild interstitial prominence is present within the perihilar regions. There is mild pleural thickening identified along the left lateral chest wall. Mediastinum: Mediastinal contours are normal. Heart size is normal. There is aortic atherosclerosis. Bones and chest wall: No suspicious bony abnormalities. Soft tissues appear unremarkable. IMPRESSION: 1. Perihilar interstitial prominence is similar to previous exams and most likely represents chronic interstitial scarring/changes. A superimposed atypical interstitial pneumonia is difficult to exclude. 2. No consolidating pneumonia. Dictated by: Alfredo Cat M.D. on 07/16/2016 at 9:30 Approved by: Alfredo Cat M.D. on 07/16/2016 at 9:34 Assessment & Plan acute, active probable asthma/COPD exacerbation, atypical PNA, POA, pt has mild hypoxia, tachypnea, CXR didn't show any acute changes. resp PCR neg. no active wheezing/ crackles noted on exam. -today, pt clinically remained stable, wbc/PCT trended down, remained afebrile. -given her baseline obstructive lung dz, will do 5days course of azithromycin, will consider adding steroid if remains symptomatic -sputum cx if possible, -trend fever curve, procalcitoninm BCX 1+ likely contaminant -continue duonebs q4 prn -strep Ag, legionella Ag ngtd disposition, POA, pt is being assessed by SW for retirement placement, of note pt refused placement in last hospitalization in May -appreciate SW/CM input urinary incontinence, POA, chronic, denied dysuria, -get UA to rule out UTI, consider Oxybutinin loose stools, POA, exams were benign for surgical ix, no tenderness, -will obtain stool samples if pt develops again dispo:patient is medically stable, likely 1-2more days until finding out the place. diet:regular dvt ppx:LMWH Full Code Time spent 35min Raheel Rod MD Jul 18, 2016 15:08
--- NOTE | 2016-07-18 16:05 | NUR ---
spiritual care: follow up brief conversational visit. pt sitting in lobby. assuring pt of continued attention to her concerns, situation and hopes. expresses concerns (as noted in sw notes and elsewhere progress notes) about dying, frustration with getting older and fear of confinement in [facility] home. Discussed pt's recent fearful experience for which she sought medical help following being unable to care for self and breath comfortably. Pt reflected on details of past days and summarized: i guess i'm getting better.
--- NOTE | 2016-07-18 17:44 | NUR ---
pain Patient reported 9/10 pain throughout whole body. Administered 975mg Tylenol. Reassessed and patient stated that her pain was now a 2/10
[2016-07-18 22:24] VITALS: BP 117/68; PULSE 84; RESP 24; O2SAT 93
--- NOTE | 2016-07-18 22:49 | NUR ---
Activity Received report at 2004, pt up and walking about the hallways. Pt fixated on health, anxiety about dying. Encouraged pt to be positive and rest in bed for the evening. Pt pleasant and cooperative. Left room with call light at bed side.
[2016-07-19 06:02] VITALS: BP 125/79; PULSE 80; RESP 38; O2SAT 93
[2016-07-19] MEDS: Albuterol-Ipratropium 3 mL Inhalation Solution NEB PRN (08:34)
[2016-07-19 08:35] VITALS: PULSE 86; RESP 20; O2SAT 97
[2016-07-19] MEDS: Fluticasone-Salmererol 250-50 Inhaler INHALATION SCH (08:49)
[2016-07-19 13:14] VITALS: BP 145/67; PULSE 94; RESP 24; O2SAT 93
--- NOTE | 2016-07-19 14:07 | NUR ---
spiritual care: pt request relayed through staff conversational visit. pt repeated her disgust/dispair/restlessness. Considered discharge options and expressed understanding of staff's work to enable snf or afh placement. Pt continues to express fear of and confinement. Pt reported on walking, but also feeling tired and "like i'm dying" Pt agreeable to receive a copy of a poem we discussed and expressed appreciation for care. continuing to follow
--- NOTE | 2016-07-19 14:18 | PCM.PNMED ---
Subjective Date of Service Jul 19, 2016 Subjective pt is ambulating hallway. denied any complaints looked very anxious intermittently reassurance was made Exam Vital Signs Vital Sign - Last Date Time Temp Pulse Resp B/P Pulse Ox O2 Delivery O2 Flow Rate FiO2 07/19/16 08:35 86 20 97 Room Air 07/19/16 06:02 36.8 125/79 Intake and Output 07/18/16 07/18/16 07/19/16 Cumulative From/Thru 15:00 23:00 07:00 07/16/16 07:19 - 07/18/16 19:36 Intake Total 400 ml 2126 ml Output Total 200 ml Balance 400 ml 1926 ml Intake Oral 400 ml 1876 ml IV Total 250 ml Output Urine Total 200 ml # Voids 3 10 # Bowel Movements 0 Exam NAD, comfortably laying down on the bed no JVD, MMM, no LAD RRR, nl s1, s2 no mrg decreased BS, no w,c S,ND,NT,normoactive BS+ warm, 1+ pitting edema, pulses 2/2 IVs and Medications Medications Reviewed: Medications were reviewed in detail Lab and Diagnostics Result Diagram: 07/18/16 0535 07/18/16 0535 X-Rays, CTs and MRIs PROCEDURE: X-RAY CHEST, TWO VIEWS ([id number]) INDICATIONS: inadequate portable chest. cough TECHNIQUE: 2 views of the chest were acquired. COMPARISON: [facility], CR, XR CHEST 1VW (PORTABLE), 07/16/2016, 7: 58. [facility], CR, XR CHEST 1VW (PORTABLE), 06/20/2016, 5:39. [facility], CR, XR CHEST 2VW, 06/09/2016, 10:11. [facility], CR, XR CHEST 2VW, 04/26/2016, 16:10. FINDINGS: Surgical changes and devices: None. Lungs and pleura: The aeration of the lungs is similar to the previous exams. Mild interstitial prominence is present within the perihilar regions. There is mild pleural thickening identified along the left lateral chest wall. Mediastinum: Mediastinal contours are normal. Heart size is normal. There is aortic atherosclerosis. Bones and chest wall: No suspicious bony abnormalities. Soft tissues appear unremarkable. IMPRESSION: 1. Perihilar interstitial prominence is similar to previous exams and most likely represents chronic interstitial scarring/changes. A superimposed atypical interstitial pneumonia is difficult to exclude. 2. No consolidating pneumonia. Dictated by: Alfredo Cat M.D. on 07/16/2016 at 9:30 Approved by: Alfredo Cat M.D. on 07/16/2016 at 9:34 Assessment & Plan acute, active probable asthma/COPD exacerbation, atypical PNA, POA, pt has mild hypoxia, tachypnea, CXR didn't show any acute changes. resp PCR neg. no active wheezing/ crackles noted on exam. -today, pt clinically remained stable, wbc/PCT trended down, remained afebrile. -given her baseline obstructive lung dz, will do 5days course of azithromycin, will consider adding steroid if remains symptomatic -sputum cx if possible, -trend fever curve, procalcitoninm BCX 04/03+ likely contaminant -continue duonebs q4 prn -strep Ag, legionella Ag ngtd disposition, POA, pt is being assessed by SW for middle or intermediate school principal placement, of note pt refused placement in last hospitalization in May -appreciate SW/CM input urinary incontinence, POA, chronic, denied dysuria, -get UA to rule out UTI, consider Oxybutinin loose stools, POA, exams were benign for surgical ix, no tenderness, -will obtain stool samples if pt develops again dispo:patient is medically stable, pending dispo due to placement diet:regular dvt ppx:LMWH Full Code Time spent 35min Raheel Rod MD Jul 19, 2016 13:13
[2016-07-19] MEDS ORDERED: ZIT250 PO (14:47)
--- NOTE | 2016-07-19 14:50 | PCM.DIMED ---
Discharge Instructions Date of Service Jul 19, 2016 Dates of Hospitalization Jul 16, 2016 at 11:56 Discharge Diagnosis Discharge Diagnosis probable COPD exacerbation Deconditioned state Medication Instructions He can take azithromycin for 2 more days Diet No restrictions Activity No restrictions Call your provider Shortness of breath Patient Instructions You were hospitalized with difficulty of breathing, likely associated with your COPD. Please note that [facility] going [facility] facility given your home situation. Instruction for SNF> Please continue 2days of Azithromycin to finish 5days course Please use O2 supplement, nebulizer treatment as needed Since patient had mild excerbation, steroid was not started during hospitalization, patient remained clinically stable Follow-up plan Follow up with her doctor in 2 weeks Follow-up Provider: Adam Lane MD Follow-up with PCP in: 2 weeks Raheel Rod MD Jul 19, 2016 14:50
--- NOTE | 2016-07-19 15:02 | NUR ---
Social work Note - Discharge ASSISTANT TECHNICIAN received call from Sangita at [facility] that pt was approved for 14 days for skilled PT. Sangita asked that Pt agree to not smoking, not parking her van at their facility and to actively participate with d/c planning with [facility]. ASSISTANT TECHNICIAN met with pt - pt is alert, oriented. She states that she is willing to go to [facility] today. She is willing to comply with [facility]'s request. She admits that she is sad to be loosing her independence but admits that she is not well enough to continue living in her van. Pt states that she is dying - She denies any suicidal ideation. She states she is sad about getting older and knows that her COPD can not be cured. She sees going to a SNF as a sign that she is closer to . ASSISTANT TECHNICIAN provided support, provided encouragement that pt is actually working on getting stronger, to improve her quality of life. Plan: To [facility] ([facility]) by cabulance. HUGH Cox
--- NOTE | 2016-07-19 15:46 | NUR ---
spiritual care: follow up conversation as pt reflects on discharge plans. emotions and details
--- NOTE | 2016-07-19 15:58 | NUR ---
Discharge MV here to [facility] pt [id number]. IV d/c'd intact, pt left by WC, belongings in hand. Report called to Sangita at [facility]
--- NOTE | 2016-07-20 16:54 | PCM.DC.MED ---
Discharge Summary Date of Service Jul 19, 2016 Dates of Hospitalization Date of Hospital Admission Jul 16, 2016 at 11:56 Date of Discharge: Jul 19, 2016 Providers: Admitting Physician: Raheel Allen MD Primary Care Physician: Adam Lane MD Attending Physician: Raheel Allen MD Diagnosis at Time of Discharge Diagnosis at Time of Discharge probable COPD exacerbation Deconditioned state Procedures XRay, CTs & MRIs PROCEDURE: X-RAY CHEST, TWO VIEWS ([id number]) INDICATIONS: inadequate portable chest. cough TECHNIQUE: 2 views of the chest were acquired. COMPARISON: [facility], CR, XR CHEST 1VW (PORTABLE), 07/16/2016, 7: 58. [facility], CR, XR CHEST 1VW (PORTABLE), 06/20/2016, 5:39. [facility], CR, XR CHEST 2VW, 06/09/2016, 10:11. [facility], CR, XR CHEST 2VW, 04/26/2016, 16:10. FINDINGS: Surgical changes and devices: None. Lungs and pleura: The aeration of the lungs is similar to the previous exams. Mild interstitial prominence is present within the perihilar regions. There is mild pleural thickening identified along the left lateral chest wall. Mediastinum: Mediastinal contours are normal. Heart size is normal. There is aortic atherosclerosis. Bones and chest wall: No suspicious bony abnormalities. Soft tissues appear unremarkable. IMPRESSION: 1. Perihilar interstitial prominence is similar to previous exams and most likely represents chronic interstitial scarring/changes. A superimposed atypical interstitial pneumonia is difficult to exclude. 2. No consolidating pneumonia. Dictated by: Alfredo Cat M.D. on 07/16/2016 at 9:30 Approved by: Alfredo Cat M.D. on 07/16/2016 at 9:34 Brief History HPI obtained on 07/16 A 76 year old female, undomicilled, asthma, COPD, and HTN, frequent ED visits with SOB, last hospitalization with COPD exacerbation in May came to ED p/w bilaterall leg swelling, SOB, covered in stool, request for NH placement. Patient stated that she could not tolerate living in her van, sided to come to the hospital. Patient stated that last week, she went to the hospital at [facility], with urinary incontinence. Patient was briefly hospitalized and discharged to her place. Patient stated that she has baseline chronic difficulty breathing, using round inhalers twice a day, spray inhalers as needed. Patient thinks that she is always short of breath, denied any cough or phlegm. For the past 3 days, patient started having brown loose stools, smelly , no blood, 2-3 times per day, thinks that it is getting worse. Denied any abdominal pain or nausea or vomiting, has relatively good appetite. Patient was covered in feces when she was presented to ED. pt stated that she will not want to go back to her place, wanting to go to care facility. ED VS, BP 120s, mildly [id number], tachypneic to 18-22, 94% on RA, CXR showed chronic interstitial scarring/changes, no consolidation. labs showed mildly elevated wbc, procalcitonin. upon interview on [facility], patient was mildly agitated, but was breathing comfortably, no use accessory muscle, denied any pain, dysuria uregency but frequent urination with incontinence which is chronic problems for years. ROS: denied fever, chills, recent sick contacts, chest pain, palpitation. Hospital Course acute problems probable asthma/COPD exacerbation, atypical PNA, POA, pt has mild hypoxia, tachypnea, CXR didn't show any acute changes. resp PCR neg. no active wheezing/ crackles noted on exam. pt was empirically started on 5days course of azithromycin, remained stable on respiratory condition. deemed stable for d/c Disposition, since patient has limited living condition(lives in a van), pt required more stable place, eventually pt was accepted by [facility] Exam Vital Signs (Last) Date Time Temp Pulse Resp B/P Pulse Ox O2 Delivery O2 Flow Rate FiO2 07/19/16 13:14 36.7 94 24 145/67 93 Room Air Exam NAD, comfortably laying down on the bed no JVD, MMM, no LAD RRR, nl s1, s2 no mrg decreased BS, no w,c S,ND,NT,normoactive BS+ warm, 1+ pitting edema, pulses 2/2 Test 07/16/16 07:35 07/16/16 07:50 07/18/16 05:35 Troponin T 0.010ug/L (0.0-0.011) Pro-B-Type Natriuretic Peptide 90.73pg/mL (0-738) Hold Zaragoza Top Tube Received (Received) White Blood Count 7.9th/mm3 (3.8-10.1) Red Blood Count 5.09mil/mm3 (3.90-5.20) Hemoglobin 15.4g/dL (12.0-15.6) Hematocrit 47.3% (35.0-46.0) Mean Corpuscular Volume 92.9fL (81-100) Mean Corpuscular Hemoglobin 30.3pg (27.0-35.0) Mean Corpuscular Hemoglobin Concent 32.6% (32.0-37.0) Red Cell Distribution Width 13.9% (12.3-15.4) Platelet Count 201bil/L (150-400) Neutrophils (%) (Auto) 51.9% (40-74) Lymphocytes (%) (Auto) 29.0% (14-46) Monocytes (%) (Auto) 15.3% (4-12) Eosinophils (%) (Auto) 3.2% (0-5) Basophils (%) (Auto) 0.3% (0-3) Sodium Level 141mEq/L (134-144) Potassium Level 4.0mEq/L (3.5-5.2) Chloride Level 102mEq/L (97-108) Carbon Dioxide Level 24mmol/L (18-29) Blood Urea Nitrogen 9mg/dL (8-27) Creatinine 0.50mg/dL (0.57-1.00) Estimat Glomerular Filtration Rate 172mL/min (>59) Glucose Level 111mg/dL (60-99) Calcium Level 8.3mg/dL (8.5-10.1) Phosphorus Level 2.5mg/dL (2.5-4.9) Magnesium Level 2.1mg/dL (1.6-2.6) Total Bilirubin 0.5mg/dL (0.0-1.2) Aspartate Amino Transf (AST/SGOT) 22U/L (0-50) Alanine Aminotransferase (ALT/SGPT) 49U/L (0-32) Alkaline Phosphatase 77U/L (25-165) Total Protein 5.5g/dL (6.4-8.4) Albumin 3.6g/dL (3.4-5.0) Procalcitonin 0.15ng/mL (0.00-0.08) Discharge Medications Discharge Medications Azithromycin (Zithromax) 250 Mg Tablet 250 MG PO DAILY Prescribed by: RAHEEL ALLEN MD Fluticasone/Salmeterol (Advair 250-50 Diskus) 60 Puff/Inh Disk 1 PUFF INHALATION BID Prescribed by: BERNICE NAVARRETE MD As needed Albuterol HFA (Proair HFA) 8.5 Gm Hfa.aer.ad 2 PUFFS INHALATION Q4H PRN PRN For Shortness of Breath (Reported) Additional med instructions He can take azithromycin for 2 more days Followup Plan Disposition: home Follow-up plan Follow up with her doctor in 2 weeks Discharge Diet: No restrictions Discharge Activity: No restrictions Patient Instructions You were hospitalized with difficulty of breathing, likely associated with your COPD. Please note that you are going to Care Home facility given your home situation. Instruction for SNF> Please continue 2days of Azithromycin to finish 5days course Please use O2 supplement, nebulizer treatment as needed Since patient had mild excerbation, steroid was not started during hospitalization, patient remained clinically stable Follow-up Provider: Adam Lane MD Follow-up with PCP in: 2 weeks Time spent 65min Raheel Allen MD Jul 19, 2016 15:43
== END 2016-07-19 16:00 ==
LOC: SED 06:43 → MPC 11:56
PROVIDERS: ADMIT Internal Medicine; ATTEND Internal Medicine
DX: J44.9 Chronic obstructive pulmonary disease, unspecified (principal); J45.909 Unspecified asthma, uncomplicated; R09.02 Hypoxemia; M62.81 Muscle weakness (generalized); I10 Essential (primary) hypertension; M54.9 Dorsalgia, unspecified; M79.89 Other specified soft tissue disorders; R32 Unspecified urinary incontinence; F17.210 Nicotine dependence, cigarettes, uncomplicated; Z59.0 Homelessness; Z88.0 Allergy status to penicillin; Z88.8 Allergy status to other drugs, medicaments and biological substances
CPT/HCPCS: 36415; 71010; 71020; 80053; 83735; 83880; 84100; 84145; 84484; 85025; 87040; 87077; 87633; 87804; 93005; 94640; 94664; 96365; 96366; 96367; 97161; 99285; G0378; J0456; J0696; J1650; J7613; J7620

== ENCOUNTER 2016-09-18 11:26 | Emergency (ER) | payer MEDICARE, MEDICAID ==
[~2016-09-18] VITALS: Ht 162.6 cm; Wt 96.4 kg
[~2016-09-18 11:26] MED LIST changes: -FLUT1DIS5 IH; -PRE20 PO; +ZIT250 PO
--- NOTE | 2016-09-18 11:42 | ED.REPORT ---
HPI-General Illness Date of Service Sep 18, 2016 ED Provider: Gerry Dugan DO Patient is a 76 year old female with a history of COPD and hypertension who presents to the ED via EMS because the police stated she was unable to care for herself. Per the police, the patient was covered in her own stool and urine. Patient states that she was asking someone to help her call a taxi and thinks they thought she needed help and called the police. She states now that she's here though, she could use a breathing treatment and having whole body aches. Nursing Notes Stated Complaint: UNABLE TO CARE FOR SELF Nursing Notes Reviewed: Yes Allergies: Coded Allergies: Penicillins (Verified Allergy, Unknown, 07/14/16) Sulfa (Sulfonamide Antibiotics) (Verified Allergy, Unknown, 07/14/16) Scheduled Albuterol HFA (Proair HFA) 8.5 Gm Hfa.aer.ad 2 PUFFS INHALATION Q4H Azithromycin (Zithromax) 250 Mg Tablet 250 MG PO DAILY Fluticasone/Salmeterol (Advair 250-50 Diskus) 60 Puff/Inh Disk 1 PUFF INHALATION BID Scheduled PRN Albuterol HFA (Proair HFA) 8.5 Gm Hfa.aer.ad 2 PUFFS INHALATION Q4H PRN PRN For Shortness of Breath General Time Seen by MD: 11:41 Chief Complaint Other (unable to care for herself) Hx Obtained From: Patient Arrived By: Ambulance Sudden in Onset?: No Severity: Current: Moderate Recent Healthcare: No recent hospitalization, Recent doctor visit Similar Sx Previous: Yes Past Medical History Past Medical History Notes: PCP: Dr. Ariana Miller Past Medical History Chronic hip and back pain Pneumonia with hospitalization. Reports: Asthma, COPD, Hypertension Past Surgical History Stomach surgery. Right leg surgery. Hiatal hernia Family History non-contributory Smoking History Current Every Day Smoker Social History Was living at [facility] a few days ago. Currently living in [place]. Alcohol Use: Denies alcohol use Drug Use: Denies drug use Other Social History: Lives in [facility], Homeless Ambulatory Status Wheelchair Review of Systems body aches Full Review of Systems Constitutional: Denies: Chills, Fever Respiratory: Reports: Non-productive cough Skin: Denies Rash Complete sys rev & neg: except as marked. Physical Exam Vital Signs Vital Signs Date Time Temp Pulse Resp B/P Pulse Ox O2 Delivery O2 Flow Rate FiO2 09/18/16 15:31 36.8 92 19 110/76 92 Room Air 2 09/18/16 15:15 36.8 92 19 110/76 92 Room Air 09/18/16 13:22 Nasal Cannula 2 09/18/16 12:24 99 88 Room Air 09/18/16 12:24 100 09/18/16 12:03 36.9 115/95 86 Room Air General/Constitutional: Awake, Alert Appearance / Presentation: Positive: Obese Head / Eyes: Atraumatic, Normocephalic, PERRL, EOMI Respiratory / Chest: Atraumatic, No respiratory distress Wheezing / Retractions: Positive: Wheezing mild coarse rhonchi Cardiovascular: Heart rate NL, Regular rhythm, Heart sounds NL Skin: Atraumatic, Color NL, No rash, Warm, Dry Neurologic: Oriented X3, Speech NL, No motor deficits, No sensory deficits Psychiatric: Affect NL, Mood NL Re-Eval/Medical Decision Med Decision/Clinical Course Patient presents initially without a real medical complaints just concern from the [place] that she was disheveled. She received a DuoNeb and has had an unremarkable visit. She is stable. She has chronic hypoxia due to COPD. Albuterol will be refilled. She states the rest of her medications and wheelchair are not ovenells. The plan will be to transfer her to [facility] via Cab. Time of Eval: 13:12 Re-Evaluation/Progress Note: Discussed plan for cab ride to [facility] and discharge. Patient understands and agrees to the plan. All questions addressed. Counseled Regarding: Diagnosis, Lab results, Need for follow-up, When/why to return to ED Discharge & Departure Primary Impression: COPD (chronic obstructive pulmonary disease) COPD type: unspecified COPD Qualified Code: J44.9 - Chronic obstructive pulmonary disease, unspecified Additional Impression: Homelessness Disposition: Home Discharge Condition All VS Reviewed: Yes Condition: Stable Additional Instructions: Take albuterol as needed. Continue her other medications as planned. Return to the ER as needed for any concerning symptoms. Referrals: Adam Lane MD (PCP) Scribe Attestation Portions of this note were transcribed by Naheed Tellez. I, Dr. Lady Dela Cruz personally performed the history, physical exam and medical decision-making; I reviewed and confirmed the accuracy of the information in the transcribed note. Signed by: Alana Paul, 09/18/16 and 1216 copies to: Adam Lane MD, Timothy S DO Sep 18, 2016 11:42 Lolita Tellez Sep 18, 2016 12:00
[2016-09-18 12:03] VITALS: BP 115/95; O2SAT 86
[2016-09-18] MEDS ORDERED: Albuterol-Ipratropium 3 mL Inhalation Solution NEB ONE (12:10)
--- NOTE | 2016-09-18 12:13 | NUR ---
PLACEMENT REVIEW-- Spoke with Sangita acute coordinator at [facility] and patient was discharged from their facility to [facility] in [place]. Patient has been given 30 day notice from [facility] in her short stay there she has had multiple issues and has not been compliant. [facility] has also stated the are unable to accept patient back, she was becoming non compliant and not following their smoking policy. Updated ED ACCOUNTING SUPPORT SPECIALIST
[2016-09-18 12:24] VITALS: PULSE 100; PULSE 99; O2SAT 88
[2016-09-18] MEDS ORDERED: ALBU8.5H2 INHALATION (14:10)
[2016-09-18 15:15] VITALS: BP 110/76; PULSE 92; RESP 19; O2SAT 92
[2016-09-18 15:31] VITALS: BP 110/76; PULSE 92; RESP 19; O2SAT 92
--- NOTE | 2016-09-18 16:33 | NUR ---
ED BOAT DETAILER Note D/A/P: BOAT DETAILER spoke with Yessica at [facility] regarding Pt's discharge back to [facility]. Yessica asked if Pt was being sent back to remain at [facility] or if she had been discharged from that facility and was only being returned to [facility] her belongings. BOAT DETAILER explained that she had not been involved in Pt's care today but agreed to look into it. Pt's chart was unclear and so BOAT DETAILER attempted to reach [facility] by phone several times with no success. BOAT DETAILER reported this information to Yessica. Jodee Ledbetter, DORINA, AAC
== END 2016-09-18 15:32 | disposition home or self-care (01) ==
LOC: EDBD 11:26 → SED 11:26
DX: J44.9 Chronic obstructive pulmonary disease, unspecified (principal); I10 Essential (primary) hypertension; J45.909 Unspecified asthma, uncomplicated; F17.200 Nicotine dependence, unspecified, uncomplicated; Z88.0 Allergy status to penicillin; Z88.2 Allergy status to sulfonamides; Z59.0 Homelessness; Z87.01 Personal history of pneumonia (recurrent)
CPT/HCPCS: 94664; 99283; J7620

== ENCOUNTER 2016-09-30 07:56 | Observation (INO) | payer MEDICARE, MEDICAID ==
[~2016-09-30] VITALS: Ht 157.5 cm; Wt 97.8 kg
[2016-09-30 07:52] VITALS: BP 129/79; PULSE 97; RESP 22; O2SAT 95
[2016-09-30 07:57] VITALS: BP 143/103; PULSE 93; RESP 20; O2SAT 91
[2016-09-30] MEDS ORDERED: 0.9% Sodium Chloride 1,000 ML IV ONE (07:58)
[2016-09-30] MEDS ORDERED: Albuterol-Ipratropium 3 mL Inhalation Solution NEB ONE (08:10)
[2016-09-30] MEDS ORDERED: predniSONE 20 mg Tablet PO ONE (08:10)
--- NOTE | 2016-09-30 08:13 | ED.REPORT ---
HPI-General Illness Date of Service Sep 30, 2016 ED Provider: Félix Walters MD Patient is a 76 year old female with a hx of HTN, COPD, and frequent ED visits who presents to the ED via EMS stating that she can no longer care for herself. She complains of lower extremity swelling, trouble walking, chronic R hip pain, and incontinence. Her complaints are chronic and she denies any new symptoms. She left [facility] a week ago and has been out of her medications (including Prednisone and oxygen) since. She has been living in her van which has no fuel and a battery and has only been eating peanut butter since she left the senior care. Nursing Notes Stated Complaint: INCONTINENT Chief Complaint: General Complaint Nursing Notes Reviewed: Yes Allergies: Coded Allergies: Penicillins (Verified Allergy, Unknown, 07/14/16) Sulfa (Sulfonamide Antibiotics) (Verified Allergy, Unknown, 07/14/16) Scheduled Albuterol HFA (Proair HFA) 8.5 Gm Hfa.aer.ad 2 PUFFS INHALATION Q4H Azithromycin (Zithromax) 250 Mg Tablet 250 MG PO DAILY Fluticasone/Salmeterol (Advair 250-50 Diskus) 60 Puff/Inh Disk 1 PUFF INHALATION BID Scheduled PRN Albuterol HFA (Proair HFA) 8.5 Gm Hfa.aer.ad 2 PUFFS INHALATION Q4H PRN PRN For Shortness of Breath General Time Seen by MD: 07:54 Chief Complaint Multip medical complaints Hx Obtained From: Patient Arrived By: Ambulance Past Medical History Past Medical History Notes: PCP: Dr. Ariana Miller Past Medical History Chronic hip and back pain Pneumonia with hospitalization. Reports: Asthma, COPD, Hypertension Past Surgical History Stomach surgery. Right leg surgery. Hiatal hernia Family History non-contributory Smoking History Current Every Day Smoker Social History Was living at [facility], left a few days ago. Currently living in [place]. Alcohol Use: Denies alcohol use Drug Use: Denies drug use Other Social History: Lives in senior care, Homeless Ambulatory Status Wheelchair Review of Systems Full Review of Systems Constitutional: Denies: Chills, Fever Cardiovascular: Denies: Chest pain GI: Denies: Abdominal pain, Constipation, Diarrhea, Vomiting Musculoskeletal: Reports: Extremity swelling, Joint pain Neurologic: Reports: Bladder dysfunction, Problem walking, Denies: Headache Complete sys rev & neg: except as marked. Physical Exam Vital Signs Vital Signs Date Time Temp Pulse Resp B/P Pulse Ox O2 Delivery O2 Flow Rate FiO2 09/30/16 08:20 103 24 90 Room Air 09/30/16 07:57 37.1 93 20 143/103 91 Room Air Initial VS: Reviewed Neck: Full range of motion Skin: Warm, Dry Psychiatric: Mood/affect normal, Behavior normal, Normal thought content General/Constitutional: Awake, Alert Poorly kept, clothing dirty, soaked in own urine Head / Eyes: Atraumatic, Normocephalic Respiratory / Chest: Atraumatic Decreased air movement throughout. Cardiovascular: Heart rate NL, Regular rhythm, Heart sounds NL Abdomen: Soft, Non-tender Neurologic: Oriented X3, Speech NL No lateralizing neurologic findings. Strength 5/5 in bilat lower extremities. Interpretation & Diagnostics Lab Results Interpretation Result Diagram: 09/30/16 0929 09/30/16 0929 Test 09/30/16 09:29 09/30/16 09:55 White Blood Count 9.2th/mm3 (3.8-10.1) Red Blood Count 5.38mil/mm3 (3.90-5.20) Hemoglobin 16.0g/dL (12.0-15.6) Hematocrit 48.3% (35.0-46.0) Mean Corpuscular Volume 89.8fL (81-100) Mean Corpuscular Hemoglobin 29.7pg (27.0-35.0) Mean Corpuscular Hemoglobin Concent 33.1% (32.0-37.0) Red Cell Distribution Width 13.5% (12.3-15.4) Platelet Count 230bil/L (150-400) Neutrophils (%) (Auto) 56.8% (40-74) Lymphocytes (%) (Auto) 31.1% (14-46) Monocytes (%) (Auto) 8.7% (4-12) Eosinophils (%) (Auto) 2.1% (0-5) Basophils (%) (Auto) 0.3% (0-3) Sodium Level 141mEq/L (134-144) Potassium Level 4.1mEq/L (3.5-5.2) Chloride Level 106mEq/L (97-108) Carbon Dioxide Level 17mmol/L (18-29) Blood Urea Nitrogen 14mg/dL (8-27) Creatinine 0.44mg/dL (0.57-1.00) Estimat Glomerular Filtration Rate 199mL/min (>59) Glucose Level 144mg/dL (60-99) Calcium Level 8.4mg/dL (8.5-10.1) Total Bilirubin 0.3mg/dL (0.0-1.2) Aspartate Amino Transf (AST/SGOT) 22U/L (0-50) Alanine Aminotransferase (ALT/SGPT) 10U/L (0-32) Alkaline Phosphatase 73U/L (25-165) Total Protein 6.1g/dL (6.4-8.4) Albumin 3.7g/dL (3.4-5.0) Prothrombin Time 10.3sec (8.1-12.5) Prothromb Time International Ratio 0.96ratio Lactic Acid Level 1.6mmol/L (0.4-2.0) X-Ray Chest Interpretation Chest Xray Interpretation: IMPRESSION: 1. No acute cardiopulmonary abnormality. 2. Depth of inspiration is somewhat limited compared to some prior exams, accentuating interstitial markings which are prominent at the lung bases bilaterally as noted on previous studies. Some degree of chronic interstitial lung disease is suspected. Dictated by: Alistair Juarez M.D. on 09/30/2016 at 9:41 Approved by: Alistair Juarez M.D. on 09/30/2016 at 9:45 View: AP & lat Interpretation / Wet Read by: Interpret - Radiologist Re-Eval/Medical Decision Med Decision/Clinical Course Patient is a 76 year old female with a hx of HTN, COPD, and frequent ED visits who presents to the ED via EMS stating that she can no longer care for herself. She complains of lower extremity swelling, trouble walking, chronic R hip pain, and incontinence. Her complaints are chronic and she denies any new symptoms. She left [facility] a week ago and has been out of her medications (including Prednisone and oxygen) since. She has been living in her van which has no fuel and a battery and has only been eating peanut butter since she left the senior care. Here in the emergency department the patient appears disheveled, she is soaked in her own urine though she is alert and awake/answer questions appropriately. There are no signs of trauma and she has no lateralizing neurologic deficits. She has markedly decreased air movement throughout both lung crane and appears in mild respiratory distress. She is afebrile with stable vital signs and an oxygen saturation of 91% on room air while at rest however she drops down to the 80s with ambulation. The patient was treated with [id number] DuoNeb and oral prednisone for presumed COPD exacerbation. Laboratory studies notable as below: cbc unremarkable hematocrit 48.3 lactic acid 1.6 bicarb 17 electrolytes unremarkable coag studies nL Chest x-ray: IMPRESSION: 1. No acute cardiopulmonary abnormality. 2. Depth of inspiration is somewhat limited compared to some prior exams, accentuating interstitial markings which are prominent at the lung bases bilaterally as noted on previous studies. Some degree of chronic interstitial lung disease is suspected. At this time, the patient is clearly unable to adequately care for herself and I do not feel that she is safe for discharge. Moreover she is experiencing a COPD exacerbation, does not have access to her medications or home oxygen desaturates into the 80s with ambulation. She has been started on steroids and I additionally added azithromycin. I feel that she requires admission for treatment of her acute COPD exacerbation as well as further evaluation by social work/case management as she likely requires placement in a long-term care facility. Patient was discussed with admitting hospitalist and transferred in stable condition. Time of Eval: 08:16 Re-Evaluation/Progress Note: Patient's O2 sat dropped into the 80's on room air while ambulating. Discussed plan for admission. Patient understands and agrees with plan. All questions addressed at this time. Consultation : Referral / Consult Name: Alanis Montenegro MD Consulted With: Hospitalist Call Returned at: 11:08 Candy Decorator: Will see patient, Agrees with eval, Agrees with plan, Accepts admit Note: Discussed pt's case. Accepts admit. Counseled Regarding: Diagnosis, Lab results, Need for admission Discharge & Departure Primary Impression: COPD with acute exacerbation Additional Impressions: Hypoxia Urinary incontinence Urinary Incontinence type: unspecified incontinence Qualified Code: R32 - Unspecified urinary incontinence Homelessness Total self-care deficit Disposition: ADMITTED TO HOSPITAL Discharge Condition All VS Reviewed: Yes Condition: Stable Referrals: Adam Lane MD (PCP) Scribe Attestation Portions of this note were transcribed by Linsey Liz. I, Dr. Walters personally performed the history, physical exam and medical decision-making; I reviewed and confirmed the accuracy of the information in the transcribed note. Signed by: Linsey Liz 09/30/16, 1110 copies to: Adam Lane MD, Beck O MD Sep 30, 2016 08:13 LINSEY LIZ Sep 30, 2016 08:20 LINSEY LIZ Sep 30, 2016 08:20
[2016-09-30 08:20] VITALS: PULSE 103; RESP 24; O2SAT 90
[2016-09-30] MEDS ORDERED: Ondansetron 2 mg/mL 2 mL Inj IVPUSH PRN ×2 (08:50→12:00)
[2016-09-30] MEDS ORDERED: Alum-Mag Hydrox-Simeth 30 mL Suspension PO PRN ×2 (08:50→12:00)
--- NOTE | 2016-09-30 09:47 | DRSVH ---
PROCEDURE: X-RAY CHEST, TWO VIEWS ([id number]) INDICATIONS: cough TECHNIQUE: 2 views of the chest were acquired. COMPARISON: 07/16/2016 FINDINGS: Surgical changes and devices: None. Lungs and pleura: No pleural effusions or pneumothorax. Interstitial prominence at the lung bases, l eft greater than right, again unchanged. No focal consolidation. Mediastinum: Mediastinal contours are normal. Heart size is normal. Aortic calcifications. Bones and chest wall: No suspicious bony abnormalities. Soft tissues appear unremarkable. IMPRESSION: 1. No acute cardiopulmonary abnormality. 2. Depth of inspiration is somewhat limited compared to some prior exams, accentuating interstitial m arkings which are prominent at the lung bases bilaterally as noted on previous studies. Some degree o f chronic interstitial lung disease is suspected. Dictated by: Alistair Juarez M.D. on 09/30/2016 at 9:41 Approved by: Alistair Juarez M.D. on 09/30/2016 at 9:45
[2016-09-30 10:04] LABS: BASOPHILS % (AUTO) 0.3 % (0-3); EOSINOPHILS % (AUTO) 2.1 % (0-5); MONOCYTES % (AUTO) 8.7 % (4-12); Mean Corpuscular Hemoglobin 29.7 pg (27.0-35.0); Mean Corpuscular Volume 89.8 fL (81-100); NEUTROPHILS % (AUTO) 56.8 % (40-74); Platelet Count 230 bil/L (150-400)
[2016-09-30 10:17] LABS: INR 0.96 ratio
[2016-09-30] MEDS ORDERED: Polyethylene Glycol (PEG) 17 Gm Powder PO PRN (12:00)
[2016-09-30 13:10] VITALS: BP 127/71; PULSE 74; RESP 19; O2SAT 91
[2016-09-30] MEDS ORDERED: Albuterol 2.5 mg/3 mL Inhalation Solution NEB PRN (14:13)
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
[2016-09-30] MEDS ORDERED: Albuterol-Ipratropium 3 mL Inhalation Solution NEB PRN (14:35)
[2016-09-30] MEDS: Fluticasone-Salmererol 250-50 Inhaler INHALATION SCH ×2 (14:42→22:05)
[2016-09-30 15:31] LABS: APPEARANCE,URINE CLEAR (CLEAR,HAZY); COLOR,URINE YELLOW (YELLOW); OCCULT BLOOD,URINE NEGATIVE (NEGATIVE); UROBILINOGEN,URINE NORMAL (NORMAL)
[2016-09-30] MEDS: Sodium Chloride LOK Flush 10 mL Syringe IVFLUSH SCH (16:30)
[2016-09-30] MEDS ORDERED: IBUP200C PO (16:54)
[2016-09-30] MEDS ORDERED: ACET325T51 PO (16:54)
--- NOTE | 2016-09-30 18:30 | NUR ---
Admit to [facility] Pt. admitted to [facility] at 1315 in stable condition. MD soon arrived for admit assessment. Admit and med req completed. Pt. c/o leg pain. Motrin administered, will continue to monitor. Ate a very large lunch, but then had 2 episodes of diarrhea afterwards. Encouraged pt. to eat slower. Pt. assisted with a shower and is now resting comfortably in bed.
[2016-09-30] MEDS: HYDROcodone-APAP 5-325 mg Tablet PO PRN (19:11)
[2016-09-30 19:30] VITALS: PULSE 96; RESP 22; O2SAT 92
[2016-09-30 22:05] VITALS: BP 116/74; PULSE 81; RESP 20; O2SAT 93
[2016-10-01] MEDS: Sodium Chloride LOK Flush 10 mL Syringe IVFLUSH SCH ×3 (00:30→16:16)
[2016-10-01 02:32] VITALS: BP 113/67; PULSE 68; RESP 18; O2SAT 95
[2016-10-01] MEDS: HYDROcodone-APAP 5-325 mg Tablet PO PRN ×2 (03:27→14:05)
--- NOTE | 2016-10-01 04:38 | NUR ---
Pain/Oxygen/Urine Output hip/legs pain well managed with Scheduled Ibuprofen and PRN [place]. Pt desats during asleep. put pt on 1L O2 via NC with SPO2 92-95%. Pt continue again after couple hrs of 1L (88-90%). increased O2 to 2L with SPO2 92-95%. Pt has high OLGA score. CPOX is on while asleep. pt void x2 =175ml. pt was also incontinent of urine. bladder scanned post void and found 31 ml of post void residual. urine output was concentrated and cosme in color. encouraged pt to drink more fluid. offered fresh water and cranberry juice. pt has been pleasant and cooperative with care. spent most of the night asleep. care continue.
[2016-10-01 06:02] VITALS: BP 108/66; PULSE 82; RESP 16; O2SAT 95
[2016-10-01 07:30] VITALS: PULSE 76; RESP 20; O2SAT 92
[2016-10-01] MEDS: Fluticasone-Salmererol 250-50 Inhaler INHALATION SCH ×2 (07:36→20:25)
--- NOTE | 2016-10-01 08:43 | NUR ---
Status 0730 aware of pt complaints of R hip and L knee pain/discomfort. MD assessed. Per pt, pain has been improved since admit but still has a dull ache. Will await imaging and PT eval per . Respiratory status stable. Will continue to monitor. Addendum: 10/01/16 at 0845 by JEAN MARIE SCHAEFER RN MD aware of no IV access as pt refuses
--- NOTE | 2016-10-01 10:42 | DRSVH ---
PROCEDURE: X-RAY RIGHT HIP COMPLETE, MINIMUM TWO VIEWS ([id number]) INDICATIONS: knee swelling pain TECHNIQUE: 2 views of the hip were acquired. COMPARISON: [facility], , HIP COMP MIN 2VW (RT), 12/23/2007, 14:46. FINDINGS: Bones: No fractures or dislocations. No suspicious bony lesions. The visualized pelvic ring appear s intact. Right hip degenerative change. Soft tissues: No suspicious soft tissue calcifications or masses. IMPRESSION: No acute fractures. If there is clinical concern for occult fracture then noncontrast CT would be recommended for further evaluation. Right hip degenerative change. Dictated by: Luis Eduardo Rajput M.D. on 10/01/2016 at 10:33 Approved by: Luis Eduardo Rajput M.D. on 10/01/2016 at 10:34
--- NOTE | 2016-10-01 10:43 | DRSVH ---
PROCEDURE: X-RAY LEFT HIP COMPLETE, MINIMUM TWO VIEWS ([id number]) INDICATIONS: knee swelling pain TECHNIQUE: 2 views of the hip were acquired. COMPARISON: [facility], , HIP COMP MIN 2VW (LT), 12/23/2007, 14:48. FINDINGS: Bones: No fractures or dislocations. No suspicious bony lesions. The visualized pelvic ring appear s intact. Left hip degenerative change less than seen in the right. Soft tissues: No suspicious soft tissue calcifications or masses. IMPRESSION: No acute fractures. If there is concern for radiographically occult fracture then noncont rast CT would be recommended for further evaluation. Dictated by: Luis Eduardo Rajput M.D. on 10/01/2016 at 10:34 Approved by: Luis Eduardo Rajput M.D. on 10/01/2016 at 10:35
--- NOTE | 2016-10-01 10:43 | DRSVH ---
PROCEDURE: X-RAY LEFT KNEE, ONE OR TWO VIEWS ([id number]) INDICATIONS: knee swelling pain TECHNIQUE: 2 views of the knee were acquired. COMPARISON: None. FINDINGS: Bones: No fractures or dislocations. No suspicious bony lesions. Soft tissues: No significant joint effusion. No suspicious soft tissue calcifications. IMPRESSION: No acute fractures. No significant joint effusion. Dictated by: Luis Eduardo Rajput M.D. on 10/01/2016 at 10:35 Approved by: Luis Eduardo Rajput M.D. on 10/01/2016 at 10:36
--- NOTE | 2016-10-01 10:45 | NUR ---
Case Management: BRITTNI given and explained to pt. Anayeli JARRELL RN
[2016-10-01 11:17] VITALS: BP 125/83; PULSE 81; RESP 18; O2SAT 91
--- NOTE | 2016-10-01 13:31 | NUR ---
Social Work-initial assessment/ readiness for discharge: Data:See initial assessment. Pt is a 76 y/o female who was admitted on 09/30/16 for COPD per H&P. Pt's insurance is [employer] and [employer] and PCP is Adam Lane MD. EMR reviewed. Pt's readmission score is 3. YESSENIA met with pt at bedside, SW role explained. Pt is alert and oriented x3. Pt resides in her van where she remains independent with ADLs. Pt uses a fww at baseline and occasionally uses her home O2. Pt has no HH history and has been to [facility] in the past. Pt has no fdc care insurance or VA benefits. SW discussed DPOA/advanced directive, pt confirms she has completed this, SW encouraged a copy to be brought in.Pt is very well known to SW team on the floor and in ED. SW team has attempted one time to place pt at facility and this resulted in pt leaving hospital [place]. SW has also gotten pt into [facility] in the past and recently pt had a place at [facility]. [facility] unwilling to take pt back. Pt chose to leave [facility] because she did not like it to go back to her van. Placement at this time point will likely not happen from the hospital. MD aware of the above information. Pt is aware and is agreeable to returning to her van. YESSENIA has left message with [facility] for inspection manager to continue to work on placement for pt in the community and also APS worker Yessica. Pt plans to get herself to her van at discharge. YESSENIA Provided pt with discharge planning checklist booklet and provided phone number on the white board in room. YESSENIA will continue to follow. Assessment:Pt who resides at a in Van. Plan:Pt to likely discharge back to her van when medically stable. YESSENIA has left message with [facility] and also APS worker. YESSENIA will continue to follow. DORINA Delgadillo Addendum: 10/01/16 at 1339 by AME SCOTT SS Amended: Links added.
--- NOTE | 2016-10-01 16:30 | NUR ---
US notified that pt has not been seen by US yet today as order was not stat but that US states they will see pt later this afternoon. ok with this, no new orders/changes to orders. Per am rounds ok with pt getting up OOB. Will continue to monitor. Respiratory status stable. SOBE with exertion but no chest pain, sats stable on 1L o2 89-93%. Addendum: 10/01/16 at 1834 by JEAN MARIE SCHAEFER RN notified that US has still yet to see pt.
--- NOTE | 2016-10-01 16:54 | PCM.PNMED ---
Subjective Date of Service Oct 01, 2016 Subjective pt c/o Left knee pain and leg swelling compared to right side, also c/o bilateral hip pain, which is limiting her ability to walk, stated that she has been WC bound, Exam Vital Signs Vital Sign - Last Date Time Temp Pulse Resp B/P Pulse Ox O2 Delivery O2 Flow Rate FiO2 10/01/16 16:06 Supplement Oxygen 10/01/16 11:17 36.5 81 18 125/83 91 1.00 Intake and Output 09/30/16 09/30/16 10/01/16 Cumulative From/Thru 15:00 23:00 07:00 09/30/16 13:10 - 10/01/16 06:01 Intake Total 430 ml 776 ml 1206 ml Output Total 200 ml 175 ml 375 ml Balance 230 ml 601 ml 831 ml Intake Oral 430 ml 776 ml 1206 ml IV Total 0 ml 0 ml Output Urine Total 200 ml 175 ml 375 ml # Bowel Movements 3 0 3 Exam NAD, comfortable no JVD, MMM, no LAD RRR nls1 s2 no mrg CTAB no w,c S,ND,NT,BS+ motor 5/5 throughout, mild effusion on left knee, FROM, nontender, bilateral hip j: FROM on passive, active movement, nontender, IVs and Medications Medications Reviewed: Medications were reviewed in detail Lab and Diagnostics Result Diagram: 09/30/1692809/30/16928 Assessment & Plan # Exacerbation of chronic back and right hip pain, knee pain, Xray of hip, knee unremarkable for acute dz, likely chronic arthritis. -Tylenol or Vicodin as needed -will try tramadol 50mg bid -appreciate PT eval to optimize dispo, assess gait -will get LLE doppler US to rule out dvt # COPD/asthma, has not been on inhalers for at least the past week and oxygen for possibly a few weeks - Received DuoNeb and steroids in the emergency department - Resume her usual inhalers and oxygen - Chest x-ray with no infiltrate and she gives no symptoms for pneumonia or acute bronchitis, reported to have received Zithromax in the emergency department that at this point I will not continue # Worsening of chronic urinary frequency - Check UA, culture if indicated # Disposition look for a different assisted living facility or [facility], unlikely given multiple attempts AMA in the past, likely back to [place] tomorrow. Time spent 35min Raheel Rod MD Oct 01, 2016 16:53
[2016-10-01 17:50] VITALS: BP 116/71; PULSE 82; RESP 18; O2SAT 92
[2016-10-01 22:06] VITALS: BP 113/57; PULSE 87; RESP 18; O2SAT 93
[2016-10-02] MEDS: Sodium Chloride LOK Flush 10 mL Syringe IVFLUSH SCH ×3 (00:30→16:30)
[2016-10-02] MEDS: HYDROcodone-APAP 5-325 mg Tablet PO PRN ×4 (01:17→23:38)
--- NOTE | 2016-10-02 04:25 | NUR ---
Pain/oxygen/US hip/legs pain well managed with Scheduled Ibuprofen, Tramadol, and PRN [place]. Pt reported SOB with exertion but no SOB at rest, sats stable on 1L o2 89-93%. pt has not been see by the US. called around 0930, but no one is available. will continue to monitor.
[2016-10-02 05:32] VITALS: BP 118/72; PULSE 80; RESP 16; O2SAT 94
[2016-10-02] MEDS: Fluticasone-Salmererol 250-50 Inhaler INHALATION SCH ×2 (07:28→20:33)
[2016-10-02] MEDS ORDERED: TRAM-14 PO (08:19)
[2016-10-02] MEDS ORDERED: ACET-2766 PO (08:19)
[2016-10-02] MEDS ORDERED: POLY17PO6 PO (08:19)
[2016-10-02] MEDS ORDERED: NITR100 PO (08:20)
--- NOTE | 2016-10-02 09:02 | NUR ---
Status Pt seen by this am. Continues to be incontinent but per pt this is not abnormal for her. MD to start oral antibitoic. Pt c/o nausea with am breakfast. No emesis. Pt states this has been going on a few days but she has been able to eat. notified via [employer] page at 0900. Will continue to monitor. Addendum: 10/02/16 at 1044 by JEAN MARIE SCHAEFER RN nausea Pt given ODT zofran and states nausea has not worsened. Mild but "still there". C/o right abdomen mild discomfort but transient. Abdomen soft and no tenderness on palpation. Pt denies constipation and is + for flatus. VSS. notified. Will monitor ability to tolerate lunch.
[2016-10-02] MEDS ORDERED: Ondansetron 8 mg ODT Tablet PO ONE (09:10)
[2016-10-02 09:56] VITALS: BP 128/84; PULSE 68; RESP 26; O2SAT 91
[2016-10-02] MEDS: Nitrofurantoin Monohyd-Macrocryst 100 mg Capsule PO SCH ×2 (10:31→20:33)
--- NOTE | 2016-10-02 10:53 | PCM.DIMED ---
Discharge Instructions Date of Service Oct 02, 2016 Dates of Hospitalization Sep 30, 2016 at 11:24 Discharge Diagnosis Discharge Diagnosis unstable living condition chronic degenerative joint disease on bilateral hip and knees Cystitis due to E.coli Medication Instructions Additional med instructions Please try Tramadol 50mg twice a day and tylenol 625mg twice a day for your knee and hip pain, Please continue to use inhalers as you are using at home Please continue Macrobid for 5days to treat your bladder infection Diet Discharge Diet: No restrictions Patient Instructions Patient Instructions You were hospitalized due to leg swelling, pain, possible COPD flare. You were monitored in the hospital, remained stable. You were also found to have bladder infection, treated with antibiotics. Please follow up with your primary doctor in 2weeks for follow up Follow-up Provider: Adam Lane MD Follow-up with PCP in: 2 weeks Raheel Rod MD Oct 02, 2016 10:53
--- NOTE | 2016-10-02 11:35 | NUR ---
Spoke with Adenike Ferrell CM at [facility] [phone] X: [phone], she is available to help if any additional needs come up for discharge. Updated AIR DRILL OPERATOR
[2016-10-02 11:41] VITALS: PULSE 81; RESP 28; O2SAT 91
--- NOTE | 2016-10-02 13:28 | NUR ---
Status MD notified that pt up with physical therapy. Mobility is stable but pt desats to low 80s w/o O2 while ambulating. SOB with exertion. Pt also continues to complain of nausea w/o abdominal pain and did have 1 episode of small emesis following physical therapy. Zofran had been given without worsening of nausea but no significant improvement. Not able to tolerate much of her lunch. Pt continues to deny constipation. MD notified. Will discuss O2 needs and monitor GI symptoms per MD.
--- NOTE | 2016-10-02 14:03 | DRSVH ---
PROCEDURE: US VEINOUS LEG DUPLEX UNILATERAL, LEFT INDICATIONS: leg swelling r/o dvt TECHNIQUE: Real-time imaging, as well as color and pulse Doppler interrogation, were performed of the lower extr emity deep veins from the inguinal ligament to the popliteal fossa. COMPARISON: None. FINDINGS: The deep veins are normally compressible, and free of intraluminal thrombus. Color and pu lse Doppler demonstrate normal phasic intraluminal flow. There is normal augmentation response to di stal compression maneuver. IMPRESSION: No deep venous thrombosis identified within the left lower extremity. Dictated by: Jeremy Schneider Jayme Interpreted: Hernan Ferrer MD on 10/02/2016 at 11:51 Approved by: Hernan Ferrer M.D. on 10/02/2016 at 14:00
--- NOTE | 2016-10-02 14:11 | NUR ---
spiritual care: pt request pt known to puppet master from previous hospitalizations. pt with bright affect, described details of health issues including current orthopedic concerns--hip pain and possible treatments. Pt reported her breathing and copd is better and she used animated, energetic style throughout. Pt shared account of recent experiences that are significant to her spiritually and emotionally. Pt not concerned, as she has been in the past with placement. pt agreeable for visit from caring tariff compiler later in day
--- NOTE | 2016-10-02 14:59 | NUR ---
Spoke with [facility] and patient is currently open with them, her equipment through [facility] is still at [facility]. [facility] will spanish moss picker equipment tomorrow and bring it here to the hospital for patient. Verified with BUZZSAW OPERATOR HELPER that patient is able to return to [place] and this is where she will be staying with the oxygen equipment. Updated BUZZSAW OPERATOR HELPER
--- NOTE | 2016-10-02 15:35 | NUR ---
Social Work-readiness for discharge: Data:EMR Reviewed. Pt is on day 2 of hospitalization for COPD per H&P. Pt is likely medically stable tomorrow. YESSENIA spoke with PT who states pt is fine to return to van, but pt will need O2. YESSENIA requested that UR specialist call [employer] who pt had received O2 through in the past to determine status of O2. YESSENIA updated by UR specialist the [employer] confirms pt's O2 concentrator is at [facility]. [employer] plans to sisal picker concentrator tomorrow and bring this to the hospital for pt to take back to her van. YESSENIA also spoke with [facility] who informed SW that pt has refused services in the past,so they do not have a current case open with her. MD has been updated and is agreeable of discharge likely tomorrow. SW will continue to follow. Assessment:Pt who will return to Van. Plan:Pt to discharge back to Van when medically stable. [employer] to drop off pt's O2 concentrator tomorrow to her room. SW will continue to follow. DORINA Delgadillo
--- NOTE | 2016-10-02 15:45 | PCM.PNMED ---
Subjective Date of Service Oct 02, 2016 Subjective pt c/o bilateral knee pain, hip pain, noted hypoxia on ambulation, reportedly low80%, >90% [id number] NC at rest pt denied increasing SOB, cough, sputum. pt refused neb tx per staffs. O2 will be set up at home tomorrow Exam Vital Signs Vital Sign - Last Date Time Temp Pulse Resp B/P Pulse Ox O2 Delivery O2 Flow Rate FiO2 10/02/16 11:41 81 28 91 Nasal Cannula 1.00 10/02/16 09:56 36.9 128/84 Intake and Output 10/01/16 10/01/16 10/02/16 Cumulative From/Thru 15:00 23:00 07:00 09/30/16 13:10 - 10/02/16 06:54 Intake Total 950 ml 450 ml 2606 ml Output Total 125 ml 500 ml Balance 950 ml 325 ml 2106 ml Intake Oral 950 ml 450 ml 2606 ml IV Total 0 ml Output Urine Total 125 ml 500 ml # Voids 3 2 5 # Bowel Movements 0 3 Exam NAD, comfortable no JVD, MMM, no LAD RRR nls1 s2 no mrg CTAB no w,c S,ND,NT,BS+ motor 5/5 throughout, mild effusion on left knee, FROM, nontender, bilateral hip j: FROM on passive, active movement, nontender, IVs and Medications Medications Reviewed: Medications were reviewed in detail Lab and Diagnostics Result Diagram: 09/30/1692809/30/16928 Assessment & Plan # Exacerbation of chronic back and right hip pain, knee pain, Xray of hip, knee unremarkable for acute dz, likely chronic arthritis. LE doppler negative of dvt. -Tylenol or Vicodin as needed -continue tramadol 50mg bid, tylenol bid -appreciate PT, cleared for d/c to home #chronic COPD/asthma, has not been on inhalers for at least the past week and oxygen for possibly a few weeks, noted baseline chronic hypoxia, down to low80% with exertion. -patient be benefit from chronic O2 tx which will be set up by tomorrow - Received DuoNeb and steroids in the emergency department, continue Advair, proair as needed - O2 supplement as needed. - Chest x-ray with no infiltrate and she gives no symptoms for pneumonia or acute bronchitis, reported to have received Zithromax in the emergency department that at this point I will not continue # Worsening of chronic urinary frequency, UA positive E.Coli -started Macrobid for 5D # Disposition: home(Van) tomorrow with O2 setup. Time spent 35min Raheel Rod MD Oct 02, 2016 15:45
--- NOTE | 2016-10-02 16:29 | NUR ---
Status MD notified that pt continues to c/o feelings of nausea when asked, decreased appetite. Some right abdominal pain with slight discomfort on palpation. Per MD, to hold evening dose of tramadol and continue to monitor. Nurs communication for med hold ordered. pt up OOB for dinner. Does continue to desat to 80% without O2 on ambulation. No reports of SOB at rest. Addendum: 10/02/16 at 1631 by JEAN MARIE SCHAEFER RN Pt refused neb treatments today, MD aware.
--- NOTE | 2016-10-02 16:36 | NUR ---
spiritual care; follow up conversational visit. pt shared her current medical concerns (orthopedic pain) and was agreeable for visit from caring mixer wet pour. Addendum: 10/02/16 at 1638 by YESSENIA SY CM pt rec lengthy conversational visit from Brii Lua who reported pleasant conversational tone.
[2016-10-02 18:00] VITALS: BP 141/88; PULSE 69; RESP 20; O2SAT 92
--- NOTE | 2016-10-02 18:34 | NUR ---
Message left for director of claims requesting in person director of claims for tomorrow am if possible [id number] for MD assessment Addendum: 10/02/16 at 1835 by JEAN MARIE SCHAEFER RN disregard, wrong pt
[2016-10-02 22:00] VITALS: BP 120/74; PULSE 90; RESP 19; O2SAT 92
[2016-10-03] MEDS: Sodium Chloride LOK Flush 10 mL Syringe IVFLUSH SCH ×4 (00:44→23:59)
[2016-10-03 02:42] VITALS: BP 118/68; PULSE 88; RESP 17; O2SAT 90
--- NOTE | 2016-10-03 05:21 | NUR ---
Nausea/Resp. Status Pt. denies nausea this shift, given snacks upon request, tolerated well, on continues pulse ox monitor and supplemental oxygen via NC, SOB only with exertion, encouraged deep breathing, Alert and verbal, uses call light for help, SBA to BSC, hourly rounds, will continue to monitor.
[2016-10-03] MEDS: HYDROcodone-APAP 5-325 mg Tablet PO PRN ×2 (06:19→19:40)
[2016-10-03 06:27] VITALS: BP 119/65; PULSE 77; RESP 19; O2SAT 93
[2016-10-03] MEDS ORDERED: cefTRIAXone Inj 2,000 MG in Dextrose 5% Minibag Plus 50 ML IV SCH (07:40)
[2016-10-03] MEDS: Fluticasone-Salmererol 250-50 Inhaler INHALATION SCH ×2 (07:58→19:39)
[2016-10-03] MEDS: Polyethylene Glycol (PEG) 17 Gm Powder PO SCH ×2 (07:58→19:37)
[2016-10-03] MEDS: Pantoprazole 20 mg ER24 Tablet PO SCH ×2 (07:58→19:39)
[2016-10-03] MEDS: Nitrofurantoin Monohyd-Macrocryst 100 mg Capsule PO SCH ×2 (09:06→19:39)
[2016-10-03 10:42] VITALS: BP 108/60; PULSE 75; RESP 19; O2SAT 91
[2016-10-03 15:30] VITALS: BP 119/80; PULSE 84; RESP 22; O2SAT 94
--- NOTE | 2016-10-03 16:17 | NUR ---
Social Work: Continued d/c planning Data: Pt is on day 3 of hospitalization. EMR reviewed. Pt discussed in rounds, states pt likely medically stable either today or tomorrow. told SPRINKLER INSTALLER that pt told him that she is willing to go back to [facility]. Per SPRINKLER INSTALLER note, pt previously was not. SPRINKLER INSTALLER informed by UR specialist that Raheem went to [facility] and that the concentrator there does not belong to them, they provided her with a portable concentrator and the concentrator at [facility] is a plug in only provided by [facility]. [facility]ga told UR specialist they will not provide pt with O2 or O2 equipment if she returns to her van, but will continue providing this if she returns to [facility]. SPRINKLER INSTALLER met with pt at bedside, SPRINKLER INSTALLER asked pt "The hospitalist told me that you are hoping to go back to [facility]". Pt declines this stating "I was told I'm not welcome there" SPRINKLER INSTALLER asked why and who told her, she said she did not know. SPRINKLER INSTALLER said she would call [facility] to check. Pt states she wouldn't go back there even if she was welcome. SPRINKLER INSTALLER asked why and pt would not go into it. SPRINKLER INSTALLER called [facility] at [phone], there was only a busy signal. SPRINKLER INSTALLER will attempt to call again on 10/04/16. Assessment: Pt with assistance at baseline. Plan: SPRINKLER INSTALLER will communicate with [facility] regarding if they are able to take pt back or not. [facility] will provide O2 at d/c if pt remains at [facility], not if she discharges to her van. [facility] cannot provide additional equipment to pt with the current concentrator missing. SPRINKLER INSTALLER will continue to follow. DORINA Browning
--- NOTE | 2016-10-03 16:25 | NUR ---
Called [facility] and spoke with them about providing oxygen while she is living in her van, they are unable to provide any equipment unless patient is going to reside in a stable living situation and they do not feel the van is appropriate at this time. The equipment at [facility] belongs to them. Spoke with David at [facility] again and the [facility] of the [facility] several months ago and no one is sure where this actually happened. David is working on contacting patient to sort this out but with current equipment checked out they can not provide any additional equipment. Updated PLANT WORKER
--- NOTE | 2016-10-03 17:33 | NUR ---
spiritual care: follow up/pt request conversational visit. pt requested assistance with numbers for motels to arrange for short term (2 days or so) housing at her own expense. Provided phone numbers and encouragement, pt making these phone calls independently.
--- NOTE | 2016-10-03 19:22 | NUR ---
Activity Pt. up out of bed with standby assist with FWW. Desats to mid 80s on RA. with activity. Pt. has been wearing oxygen at 2 L. On cont. pulse ox.
[2016-10-03 19:45] VITALS: BP 116/71; PULSE 73; RESP 19; O2SAT 92
--- NOTE | 2016-10-03 21:38 | PCM.PNMED ---
Subjective Date of Service Oct 03, 2016 Subjective pt was mildly nauseated intermittently no vomiting denied abdominal pain, had SU3rfwk ago, therefore started bowel regimen Exam Vital Signs Vital Sign - Last Date Time Temp Pulse Resp B/P Pulse Ox O2 Delivery O2 Flow Rate FiO2 10/03/16 19:45 36.7 73 19 116/71 92 Nasal Cannula 2.00 Intake and Output 10/02/16 10/02/16 10/03/16 Cumulative From/Thru 15:00 23:00 07:00 09/30/16 13:10 - 10/03/16 06:27 Intake Total 650 ml 710 ml 3966 ml Output Total 950 ml 1450 ml Balance 650 ml -240 ml 2516 ml Intake Oral 650 ml 710 ml 3966 ml IV Total 0 ml Output Urine Total 950 ml 1450 ml # Voids 3 1 9 # Bowel Movements 3 Exam NAD, comfortable no JVD, MMM, no LAD RRR nls1 s2 no mrg CTAB no w,c S,ND,NT,BS+ IVs and Medications Medications Reviewed: Medications were reviewed in detail Lab and Diagnostics Result Diagram: 09/30/1692809/30/16928 Assessment & Plan #mild nausea, developed since adm, controlled with zofran, could be from ileus or med induced-tramadol vs ibuprofen or related to UTI, Exam showed benign abdomen -stopped ibuprofen -continue bowel regimen, monitor sx # Exacerbation of chronic back and right hip pain, knee pain, Xray of hip, knee unremarkable for acute dz, likely chronic arthritis. LE doppler negative of dvt. -Tylenol or Vicodin as needed -continue tramadol 50mg bid, tylenol bid -appreciate PT, cleared for d/c to home #chronic COPD/asthma, has not been on inhalers for at least the past week and oxygen for possibly a few weeks, noted baseline chronic hypoxia, down to low80% with exertion. -patient will needs home O2 tx - Received DuoNeb and steroids in the emergency department, continue Advair, proair as needed - O2 supplement as needed. - Chest x-ray with no infiltrate and she gives no symptoms for pneumonia or acute bronchitis, reported to have received Zithromax in the emergency department that at this point I will not continue # Worsening of chronic urinary frequency, UA positive E.Coli -started Macrobid for 5D # Disposition: tomorrow likely to adult family home with O2 Time spent 35min Raheel Rod MD Oct 03, 2016 21:38
[2016-10-04 02:18] VITALS: BP 116/73; PULSE 70; RESP 16; O2SAT 92
[2016-10-04] MEDS: HYDROcodone-APAP 5-325 mg Tablet PO PRN ×2 (02:56→14:17)
[2016-10-04 06:12] VITALS: BP 125/76; PULSE 71; RESP 18; O2SAT 94
--- NOTE | 2016-10-04 06:14 | NUR ---
Respiratory Pt continuously desat into high 80s during the night sometimes due to noncompliance with NC. It could take several minutes for sats to come back above 90 once NC was placed back correctly. Also bumped up to 3L and pt sats are 91-94.
[2016-10-04] MEDS: Sodium Chloride LOK Flush 10 mL Syringe IVFLUSH SCH ×3 (08:30→21:02)
[2016-10-04] MEDS: Pantoprazole 20 mg ER24 Tablet PO SCH ×2 (08:55→20:52)
[2016-10-04] MEDS: Nitrofurantoin Monohyd-Macrocryst 100 mg Capsule PO SCH ×2 (08:55→20:52)
[2016-10-04 08:56] VITALS: BP 105/67; PULSE 85; RESP 16; O2SAT 91
[2016-10-04] MEDS: Fluticasone-Salmererol 250-50 Inhaler INHALATION SCH ×2 (08:56→20:52)
[2016-10-04] MEDS: Polyethylene Glycol (PEG) 17 Gm Powder PO SCH ×2 (08:56→20:30)
--- NOTE | 2016-10-04 11:01 | NUR ---
Social Work: Continued d/c planning REDUCTION FURNACE OPERATOR called [employer], was given the director's phone number: Sancho Michael [phone]. REDUCTION FURNACE OPERATOR left a voice mail requesting a call back. REDUCTION FURNACE OPERATOR will continue to follow. DORINA Browning
--- NOTE | 2016-10-04 13:44 | NUR ---
spiritual care; follow up conversational visit. pt in good spirits, described and demonstrated her resourcefulness (in untangling cords) and described her intentions for discharge. Pt is making plans for her immediate activities following discharge including transportation, haircut, other personal care, lodging, managing her return to her van and mechanical needs. Pt detailed in her planning, memory and shared positive outlook in terms of medical care and progress. Dora
--- NOTE | 2016-10-04 14:19 | NUR ---
Resp Pt sats 91-93% on 3L. C/o pain 5/10 in left hip. 2 tabs norco given. Pt states 3/10 is "comfy" pain level for her. Pt ambulated in hallway with PT this afternoon. Changed bedding. Pt states that she may take a shower and get cleaned up later but was not interested at this time. Care conts
--- NOTE | 2016-10-04 15:37 | PCM.PNMED ---
Subjective Date of Service Oct 04, 2016 Subjective Still hypoxic without O2 at rest,and with exertion. Discussed with social service they are still working on a safe discharge plan, in part as patient needs O2 at discharge. Exam Vital Signs Vital Sign - Last Date Time Temp Pulse Resp B/P Pulse Ox O2 Delivery O2 Flow Rate FiO2 10/04/16 14:26 Nasal Cannula 2.00 10/04/16 08:56 37.0 85 16 105/67 91 Intake and Output 10/03/16 10/03/16 10/04/16 Cumulative From/Thru 15:00 23:00 07:00 09/30/16 13:10 - 10/04/16 06:12 Intake Total 550 ml 640 ml 5156 ml Output Total 750 ml 150 ml 2350 ml Balance -200 ml 490 ml 2806 ml Intake Oral 550 ml 640 ml 5156 ml IV Total 0 ml 0 ml Output Urine Total 750 ml 150 ml 2350 ml # Voids 3 1 13 # Bowel Movements 3 Exam Skin; warm and dry CV; no murmur regular Lungs, decreased breath sound, no wheezing noted, clear GI; soft and non acute. Lab and Diagnostics Result Diagram: 09/30/1692809/30/16928 Assessment & Plan #mild nausea, developed since adm, controlled with zofran, could be from ileus or med induced-tramadol vs ibuprofen or related to UTI, Exam showed benign abdomen -stopped ibuprofen -continue bowel regimen, monitor sx # Exacerbation of chronic back and right hip pain, knee pain, poa, improving, -Xray of hip, knee unremarkable for acute dz, likely chronic arthritis. -LE doppler negative of dvt. -Tylenol or Vicodin as needed -continue tramadol 50mg bid, tylenol bid -appreciate PT, cleared for d/c to home #chronic COPD/asthma, poa, stable -has not been on inhalers for at least the past week and oxygen for possibly a few weeks, noted baseline chronic hypoxia, down to low80% with exertion. -patient will needs home O2 tx but we are unable to arrange, - Received DuoNeb and steroids in the emergency department, continue Advair, proair as needed - O2 supplement as needed. - Chest x-ray with no infiltrate and she gives no symptoms for pneumonia or acute bronchitis, reported to have received Zithromax in the emergency department that at this point I will not continue -continue to arrange O2 at discharge, multiple barriers, see Social Service notes, for today I will order resp to try to arrange thru "norco" # acute UTI, poa resolved -Worsening of chronic urinary frequency, UA positive E.Coli -started Macrobid for 5D # Disposition: tomorrow likely to adult family home with O2 if we can arrange and patient agrees Rhett Talbert MD Oct 04, 2016 15:37
--- NOTE | 2016-10-04 16:17 | NUR ---
Home Oxygen Spoke with Sadaf at [facility] regarding providing oxygen for this patient. Unfortunately at this time due to the pt's living situation and unreliable track record with previous home care companies, they are unwilling to provide oxygen equipment at this time. Addendum: 10/04/16 at 1622 by TAJ HERNANDEZ [facility] [address] May notified.
--- NOTE | 2016-10-04 16:20 | NUR ---
Demanding a Taxi Pt ambulated to senior front end developer without oxygen demanding a taxi be called. Gown soaked with urine. O2 sats 76%. Returned pt to room, provided new gown and brief and bed linen. Calmed pt down and reviewed that she was not well enough to discharge without oxygen. Pt agreed.
[2016-10-04 16:33] VITALS: BP 111/71; PULSE 84; RESP 19; O2SAT 94
--- NOTE | 2016-10-04 19:20 | NUR ---
Refusal of O2 Pt refusing to use continuous O2 and CPOX, despite education. Sats at 92% with 3L O2, 80's without, and 70's without O2 and ambulating. Physician paged as an FYI. Addendum: 10/04/16 at 1940 by CARLOS TELLO RN Pt found CPOX machine annoying (I chose to leave it on beeping, told her it would stop beeping if she put the CPOX back on) and after 15min, she chose to put the CPOX and O2 back on so she could hear the [employer] game. Will continue to monitor.
[2016-10-05 05:46] VITALS: BP 118/68; PULSE 71; RESP 22; O2SAT 94
--- NOTE | 2016-10-05 06:01 | NUR ---
Care Cooperative with care over night but continues to suggest she is going AMA in the morning if she is not discharged. Patient encouraged several times to not go AMA and educated on hypoxia and her need to be on O2. Currently agreeable to staying. Will continue to encourage and educate as needed.
[2016-10-05] MEDS: Sodium Chloride LOK Flush 10 mL Syringe IVFLUSH SCH ×3 (07:55→20:46)
--- NOTE | 2016-10-05 08:14 | NUR ---
Social Work: Continued d/c planning / Late note Data: Pt is on day 4 of hospitalization, in rounds states pt medically stable for d/c. O2 and supplies is still an issue as [facility] will not supply her more equipment until previous equipment is returned, which pt does not have any longer. [facility] has refused to supply pt with O2 or supplies if she returns to her van. Pt is currently going back and forth between wanting to go to [facility] or not, told KICKING MACHINE OPERATOR she did not want to, told she was willing. KICKING MACHINE OPERATOR called pt's [email or web address] [phone] or another if pt is welcome to go back there as we have not officially heard. Was given the phone number for the director, Quinton Michael, , no answer, voice mail left requesting a phone call back regarding if pt is welcome to return there. KICKING MACHINE OPERATOR called pt's Will Ferrell [phone]. Discussed pt with her and the O2 problem. Will MEYER did not have any other ideas other than to try a different home O2 company and to make sure pt has all other medications she needs at d/c. KICKING MACHINE OPERATOR called pt's Home and transportation worker Demi Marshall [phone], no answer, left voice mail. Demi will be back in the office on 10/07/16. KICKING MACHINE OPERATOR spoke with hospitalist, hospitalist states they will order RT to attempt to set up portable O2 with [facility] for pt, as this is the last O2 company in the area. KICKING MACHINE OPERATOR will continue to follow. Assessment: Homeless pt who is independent at baseline. Plan: RT to work on portable O2 and concentrator with [facility]. KICKING MACHINE OPERATOR awaiting to hear back from [facility] regarding if pt is welcome back. -If [facility] can take pt back and [facility] can continue supplying O2 and concentrator, pt can return there. -If pt refuses to return to [facility] and is welcome there, she will have to discharge to her van, even if O2 cannot be supplied. -If [facility] cannot take pt back and pt is willing to go to a different [facility], case management will continue to work on placement for her. -If [facility] cannot take pt back and pt is not willing to go to a different [facility], pt will have to discharge to her van, juanita if O2 cannot be supplied. DORINA Browning
[2016-10-05] MEDS: Polyethylene Glycol (PEG) 17 Gm Powder PO SCH ×2 (08:30→20:36)
[2016-10-05] MEDS: Pantoprazole 20 mg ER24 Tablet PO SCH ×2 (09:00→20:36)
[2016-10-05] MEDS: Nitrofurantoin Monohyd-Macrocryst 100 mg Capsule PO SCH ×2 (09:00→20:37)
[2016-10-05] MEDS: Fluticasone-Salmererol 250-50 Inhaler INHALATION SCH ×2 (09:01→20:37)
--- NOTE | 2016-10-05 10:51 | NUR ---
Behavior/O2 Saturation Pt. demanding wheelchair throughout shift stating, "I'm not able to walk and I need a wheelchair. I can't go to the movies or grocery shopping or do anything without a wheelchair". Explained to pt. that CM will be assisting her with discharge needs and that this RN will keep her informed. CM notified of pt. request for wheelchair. Pt. stated understanding but was found up in hallway very agitated, demanding wheelchair from other staff. Pt. guided back to bed, bed alarm on for safety. Pt. currently resting in bed watching TV. Frequent rounding being performed. Pt. O2 saturation maintained in low 90s on 3L via NC when at rest. O2 saturation decreased to 80s on 3L via NC when pt. assisted to bedside chair. Pt. c/o nausea and dyspnea with activity but able to speak in full sentences. Addendum: 10/05/16 at 1204 by SYLVIA CLAYTON RN Pt. sitting up in bed speaking with CM. Pt. had removed NC. O2 saturation 86% on RA. Pt instructed to replace NC. O2 saturation low 90s on 3L via NC.
--- NOTE | 2016-10-05 12:24 | NUR ---
Social Work: Multidisciplinary Rounds / Continued d/c planning Data: Pt discussed in rounds. MD states pt continues to be medically stable for d/c if she has O2. states that RT worked on [employer] for O2 and supplies and that they have also declined to work with pt. O2 and supplies are unavailable to pt if she discharges to her van, all 3 local companies have refused to serve pt as they do not see this as a safe option. SELLING UNDERWRITER spoke with director of [facility], Quinton Michael, . He states they cannot take pt back to their facility as she has proven she will not abide by the rules and they cannot meet her needs. He states that pt left their facility on September 14 without stating where she was going and did not come back. She went to the ER and was returned to their facility on September 18. They discussed the rules of the AF and asked if she was willing to abide by those rule and he states she became very agitated, swearing and yelling, and she left their facility in her van. She was only there a total of about 3 days. He states that while she was at [facility] she visited their facility twice and decided to come there and was aware of the rules. He confirmed again that they still have O2 and equipment from [facility] at their facility they are not willing to release to her directly and she will need to go through [facility], who has refused to supply pt with this equipment. SELLING UNDERWRITER spoke with pt about discharge plan. Pt wants to return to her van, SELLING UNDERWRITER explained that no local companies are able/willing to provide her O2 if she returns to her van. Pt states she does not want to go to an AF, but is willing to consider going to one if she is able to talk with the person who runs it and find out what the facility is like. 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 Pt requested phone number for [facility] so she could talk with the Noy CASAS, about O2. SELLING UNDERWRITER supplied pt with the main line phone number to [facility]. Pt requested a wheelchair at discharge, SELLING UNDERWRITER will await MD prescription to see how much this may cost pt. SELLING UNDERWRITER will continue to follow. Assessment: Homeless pt who is independent at baseline. Requires O2. Plan: Pt willing to consider different AFH's. SELLING UNDERWRITER and UR Specialist will begin AFH search for pt. [facility]. All 3 local O2 companies refuse to work with pt. DORINA Browning
--- NOTE | 2016-10-05 12:48 | PCM.PNMED ---
Subjective Date of Service Oct 05, 2016 Subjective Has been active in room and out in the diaz a bit. Would like a wheel chair. Patient very agumentative about her situation and lacks insight on obtaing and working with resources, facilities Oxygen companies. No other problems noted by nursing. Exam Vital Signs Vital Sign - Last Date Time Temp Pulse Resp B/P Pulse Ox O2 Delivery O2 Flow Rate FiO2 10/05/16 08:30 Supplement Oxygen 10/05/16 05:46 37.1 71 22 118/68 94 3.00 Intake and Output 10/04/16 10/04/16 10/05/16 Cumulative From/Thru 15:00 23:00 07:00 09/30/16 13:10 - 10/05/16 05:49 Intake Total 200 ml 400 ml 5756 ml Output Total 600 ml 2950 ml Balance -400 ml 400 ml 2806 ml Intake Oral 200 ml 400 ml 5756 ml IV Total 0 ml Output Urine Total 600 ml 2950 ml # Voids 2 15 # Bowel Movements 3 Exam Skin warm and dry HENT; good hydration; CV; regular, no edema, no JVD Resp; moderate air movement, few scattered end expiratory wheezes GI; soft non acute benign Lab and Diagnostics Result Diagram: 09/30/16 0909/30/16 0929 Assessment & Plan # Exacerbation of chronic back and right hip pain, knee pain, poa, improving, -Xray of hip, knee unremarkable for acute dz, likely chronic arthritis. -LE doppler negative of dvt. -Tylenol or Vicodin as needed -continue tramadol 50mg bid, tylenol bid -appreciate PT, cleared for d/c to home #chronic COPD/asthma, poa, stable -has not been on inhalers for at least the past week and oxygen for possibly a few weeks, noted baseline chronic hypoxia, down to low80% with exertion. -patient will needs home O2 tx but we are unable to arrange, - Received DuoNeb and steroids in the emergency department, continue Advair, proair as needed - O2 supplement as needed. - Chest x-ray with no infiltrate and she gives no symptoms for pneumonia or acute bronchitis, reported to have received Zithromax in the emergency department that at this point I will not continue -continue to arrange O2 at discharge, # acute UTI, poa resolved -Worsening of chronic urinary frequency, UA positive E.Coli -started Macrobid for 5D # Disposition: -patient needs O2 for safe discharge but apparently has burned a lot of bridges with Facilities and Oxygen companies. In discussion with social service today they have not been able to find a discharge solution that would provide O2. They will continue to work on this. Rhett Talbert MD Oct 05, 2016 12:48
[2016-10-05 15:50] VITALS: BP 130/78; PULSE 62; RESP 20; O2SAT 96
--- NOTE | 2016-10-05 19:10 | NUR ---
Behavior/Threatening to Leave AMA Pt. became very agitated this evening, stating that she wants to leave AMA. Starting taking off gown and removing O2 and YARD RIGGER. Pt. demanding that we send her with wheelchair and O2. Explained to pt. that we are in the process of finding her a place to go and getting her set up with O2 and wheelchair but pt. became increasingly agitated stating that we are withholding wheelchair and oxygen because we do not care and kept demanding to leave. Pt. also stated that she called the police. This RN explained risks of leaving AMA. Pt. expressed understanding of risks, including , but refused to sign AMA paperwork. MD and Nursing Credit Compliance Officer notified. Per Nursing Credit Compliance Officer, this RN and credit charge authorizer offered to call pt. a taxi and assist her to front entrance, but pt. would need to pay for taxi and could not take wheelchair. Pt. yelling, stating "why would you call me a cab when I can call one myself?" Pt. also demanding street clothes. dehydrator tender and this RN explained that we do not have street clothes but could give her a gown and pants. Pt. would not let staff know if she had called a taxi or not. Currently laying in bed. Refusing to let staff change bedding or assist her with cleaning up. Pt. not confirming that she is leaving AMA or not.
[2016-10-05 22:16] VITALS: PULSE 63; RESP 18; O2SAT 78
[2016-10-06 03:24] VITALS: BP 129/68; PULSE 82; RESP 19; O2SAT 92
--- NOTE | 2016-10-06 05:35 | NUR ---
Status Assumed pt. care at 1930, pt. was frustrated and stating she wants to leave AMA, explained the risk with pt. understanding, Pt. calmed down, accepted care and decided to stay for the night but will leave AMA in the morning, MD aware, On TEAM LEADER SURGERY and O2 at 2lpm NC, SpO2 in low 90s, desats to low 80s when OOB, VSS afebrile, will continue to monitor.
[2016-10-06] MEDS: Sodium Chloride LOK Flush 10 mL Syringe IVFLUSH SCH ×2 (08:30→16:30)
[2016-10-06] MEDS: Fluticasone-Salmererol 250-50 Inhaler INHALATION SCH ×2 (08:46→19:40)
[2016-10-06] MEDS: Polyethylene Glycol (PEG) 17 Gm Powder PO SCH ×2 (08:47→19:42)
[2016-10-06] MEDS: Pantoprazole 20 mg ER24 Tablet PO SCH ×2 (08:47→19:42)
[2016-10-06] MEDS: Nitrofurantoin Monohyd-Macrocryst 100 mg Capsule PO SCH ×2 (08:49→19:41)
[2016-10-06 11:30] VITALS: BP 117/77; PULSE 79; RESP 20; O2SAT 93
--- NOTE | 2016-10-06 12:01 | NUR ---
Social Work- Multi-Disciplinary Rounds SW to see pt to speak about AFH placement and coordination of O2. AFH placement search to begin. SW will continue to follow. DORINA Berger Addendum: 10/06/16 at 1606 by DORIAN GERMAN SS MD states pt continues to be medically stable for d/c if she has O2. O2 and supplies are unavailable to pt if she discharges to her van, all 3 local [employer] have refused to serve pt as they do not see this as a safe option. DORINA Berger
[2016-10-06] MEDS: HYDROcodone-APAP 5-325 mg Tablet PO PRN (13:31)
--- NOTE | 2016-10-06 16:48 | NUR ---
Status Pt continues to require low flow O2 1-2L. Sats stable. No SOB without exertion. Pt up OOB in chair today. Showered. Right hip pain controlled with one dose of norco so far this shift and scheduled tramadol. Behaviors appropriate. Chair/bed hema in use.
[2016-10-06 18:13] VITALS: BP 126/83; PULSE 79; RESP 22; O2SAT 93
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
[2016-10-07] MEDS: Sodium Chloride LOK Flush 10 mL Syringe IVFLUSH SCH ×3 (00:27→16:30)
[2016-10-07 04:00] VITALS: BP 138/81; PULSE 82; RESP 20; O2SAT 91
--- NOTE | 2016-10-07 06:02 | NUR ---
Pain Pt stated pain as tolerable and did not want any medication beside prescribed Tramadol at 2030. Pt ambulated without difficulty with FWW to bathroom without any increased complaints of pain.
[2016-10-07 07:00] LABS: BASOPHILS % (AUTO) 0.4 % (0-3); EOSINOPHILS % (AUTO) 5.4 % (0-5); MONOCYTES % (AUTO) 12.7 % (4-12); Mean Corpuscular Hemoglobin 30.2 pg (27.0-35.0); Mean Corpuscular Volume 91.7 fL (81-100); NEUTROPHILS % (AUTO) 54.2 % (40-74); Platelet Count 290 bil/L (150-400)
--- NOTE | 2016-10-07 07:07 | NUR ---
Combative Pt does not want to wear O2 beginning during shift change and wants to leave. Pt requested phone numbers to [facility] so she can go to [place] emergency department. Pt is worked up and yelling. Pt was given numbers and Maryann Grigsby is taking over care.
[2016-10-07 08:17] VITALS: BP 134/69; PULSE 84; RESP 18; O2SAT 94
[2016-10-07] MEDS: Polyethylene Glycol (PEG) 17 Gm Powder PO SCH (08:19)
[2016-10-07] MEDS: Nitrofurantoin Monohyd-Macrocryst 100 mg Capsule PO SCH (08:19)
[2016-10-07] MEDS: Pantoprazole 20 mg ER24 Tablet PO SCH (08:20)
[2016-10-07] MEDS: Fluticasone-Salmererol 250-50 Inhaler INHALATION SCH (08:20)
--- NOTE | 2016-10-07 09:17 | NUR ---
Spoke with David at [facility] [phone], called and inquired about patient paying for lost equipment in order to rent more and at this time this is not an option. [facility] is concerned with patient behavior and what is saying this will not happen again. Patient's insurance is liable and this point and [facility] is not willing to take patient back on as a client. Updated RN TRIAGE
--- NOTE | 2016-10-07 09:31 | NUR ---
Anxiety Pt. has been anxious about getting out of [facility]. She threatened leaving AMA according to shift report. Talked to patient about her discharge plan this morning. Explained to patient that she needs O2 supplement on discharge otherwise she will be readmitted for medical care. She desaturated to 80s immediately when she took off her O2 NC. Pt. was made aware that [facility] is actively working on finding proper placement with O2 service. Patient nodded and verbalized understanding of her discharge plan reluctantly.
[2016-10-07 11:50] VITALS: BP 129/72; PULSE 75; RESP 18; O2SAT 94
[2016-10-07] MEDS: HYDROcodone-APAP 5-325 mg Tablet PO PRN (12:08)
--- NOTE | 2016-10-07 15:14 | NUR ---
spiritual care: follow up/staff referral conversational visit. pt shared her relief in visit from her friend Anahi and Anahi's willingness to assist in pt's plan of care/discharge. pt stated she finds oxygen tube uncomfortable and karlie difficult when she's eating. She acknowledged that the chimes indicate low levels, but she said she felt she could breathe comfortably and deeply in any case. Pt described the day's activities including some of her shelter hopes. Pt genial, energetic in conversational style and rec. visit from [facility] while i was on unit. continuing to follow.
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
== END 2016-10-07 19:58 | disposition left against medical advice (07) ==
LOC: SED 07:56 → MOC 11:24
PROVIDERS: ADMIT Internal Medicine; ATTEND Internal Medicine
DX: J44.1 Chronic obstructive pulmonary disease with (acute) exacerbation (principal); J45.909 Unspecified asthma, uncomplicated; M16.0 Bilateral primary osteoarthritis of hip; M17.0 Bilateral primary osteoarthritis of knee; N39.0 Urinary tract infection, site not specified; B96.20 Unspecified Escherichia coli [E. coli] as the cause of diseases classified elsewhere; R32 Unspecified urinary incontinence; M54.5 Low back pain; M25.551 Pain in right hip; R53.1 Weakness; I10 Essential (primary) hypertension; R09.02 Hypoxemia; Z59.0 Homelessness; Z88.0 Allergy status to penicillin; Z88.2 Allergy status to sulfonamides
CPT/HCPCS: 36415; 71020; 73502; 73560; 80053; 81000; 83605; 83690; 83735; 85025; 85610; 87077; 87086; 87088; 87186; 93970; 94664; 94799; 97116; 97162; 99285; G0378; G8978; G8979; J1650; J7620

== ENCOUNTER 2016-10-13 15:04 | Emergency (ER) | payer MEDICARE, MEDICAID ==
[~2016-10-13] VITALS: Ht 162.6 cm; Wt 96.4 kg
[~2016-10-13 15:04] MED LIST changes: +ACET-2766 PO; +ACET325T51 PO; +NITR100 PO; +POLY17PO6 PO; +TRAM-14 PO; -ZIT250 PO
[2016-10-13 15:29] VITALS: BP 144/92; PULSE 104; O2SAT 92
--- NOTE | 2016-10-13 15:32 | ED.REPORT ---
HPI-General Illness Date of Service Oct 13, 2016 ED Provider: Dr. Tom Louis Patient is a 76 year old female with a hx of HTN, COPD, and frequent ED visits who presents to the ED via EMS c/o difficulty breathing. She was found in front of a local [facility] by [facility] staff, reporting weakness and SOB. [facility] staff called local FD. Her SATS were initially found to be 92% on RA, and increased to 98% en route after duo-neb was administered. She is presently homeless, after having left [facility], adult family home. She is well-known to us as a frequent emergency department visitor to the difficult social situation including living out of her van until recently impounded. Having chest pain, not having fevers not vomiting Nursing Notes Stated Complaint: SOB Chief Complaint: Respiratory Complaints Nursing Notes Reviewed: Yes Allergies: Coded Allergies: Penicillins (Verified Allergy, Unknown, 07/14/16) Sulfa (Sulfonamide Antibiotics) (Verified Allergy, Unknown, 07/14/16) Scheduled Acetaminophen (Tylenol Arthritis) 650 Mg Tablet.er 650 MG PO BID Albuterol HFA (Proair HFA) 8.5 Gm Hfa.aer.ad 2 PUFFS INHALATION Q4H Fluticasone/Salmeterol (Advair 250-50 Diskus) 60 Puff/Inh Disk 1 PUFF INHALATION BID Nitrofurantoin Monohyd/M-Cryst (MacroBid) 100 Mg Capsule 100 MG PO BID Polyethylene Glycol 3350 (Miralax) 17 Gm Powd.pack 17 GM PO DAILY Tramadol (Ultram) 50 Mg Tablet 50 MG PO BID Scheduled PRN Acetaminophen (Acetaminophen) 325 Mg Tablet 325 MG PO Q4H PRN PRN For Pain General Time Seen by MD: 15:32 Chief Complaint Breathing problem Hx Obtained From: Patient, EMS Arrived By: Ambulance Sudden in Onset?: Yes Symptom Duration: Since onset Severity: Current: No pain currently Recent Healthcare: Recent doctor visit Similar Sx Previous: Yes Past Medical History Past Medical History Notes: PCP: Dr. Ariana Miller Past Medical History Chronic hip and back pain Pneumonia with hospitalization. Reports: Asthma, COPD, Hypertension Past Surgical History Stomach surgery. Right leg surgery. Hiatal hernia Family History non-contributory Smoking History Current Every Day Smoker Social History Was living at [facility], left a few days ago. Currently living in [place]. Alcohol Use: Denies alcohol use Drug Use: Denies drug use Other Social History: Lives in detention, Homeless Ambulatory Status Wheelchair Review of Systems Full Review of Systems Respiratory: Reports: Shortness of breath Musculoskeletal: Reports: Extremity pain Neurologic: Denies: Change LOC, Confusion, Headache, Lightheaded, Syncope Complete sys rev & neg: except as marked. Physical Exam Vital Signs Vital Signs Date Time Temp Pulse Resp B/P Pulse Ox O2 Delivery O2 Flow Rate FiO2 10/13/16 21:42 91 18 128/70 92 Room Air 10/13/16 20:47 89 91 Room Air 10/13/16 19:22 89 18 112/86 94 Nasal Cannula 2 10/13/16 15:29 37.8 104 144/92 92 Room Air Initial VS: Reviewed General/Constitutional: Awake, Alert, Cooperative speaking in full sentences Head / Eyes: Atraumatic, Normocephalic, PERRL ENT: Atraumatic, Airway patent, Mucous membranes moist Respiratory / Chest: Atraumatic, Breath sounds NL, Breath sounds = bilat Cardiovascular: Heart rate NL, Regular rhythm, Heart sounds NL Upper Extremities Upper Extremity / MS: Atraumatic, Inspection NL, Full range of motion, No deformity Lower Extremity / Pelvis / MS: Atraumatic, Inspection NL, Full range of motion , No deformity Skin: Atraumatic, Color NL, No rash Neurologic: Oriented X3, Speech NL, No motor deficits Interpretation & Diagnostics ECG Interpretation ECG Interpretation: baseline no acute changes Time: 16:10 Interpreted by: ED physician Normal ECG Interpretation: Normal sinus rhythm (95) X-Ray Chest Interpretation Chest Xray Interpretation: IMPRESSION: Minimal left basilar atelectasis. Right lung is incompletely visualized, as costophrenic angle is not included within the [id number]. Dictated by: Lanie Joseph M.D. on 10/13/2016 at 16:10 Approved by: Lanie Joseph M.D. on 10/13/2016 at 16:11 View: Portable Interpretation / Wet Read by: Interpret - Radiologist Re-Eval/Medical Decision Med Decision/Clinical Course 76-year-old female who is homeless after walking away from placement in an adult family home. The patient has a difficult social situation but is also very difficult to place. Today her primary concern seemed to really revolve around housing, her respiratory issues do not seem any worse than typical for her. She reports having been on oxygen in the past however is tolerating and has tolerated being off oxygen for a week. After discussion with social media manager, we do not have a good place for this lady to go at present. Interestingly though she initially claimed on multiple occasions that she did not have any place to go or anyone to come and get her, when it became time for us to discharge her, the patient was able to call a friend who came to get her. Time of Eval: 17:11 Re-Evaluation/Progress Note: Pt refuses labs. Time of Eval: 18:56 Re-Evaluation/Progress Note: Pt passes road test with walker. She states that she "just wants to go home." Pt claims she lives at [facility] but WAITER/WAITRESS ROOM SERVICE called [facility] and was informed that the pt no longer lives there. The van she usually lives in is impounded. Pt only has $15 in her purse. Decision made with WAITER/WAITRESS ROOM SERVICE to discharge pt to the [facility]. Pt to follow up with [facility] in the morning for additional resources. Time of Eval: 21:14 Re-Evaluation/Progress Note: Pt rechecked. Informed of plan to discharge and follow up with [facility] in the morning. Time of Eval: 21:39 Re-Evaluation/Progress Note: After being informed of her discharge, she found a friend that could pick her up from the ED. Counseled Regarding: Diagnosis, Lab results, Need for follow-up, When/why to return to ED Discharge & Departure Primary Impression: Shortness of breath Additional Impression: Homelessness Disposition: Home Discharge Condition All VS Reviewed: Yes Condition: Stable Additional Instructions: In the ED today, we did not find any acute medical problem. Unfortunately, there is no longer a room for you at [facility]. We are not able to provide housing, Try [facility] tomorrow, or a bus to [place] to stay at the custodial there. Contact your insurance case manager and primary care provider soon. Referrals: Adam Lane MD (PCP) [facility] [employer] Portion of this note were transcribed by Marcela Cuba. I, Dr. Louis, personally performed the history, physical exam, and medical decision-making: I reviewed and confirmed the accuracy for the information in the transcribed note. Signed by: sky Mckee, 10/13/16 [id number] copies to: Adam Lane MD, Donald L MD Oct 13, 2016 15:32 Marcela Cuba Oct 13, 2016 16:09
--- NOTE | 2016-10-13 16:12 | DRSVH ---
PROCEDURE: X-RAY CHEST ONE VIEW, PORTABLE ([id number]) INDICATIONS: dyspnea and weakness TECHNIQUE: One view of the chest was acquired. COMPARISON: [facility], CR, XR CHEST 2VW, 09/30/2016, 9:27. FINDINGS: Surgical changes and devices: None. Lungs and pleura: The right costophrenic angle is not completely included within the [id number]. T here is likely a trace component of linear atelectasis within the left base. Mediastinum: Mediastinal contours appear normal. Heart size is normal. Bones and chest wall: No suspicious bony lesions. Overlying soft tissues appear unremarkable. IMPRESSION: Minimal left basilar atelectasis. Right lung is incompletely visualized, as costophrenic angle is not included within the [id number]. Dictated by: Lanie Joseph M.D. on 10/13/2016 at 16:10 Approved by: Lanie Joseph M.D. on 10/13/2016 at 16:11
[2016-10-13 19:22] VITALS: BP 112/86; PULSE 89; RESP 18; O2SAT 94
[2016-10-13 20:47] VITALS: PULSE 89; O2SAT 91
[2016-10-13 21:42] VITALS: BP 128/70; PULSE 91; RESP 18; O2SAT 92
== END 2016-10-13 21:51 | disposition home or self-care (01) ==
LOC: SED 15:04 → EDBD 15:04 → EDUNIT# 15:04 → SED 21:51
DX: R06.02 Shortness of breath (principal); R07.9 Chest pain, unspecified; R53.1 Weakness; I10 Essential (primary) hypertension; J44.9 Chronic obstructive pulmonary disease, unspecified; F17.200 Nicotine dependence, unspecified, uncomplicated; Z87.01 Personal history of pneumonia (recurrent); Z59.0 Homelessness; Z88.0 Allergy status to penicillin; Z88.2 Allergy status to sulfonamides